=== PATIENT | female | born 1980 | race Caucasian/White ===

== ENCOUNTER 2023-11-04 13:19 | Inpatient (IN) | payer MEDICAID, OTHER, SELFPAY ==
--- NOTE | ~2023-11-04 | XR_ITS ---
EXAMINATION: XR CHEST CLINICAL INFORMATION: Cough. Fever. COMPARISON: None available. TECHNIQUE: 2 views of the chest were obtained. FINDINGS: No significant abnormality is noted involving the heart, lungs, mediastinum, bony thorax or soft tissues. XR/XR chest 2V IMPRESSION: Unremarkable examination.
--- NOTE | 2023-11-04 13:44 | ED_ITS ---
HPI - General Adult General Chief complaint: Psychiatric Symptoms Stated complaint: Mental Breakdown Time Seen by Provider: 11/04/23 13:55 Source: patient Mode of arrival: ambulatory Limitations: no limitations History of Present Illness HPI narrative: 43 yo female with PMH of opiate abuse IVDA and depression she notes she has been homeless and struggling. She has some sweats and a productive cough. She also has pain all over. She would be interested in starting methadone if she goes into withdrawal. She states she has been so depressed she is hitting herself in the head. Was on suboxone but has not taken it in a while complaint: depressed, URI, drug abuse Onset (ago): day(s) Radiation: non-radiation Severity: moderate Relieving factors: none Exacerbating factors: other (life stress) Associated symptoms: cough and fever/chills (subjective) Treatments prior to arrival: none Related Data Home Medications Medication Instructions Recorded Confirmed No Known Home Meds 11/04/23 11/04/23 Allergies Allergy/AdvReac Type Severity Reaction Status Date / Time No Known Allergies Allergy Verified 11/04/23 13:50 Review of Systems 2 Review of Systems: Constitutional : No Fever, No Chills ENT/Mouth : No Ear Pain, No Nasal Congestion, No sore throat Eyes: No Eye Pain, No Swelling, No Redness Cardiovascular : No Chest Pain, No SOB Respiratory : No Cough, No Sputum, No Dyspnea Gastrointestinal : No Nausea, No Vomiting, No Diarrhea, No Hematochezia, No Melena Genitourinary : No Dysuria, No Urinary Frequency, No Hematuria Musculoskeletal : No Myalgias Skin : No Skin Lesions, No rash Neuro : No Weakness, No Numbness, No Paresthesias, No Dizziness, No Headache Psych : positive Anxiety, positive Depression, positive SI no HI All other systems reviewed and are negative FOR[facility]LY [facility], [facility] Past Medical History Attestation statement: The following information was validated with the patient. Medical History Polysubstance abuse Social History Social History (Updated 11/04/23 @ 14:32 by Julia Butts DO) Comment: M3 Patient Tobacco Use Status: Current someday Tobacco user Smoked in Last 30 Days: Yes Use of substances other than those prescribed or required for medical reasons: Yes Substance Use Type: Crack/Cocaine and Heroin Advance Directives: Yes Advance Directives Information Provided: Yes Advance Directives on File: No Patient : No Physical Exam ED Vital Signs: Vital Signs - 24 hr 11/04/23 13:48 Temperature 98 F Pulse Rate 85 Respiratory Rate 16 Blood Pressure 108/50 L Pulse Oximetry 98 Oxygen Delivery Method Room Air BMI result Body Mass Index 16.5 Appearance: Alert. Oriented X3. No acute distress. Disheveled , talking fast , has crack pipe and used syringe along with drug paraphernalia in her belongings Eyes: Pupils equal, round and reactive to light. ENT: Pharynx normal. Neck: Normal inspection. Neck supple. CVS: Normal heart rate and rhythm. Pulses normal. Respiratory: No respiratory distress. Breath sounds normal. Abdomen: Soft and nontender. Skin: Skin warm and dry. Normal skin color. Normal skin turgor. Extremities: No lower extremity edema. Neuro: Oriented X 3. No motor deficit. No sensory deficit. Course Course Course Narrative: This is an RME: Additional HPI, ROS, PE not included below will be deferred to primary provider. Patient is a 43-year-old female who presents emergency department reporting that she has experiencing a mental breakdown, she reports being a Nomad, residing in a shack. Stats she is striking herself in the head, feels out of control, I need rest , feels overwhelmed, but denies SI. [facility] who were trying to facilitate respite but due to illness advised to come to ED. Having diffuse body pain, fevers, cough, and a fracture to left foot x2 years that is increasingly painful. Also using heroin IV and crack cocaine, not interested in detox. Plan: viral testing, labs for medical clearance, CARE team Reevaluation(s) Reevaluation #1: Physician observation started at 322pm. Patient placed in physician observation because the patient needed more time for CARE team to assess the need for psych admission. At the time observation was started the patient's vitals were stable, patient is alert and oriented but slightly anxious, Neuro: nonfocal, CV RRR, Lungs clear Reevaluation #2: 16:03 Dr. Chan's Note Physician observation continued Following information was obtained from the emergency depart Behavioral Unit nurse. Patient did receive 10 mg of methadone for withdrawal however she states she still feels like she is withdrawing and the last time she received methadone 40 mg did not even touch her. Patient states that she received methadone 2 months ago when she was at [employer] but has not been in a methadone program. Patient states she would be interested in getting into a methadone program to help with her opiate use disorder. I ordered methadone 40 mg now and 40 mg daily, patient will need to be evaluated by care team/recovery team to help her get into a methadone program. Time: 16:03 Medications Administered Discontinued Medications Generic Name Dose Route Start Last Admin Trade Name Kevin PRN Reason Stop Dose Admin Methadone HCl 10 mg 11/04/23 14:15 11/04/23 14:44 Methadone Hcl 20 Mg/2 Ml Oral.Conc PO 11/04/23 14:16 10 mg ONCE ONE Administration Medical Decision Making Medical Decision Making MDM Narrative: 43 yo female with PMH of substance abuse IVDA and now here with URI symptoms - flu covid CXR and basic labs ordered she is also reporting depression and self harm at this time methadone 10mg and CARE team consult ordered Differential Diagnosis Differential Diagnoses: The differential diagnosis associated with the presentation includes COVID, flu, drug abuse no back pain to suggest epidural abscess and walking around bending down without any issues Admission/Observation Consideration of admission/observation: Escalation of care including admission/observation considered observe until seen by CARE team Consult Healthcare Provider Management of the patient was discussed with: Behavioral Health Provider Lab Data [facility] Lab Attestation statement: I reviewed the patient's lab results. 11/04/23 14:43 11/04/23 14:43 Labs: Lab Results 11/04/23 11/04/23 Range/Units 14:43 15:07 WBC 8.1 (4.8-10.8) X10*3/uL RBC 4.91 (4.20-5.50) X10*6/uL Hgb 12.6 (12.0-16.0) g/dl Hct 40.1 (37.0-47.0) % MCV 81.7 (80.0-98.0) fL MCH 25.7 L (27.0-33.0) pg MCHC 31.4 (31.0-35.0) g/dl RDW 14.8 (11.0-16.0) % Plt Count 399 (160-400) X10*3/uL MPV 9.1 L (9.4-12.3) fL Immature Gran % (Auto) 0.4 (0.0-0.4) % Neut % (Auto) 64.4 (45-73) % Lymph % (Auto) 27.4 (20-40) % [place] % (Auto) 6.7 (2-11) % Eos % (Auto) 0.7 (0-4) % Baso % (Auto) 0.4 (0-2) % Lymph # (Auto) 2.2 (1.2-4.9) X10*3/uL [place] # (Auto) 0.5 (0.1-1.2) X10*3/uL Eos # (Auto) 0.1 (0.0-0.4) X10*3/uL Baso # (Auto) 0.0 (0.0-0.2) X10*3/uL Abs Immat Gran (auto) 0.03 (0.00-0.03) X10*3/uL Absolute Neuts (auto) 5.2 (2.0-8.3) x10*3/uL Absolute Nucleated RBC 0.000 (0.0-0.012) X10*3/uL Nucleated RBC % (auto) 0.0 (0.0-0.2) /100WBC Sodium 141 (135-145) mmol/L Potassium 4.2 (3.3-5.1) mmol/L Chloride 105 (96-108) mmol/L Carbon Dioxide 28 (22-29) mmol/L Anion Gap 12 (12-20) BUN 14 (9-16) mg/dL Creatinine 0.79 (0.5-1.4) mg/dL Estim Creat Clear Calc 60.4 Estimated GFR > 60 Random Glucose 96 (60-115) mg/dL Calcium 9.0 (8.4-10.2) mg/dL Total Bilirubin 0.3 (0.0-1.0) mg/dL AST 21 (5-31) U/L ALT 20 (0-31) U/L Alkaline Phosphatase 72 (39-117) U/L Total Protein 7.7 (6.5-8.0) g/dL Albumin 4.2 (3.5-5.0) g/dL Urine Color Yellow Urine Appearance Cloudy Urine pH 7.5 (5.0-9.0) Ur Specific [place] 1.025 (1.005-1.025) Urine Protein Trace (Neg-Trace) mg/dL Urine Glucose (UA) Negative (Negative) mg/dL Urine Ketones Negative (Negative) mg/dL Urine Blood Negative (Negative) Urine Nitrite Negative (Negative) Ur Leukocyte Esterase Small (1+) H (Negative) Urine RBC 0-2 (0-2) /HPF Urine WBC 6-10 (0-5) /HPF Ur Squamous Epith Cells 6-10 (0-2) /HPF Urine Bacteria 1+ (None Seen) Hyaline Casts 0-2 (0-2) /LPF Urine Test NEGATIVE (NEGATIVE) Urine Opiates Screen POSITIVE H (Not Detect) Urine Fentanyl Screen POSITIVE H (Not Detect) Ur Barbiturates Screen Not Detected (Not Detect) Ur Phencyclidine Scrn Not Detected (Not Detect) Ur Amphetamines Screen Not Detected (Not Detect) U Benzodiazepines Scrn Not Detected (Not Detect) Urine Cocaine Screen POSITIVE H (Not Detect) U Marijuana (THC) Screen Not Detected (Not Detect) Ethyl Alcohol < 10 mg/dL COVID-19 (MAXINE) Negative (Negative) COVID-19 Clin Com See Note Influenza Type A (ARNOLDO) Negative (Negative) Influenza Type B (ARNOLDO) Negative (Negative) Influenza A & B Note See Note Independent Interpretation I performed an independent interpretation of an: Plain X-Ray Radiology Impression Discussion of test interpretation with radiology: I have reviewed the radiologist's reading. Social Determinants Patient?s care significantly limited by Social Determinants of Health including: Inadequate housing, Low income, Problems related to primary support group and Unemployment Discharge Plan Discharge Clinical Impression: Depression, Polysubstance abuse Patient Disposition: Still a Patient Prescriptions: No Action No Known Home Meds Interventions: [place]-Suicide Risk Severity Scale Last Done: 11/04/23 14:00 ED Discharge Assessment Last Done: 11/04/23 14:06 Admission Worksheet (ED) Last Done: 11/04/23 14:09 Print Language: Luxembourgish
[2023-11-04 13:48] VITALS: BP 108/50; PULSE 85; RESP 16; TEMP 36.6; O2SAT 98; BMI 16.5
--- NOTE | 2023-11-04 14:02 | PC.NURSE ---
PT SEEN BY DR. CRANE. PT AWARE OF PLAN OF CARE.
[2023-11-04] MEDS: methADONE HCl 20 MG/2 ML ORAL.CONC 10 MG PO (14:44)
[2023-11-04 14:53] LABS: MANUAL DIFF FLAG NO
[2023-11-04 14:57] LABS: Basophils Percent Auto 0.4 % (0-2); Eosinophils Absolute Auto 0.1 X10*3/uL (0.0-0.4); Eosinophils Percent Auto 0.7 % (0-4); Hematocrit 40.1 % (37.0-47.0); Hemoglobin 12.6 g/dl (12.0-16.0); Imm Gran Abs Auto 0.03 X10*3/uL (0.00-0.03); Imm Gran Pct Auto 0.4 % (0.0-0.4); Lymphocytes Absolute Auto 2.2 X10*3/uL (1.2-4.9); Lymphocytes Percent Auto 27.4 % (20-40); Mean Corpuscular HGB Conc 31.4 g/dl (31.0-35.0); Mean Corpuscular Hemoglobin 25.7 pg (27.0-33.0); Mean Corpuscular Volume 81.7 fL (80.0-98.0); Mean Platelet Volume 9.1 fL (9.4-12.3); Monocytes Absolute Auto 0.5 X10*3/uL (0.1-1.2); Monocytes Percent Auto 6.7 % (2-11); Neutrophils Absolute Auto 5.2 x10*3/uL (2.0-8.3); Neutrophils Percent Auto 64.4 % (45-73); Platelet Count 399 X10*3/uL (160-400); Red Blood Count 4.91 X10*6/uL (4.20-5.50); Red Cell Distribution Width 14.8 % (11.0-16.0); White Blood Count 8.1 X10*3/uL (4.8-10.8)
--- NOTE | 2023-11-04 15:06 | PC.NURSE ---
Addendum entered by Karen Robledo 11/04/23 16:21: PT HAD A CXR DONE AND NOT AN X-RAY OF HER L FOOT. Original Note: PT RETURN FROM X-RAY DEPT. X-RAY DONE TO L FOOT (BUNION AREA). L FOOT IS REDEN, SWELLING AND TENDER TO TOUCH.
[2023-11-04 15:15] LABS: Ethanol < 10 mg/dL
[2023-11-04 15:16] LABS: Alanine Aminotransferase 20 U/L (0-31); Albumin Level 4.2 g/dL (3.5-5.0); Alkaline Phosphatase 72 U/L (39-117); Anion Gap 12 (12-20); Aspartate Amino Transferase 21 U/L (5-31); Bilirubin Total 0.3 mg/dL (0.0-1.0); Blood Urea Nitrogen 14 mg/dL (9-16); Carbon Dioxide 28 mmol/L (22-29); Chloride 105 mmol/L (96-108); Creatinine Clr Calc Pharmacy 60.4; Estimated Glomerular Filt Rate > 60; Glucose Random 96 mg/dL (60-115); Potassium 4.2 mmol/L (3.3-5.1); Sodium 141 mmol/L (135-145); Total Protein 7.7 g/dL (6.5-8.0)
[2023-11-04 15:17] LABS: Appearance Urine Cloudy; Color Urine Yellow; Glucose Urine UA Negative (Negative); Leukocyte Esterase Urine Small (1+) (Negative); Nitrite Urine Negative (Negative); PH 7.5 (5.0-9.0); Specific Gravity - Urine 1.025 (1.005-1.025); UMIC TRIGGER UACC YES; Urine Blood Negative (Negative); Urine Ketones Negative (Negative); Urine Protein Trace mg/dL (Neg-Trace)
[2023-11-04 15:18] LABS: UPreg QC Valid YES; Urine Pregnancy NEGATIVE (NEGATIVE)
[2023-11-04 15:21] LABS: COVID-19 Test Negative (Negative); IDNOW Serial# 152EDE1D; IDNOW Serial# 9DB6401D; Influenza A Negative (Negative); Influenza B2 Negative (Negative)
[2023-11-04 15:22] LABS: Amphetamine Screen Urine Not Detected (Not Detect); Barbiturates, Urine Not Detected (Not Detect); Benzodiazepines Screen Urine Not Detected (Not Detect); Cannabinoid Screen Urine Not Detected (Not Detect); Cocaine Screen Urine POSITIVE (Not Detect); Fentanyl, urine POSITIVE (Not Detect); Opiate Screen Urine POSITIVE (Not Detect); Phencyclidine Screen Urine Not Detected (Not Detect)
[2023-11-04 15:38] LABS: Bacteria Urine 1+ (None Seen); Hyaline Casts Urine 0-2 /LPF (0-2); RBC Urine 0-2 /HPF (0-2); UACC Culture Trigger YES
--- NOTE | 2023-11-04 15:50 | PC.NURSE ---
PT IS C/O CONGESTED, INCREASE URINARY FREQUENCY, HOT/COLD SWEATS AND I AM FEELING INFLATED . PT IS REQUESTING MORE METHADONE THAN THE DOSING OF METHADONE 10MG PO THAT SHE RECEIVED EARLIER. AWARE.
[2023-11-04] MEDS: methADONE HCl 20 MG/2 ML ORAL.CONC 40 MG PO (16:06)
--- NOTE | 2023-11-04 16:09 | PC.NURSE ---
PT MED X 1 WITH METHADONE 40MG PO. PT FACE APPEARS FLUSHED. WILL CONTINUE TO MONITOR.
--- NOTE | 2023-11-04 16:49 | PC.NURSE ---
GRADUATE ENGINEER (ELYSSA) AT BEDSIDE. PT AWARE OF PLAN OF CARE.
--- NOTE | 2023-11-04 17:20 | PC.NURSE ---
resting quietly in bed. nad. chest rise noted.
[2023-11-04 22:43] VITALS: BP 112/65; PULSE 58; RESP 20; TEMP 36.6; O2SAT 100
[2023-11-05 00:49] VITALS: BP 147/72; PULSE 65; RESP 17; TEMP 36.1; O2SAT 99
[2023-11-05] MEDS: methADONE HCl 20 MG/2 ML ORAL.CONC 40 MG PO (07:58)
[2023-11-05 08:11] VITALS: BP 133/71; PULSE 75; RESP 20; TEMP 37.2; O2SAT 99
--- NOTE | 2023-11-05 11:14 | PC.NURSE ---
Assumed care of patient at 1100, pt is sleeping at this time, equal chest rise noted, no apparent distress. Per CARE team, patient will be seen by recovery at some point today and then disposition will be determined.
--- NOTE | 2023-11-05 16:23 | MHC.RECOVRN ---
T/W went to meet with pt and provide support re: DARCIE and W/D sx. Pt in bed 3. Pt reports using heroin, approx 1gm (4-6 bags/day for the last 6-7 months. She has been using heroin for approx 1.5 years via IV route and last use was yesterday at 6AM. Pt did report a period of 9 months of sobriety during the 1.5 year time which was achieved on suboxone. Pt is currently receiving 40mg of methadone/day in ER for W/D sx. During my visit she was experiencing nausea, runny nose, increased urination, sweating and chills and her body feels inflated . She reports that the methadone just makes her more tired but does not take away the W/D sx. She reports that she has used subutex in the past when W/D with success. Pt's current goal is to receive treatment for her mental health (stabalization) and to get back into suboxone treatment. Pt also sounds somewhat congested. Uring culture, chest x ray and labs unremarkable for infection. Discussed case with supervisor phosphatic fertilizer Stacy Webb and she will decrease methadone and recommends pt other sx be treated medically (I.e. tylenol/motrin). Once pt's psych disposition is decided we will assist with connecting her with MAT resources. This expert medical writer communicated plan to care team, nurse Karla and pt. I will check on pt. tomorrow for further needs.
[2023-11-05] MEDS: LORazepam 1 MG TABLET PO (18:34)
[2023-11-05 18:52] VITALS: BP 122/74; PULSE 67; RESP 18; TEMP 36.3; O2SAT 98
--- NOTE | 2023-11-05 22:52 | PC.NURSE ---
Pt had uneventful day, now sleeping, respirations even and unlabored, no apparent distress. Continue plan of care for CARE/recovery follow up in am
--- NOTE | 2023-11-06 | ECG_ITS ---
Test Reason : pos cocaine Blood Pressure : / mmHG Vent. Rate : 079 BPM Atrial Rate : 079 BPM P-R Int : 138 ms QRS Dur : 094 ms QT Int : 404 ms P-R-T Axes : 064 078 021 degrees QTc Int : 463 ms Sinus rhythm with occasional Premature ventricular complexes Incomplete right bundle branch block Borderline ECG No previous ECGs available Referred By: Julia Butts Electronically Signed By:COREY SHAFFER MD
[2023-11-06 03:04] VITALS: BP 138/77; PULSE 75; RESP 15; TEMP 37.1; O2SAT 99
--- NOTE | 2023-11-06 06:36 | PC.NURSE ---
Assumed care of pt at 2300. Pt had an uneventful night. OOB independently to go to the bathroom, and back to bed. Plan of care ongoing.
[2023-11-06] MEDS: methADONE HCl 20 MG/2 ML ORAL.CONC PO (07:58)
[2023-11-06] MEDS: LORazepam 1 MG TABLET PO (08:19)
[2023-11-06 08:23] VITALS: BP 133/70; PULSE 80; RESP 16; TEMP 36.7; O2SAT 97
--- NOTE | 2023-11-06 11:02 | PC.NURSE ---
Assumed care of patient at 1045, patient is sleeping at this time, respirations even and unlabored, skin is pwd, pt appears to be in no apparent distress. Morning hydroxizine and methadone dose not given by am RN due to patient falling asleep after initial morning dose of methadone.
--- NOTE | 2023-11-06 14:17 | PC.NURSE ---
Addendum entered by Iraida Barclay 11/06/23 14:17: continue plan of care for dual diagnosis bedsearch Original Note: Pt moved from BH 3 to ED 11 without issue. Pt calm and cooperative, respirations even and unlabored, offering no complaints at this time
[2023-11-06] MEDS: Ibuprofen 600 MG TABLET PO (15:00)
[2023-11-06] MEDS: cloNIDine HCL 0.1 MG TABLET PO (15:00)
[2023-11-06] MEDS: hydrOXYzine HCL 25 MG TABLET PO ×3 (15:01→20:37)
[2023-11-06 15:09] VITALS: BP 112/72; PULSE 77; RESP 16; TEMP 36.7; O2SAT 98
[2023-11-06 15:56] VITALS: PULSE 77
--- NOTE | 2023-11-06 16:08 | MHC.RECOVRN ---
T/W went to check on pt's symptom management this AM and re-assess for ATS vs. dual diagnosis bed. I met with pt. with care team staff Anahi. Pt still reporting she is uncomfortable with sweating and chills and that she can not rest comfortably. She was also upset that her methadone dose was decreased. We reviewed the discussion we had yesterday and pt. agrees that a higher dose of methadone may be needed to manage W/D. I contacted provider Stacy and reviewed symptoms and she increased methadone back to 40mg and also ordered comfort meds. I updated pt's nurse Karla and at the time pt was resting comfortably so I did not disturb her. We will continue to be available as needed for support
--- NOTE | 2023-11-06 21:54 | PC.NURSE ---
Assumed care of the pt at 1900. Pt ahs been asleep in bed, no complaints at this time. Food tray at bedside.
[2023-11-06 22:00] VITALS: BP 99/58; PULSE 73; RESP 16; TEMP 36.7; O2SAT 99
--- NOTE | 2023-11-06 22:01 | MHC.EDTECH ---
Patient slept most of the time ,ate 50 % of meals and drank 600 ml fluids ,1:1sitter at bedside .
--- NOTE | 2023-11-07 00:07 | PC.NURSE ---
Pt asleep at this time
[2023-11-07] MEDS: cloNIDine HCL 0.1 MG TABLET PO ×3 (04:59→18:20)
[2023-11-07] MEDS: Ibuprofen 600 MG TABLET PO (07:23)
[2023-11-07] MEDS: methADONE HCl 20 MG/2 ML ORAL.CONC 40 MG PO (07:23)
[2023-11-07] MEDS: hydrOXYzine HCL 25 MG TABLET PO ×4 (07:24→21:01)
--- NOTE | 2023-11-07 07:30 | PC.NURSE ---
Assumed care of pt from previous RN, pt c/o muscle cramps. Pt medicated per DEC. Pt ambulatory to commode.
[2023-11-07 08:48] VITALS: BP 119/62; PULSE 83; RESP 17; O2SAT 98
[2023-11-07 09:01] LABS: COVID-19 Test Negative (Negative); IDNOW Serial# 9DB6401D
--- NOTE | 2023-11-07 09:15 | PC.NURSE ---
Addiction medicine at bedside to evaluate patient.
--- NOTE | 2023-11-07 10:17 | MHC.RECOVRN ---
Met with pt after pt expressed interest in Subutex. Pt sitting in bed, awake, alert, easily engages in conversation. Pt reports having success with Subutex in the past and is interested in restarting. Educated pt on transition and precipitated withdrawal. Pt reports she will discuss transition once placed at dual dx facility. Pt agreeable to continue methadone to address withdrawal symptoms while at [facility]. Denies other questions or concerns. Provider aware.
--- NOTE | 2023-11-07 10:46 | PC.NURSE ---
Pt given ice cream per request, pt making her needs known. A&Ox3, calm cooperative.
[2023-11-07 15:32] VITALS: BP 82/47; PULSE 77; RESP 18; TEMP 36.7; O2SAT 98
--- NOTE | 2023-11-07 17:46 | PC.NURSE ---
Nursing note: 43 year old female DX: Moderate opioid use disorder, Moderate stimulant use disorder, Unspecified depressive disorder. Referred for treatment by CARE team. Arrived to unit approx: 1728. Patient signed conditional voluntary for admission. Skin check completed with EG RN. Patient cooperative with requests. Affect is tearful. Reports suicidal thoughts, feeling hopeless. States I don't want to suffer anymore, I want to feel better, not hopeless . There is nothing for me . Reports currently homeless, and can't find my family . Disheveled, poor attn to ADLS. Reports she would like to get her mental health organized, maintain better weight, not feel sick. States she has been using 1 gm of heroin/fentanyl by injection daily. States Subutex has been helpful in past. TOX screen positive for opioids and cocaine. Nursing assessment to be completed.
[2023-11-07 17:57] VITALS: BP 93/59; PULSE 67; RESP 16; TEMP 36.4; O2SAT 99
[2023-11-07 18:26] VITALS: BMI 18.1
[2023-11-07 20:20] VITALS: BP 71/41; PULSE 74; RESP 16; TEMP 36.6; O2SAT 98
[2023-11-07] MEDS: QUEtiapine Fumarate 50 MG TABLET PO (21:26)
[2023-11-07 21:30] VITALS: BP 116/78
[2023-11-08] MEDS: cloNIDine HCL 0.1 MG TABLET PO (05:32)
[2023-11-08 05:36] VITALS: BP 126/62; PULSE 80
--- NOTE | 2023-11-08 05:39 | PC.NURSE ---
Shairta c/o akathisia type symptoms. I've been feeling l;leola this since the ER muscles very still c/o difficulty walking. patient encouraged to speak with provider in am
[2023-11-08 07:40] VITALS: BP 96/56; PULSE 72; RESP 14; TEMP 36.4; O2SAT 99
[2023-11-08] MEDS: Acetaminophen 325 MG TABLET 650 MG PO (08:06)
[2023-11-08] MEDS: hydrOXYzine HCL 25 MG TABLET PO ×2 (08:06→12:59)
[2023-11-08] MEDS: methADONE HCl 20 MG/2 ML ORAL.CONC 40 MG PO (08:08)
[2023-11-08] MEDS: Nicotine Polacrilex 2 MG GUM 4 MG BUCCAL (08:56)
--- NOTE | 2023-11-08 12:19 | PC.NURSE ---
pt refused flu vaccine
--- NOTE | 2023-11-08 14:00 | HO.PSYADMNOT ---
HPI Date of Service: 11/08/23 Chief Complaint: Crisis Sources of Information: patient interviewed, chart reviewed and crisis/core team assessment reviewed HPI Subjective Notes: [place] Warning (given and shows understanding) and Conditional Voluntary Narrative: Ms. Sow is a 43 year-old woman who self presented to [facility] ED reporting depression and SI. Her utox was positive for opioids, fentanyl, cocaine. On the unit, pt presents as disheveled. She reports she came to the hospital because I had a fever for the past 2 years. She reports there is something internally wrong, I'm stiff, my muscles are not working, my brain wave is functioning, the patterns that goes through, the profession of my brain, I know what is right and what is wrong. She continued stating basically, I am a smart woman, there is something inside my that needs to come out. She also reports that there have been political forces preventing her from finding her family and having access to her money. She thinks she has about trillion dollars. She denies SI/HI. She appears internally preoccupied although she denies hearing voices. She reports poor sleep. She reports she has been homeless for about 2 years. She states she stays sometimes in the streets. Past Psychiatric History: Inpt: reports previous admission 2020 [facility] OP: none Past trial: risperidone Medical Evaluation Reviewed: Yes [facility] Medical History Polysubstance abuse Social History: reports she is . reports having children. not working Reports source of income is [employer]. Substance History: opioid: reports using on and off for the past 2 years. she reports using 2 grams daily cocaine: reports using 0.5 grams twice a week Alcohol: denies Diagnostics Vital Signs (24Hr): Vital Signs - 24 hr 11/07/23 15:32 11/07/23 17:57 11/07/23 20:20 Temperature 98.1 F 97.5 F 97.9 F Pulse Rate 77 67 74 Respiratory Rate 18 16 16 Blood Pressure 82/47 L 93/59 L 71/41 L Pulse Oximetry 98 99 98 Oxygen Delivery Method Room Air Room Air Room Air 11/07/23 21:30 11/08/23 05:36 11/08/23 07:40 Temperature 97.5 F Pulse Rate 80 72 Respiratory Rate 14 Blood Pressure 116/78 126/62 96/56 L Pulse Oximetry 99 Oxygen Delivery Method Room Air BMI result Body Mass Index 18.1 Labs 11/04/23 14:43 11/04/23 14:43 Labs: Laboratory Results - last 48 hr 11/07/23 08:32 COVID-19 (MAXINE) Negative COVID-19 Clin Com See Note Imaging Radiology Impressions: ITS Impressions Chest X-Ray 11/04/23 15:00 IMPRESSION: Unremarkable examination. Meds/Allergies Meds Home Medications Medication Instructions Recorded Confirmed Type No Known Home Meds 11/04/23 11/04/23 History Allergies Allergies Allergy/AdvReac Type Severity Reaction Status Date / Time No Known Allergies Allergy Verified 11/04/23 13:50 Mental Status Exam Mental Status Exam Narrative: Appearance: disheveled, unkempt, in NAD Behavior: cooperative Psychomotor: no agitation or retardation noted Speech: clear, normal rate/rhythm/volume, spontaneous TP: tangential, circumstantial at times TC: somatic preoccupations, paranoid delusions as well Mood: okay Affect: constricted SI: denies HI: denies VH/AH: appears internally preoccupied but denies when asked Delusions: somatic and paranoid delusions Insight/judgment: fair x 2. Memory/cog: alert, oriented x 3. Assessment & Plan Assessment & Plan (1) Schizophrenia: Status: Acute Code(s): F20.9 - Schizophrenia, unspecified (2) Cocaine use disorder, moderate, dependence: Status: Acute Code(s): F14.20 - Cocaine dependence, uncomplicated (3) Opioid use disorder, moderate, dependence: Status: Acute Code(s): F11.20 - Opioid dependence, uncomplicated Plan Ms. Sow is a 43 year-old woman who self presented to [facility] ED reporting increase depression and SI. She also presents with complex system of delusions including paranoid and somatic delusions. It appears she has been mostly untreated. She also presents with substance use disorder. she was started on methadone. We discussed risks, benefits and alternative treatment options, pt agreed to start risperidone. PLAN 1. Admit to M3, cv 15 minutes checks 2. start risperidone 1mg po BID 3. aftercare planning 4. obtain collateral information Patient educated on: diagnosis, medication risk/benefits and substance abuse Reason for continued inpatient stay Substantial Risk for: harm to self and inability to function Statement Statement: I have reviewed the history and physical and performed a pertinent examination on my patient. No changes have occurred unless specified. If the History and Physical was not performed prior to admission, the Hospitalist's service will be consulted for completing the admission physical. Time Spent With Patient Time: Total time managing care of this patient today ____ minutes.
[2023-11-08] MEDS: Loperamide HCl 2 MG CAPSULE 4 MG PO (14:31)
[2023-11-08] MEDS: Ibuprofen 600 MG TABLET PO (14:31)
[2023-11-08] MEDS: risperiDONE 1 MG TABLET PO (20:25)
[2023-11-08] MEDS: QUEtiapine Fumarate 50 MG TABLET PO (20:25)
[2023-11-08 20:26] VITALS: BP 101/60; PULSE 86; RESP 14; TEMP 37.2; O2SAT 99
[2023-11-08 22:51] VITALS: BP 98/55; PULSE 100; RESP 14; TEMP 37.1; O2SAT 98
[2023-11-09] MEDS: methADONE HCl 20 MG/2 ML ORAL.CONC 40 MG PO (08:16)
--- NOTE | 2023-11-09 10:04 | P.PNPSI_ITS ---
Subjective Subjective Date of Service: 11/09/23 Reason For Visit: Crisis Subjective Notes: Conditional Voluntary Interim History: Reviewed with . Keeping to self. Not attending groups. Pt reports she did not take the risperidal this morning because she does not like the way it made her feel; pt was unable to elaborate on this. Discussed zyprexa;risks/benefits, pt agreed to trial medication. She also requested to start hydroxyzine d/t helping with her anxiety. Pt stated, I get overwhelmed with boredom. I just want to punch myself sometimes. I feel like someone is inside me . Pt reports auditory and visual hallucinations; pt stated, the voices make fun of me and I see shadows . Pt reports she would like to go to a substance abuse program when discharged from hospital. Medication Compliance: Intermittent Attending Groups: No Review of Systems Constitutional: Reports as per HPI Eyes: Reports as per HPI Reports as per HPI Cardiovascular: Reports as per HPI Respiratory: Reports as per HPI Gastrointestinal: Reports as per HPI Genitourinary: Reports as per HPI Musculoskeletal: Reports as per HPI Skin/Breast: Reports as per HPI Reports as per HPI Psychiatric: Reports as per HPI Endocrine: Reports as per HPI Hematologic/Lymphatic: Reports as per HPI Allergic/Immunologic: Reports as per HPI Mental Status Exam Mental Status Exam Narrative: Pt is alert and oriented; behavior is cooperative; dressed in casual attire; mood is described as okay ; eye contact appropriate; Speech is normal rate, volume and prosody and not pressured; thought process is organized and goal directed; Thought content is on tx; pt reports she feels as if someone is inside of her . Reports auditory and visual hallucinations. denies SI/HI. Diagnostics Vital Signs (24Hr): Vital Signs - 24 hr 11/08/23 20:26 11/08/23 22:51 Temperature 99.0 F 98.8 F Pulse Rate 86 100 Respiratory Rate 14 14 Blood Pressure 101/60 98/55 L Pulse Oximetry 99 98 Oxygen Delivery Method Room Air Room Air BMI result Body Mass Index 18.1 Labs 11/04/23 14:43 11/04/23 14:43 Imaging Radiology Impressions: ITS Impressions Chest X-Ray 11/04/23 15:00 IMPRESSION: Unremarkable examination. Medications Medications Current Medications Acetaminophen (Acetaminophen 325 Mg Tablet) 650 mg PO Q6H PRN PRN Reason: Headache/Pain Mild Scale (1-3) Last Admin: 11/08/23 08:06 Dose: 650 mg Al Hydroxide/Mg Hydroxide (Magnesium Hydrox/Alum Hydrox 30 Ml Oral.Susp) 30 ml PO Q6H PRN PRN Reason: Heartburn/Nausea Ibuprofen (Ibuprofen 600 Mg Tablet) 600 mg PO Q8H PRN PRN Reason: Pain, Mild (Pain Scale 1-3) Last Admin: 11/08/23 14:31 Dose: 600 mg Loperamide HCl (Loperamide Hcl 2 Mg Capsule) 4 mg PO Q4H PRN PRN Reason: Diarrhea Last Admin: 11/08/23 14:31 Dose: 4 mg Magnesium Hydroxide (Milk Of Magnesia 30 Ml Oral.Susp) 30 ml PO DAILY PRN PRN Reason: Constipation Methadone HCl (Methadone Hcl 20 Mg/2 Ml Oral.Conc) 40 mg PO DAILY [facility] Last Admin: 11/09/23 08:16 Dose: 40 mg Nicotine Polacrilex (Nicotine Polacrilex 2 Mg Gum) 4 mg BUCCAL Q2H PRN PRN Reason: Nicotine Cravings Last Admin: 11/08/23 08:56 Dose: 4 mg Olanzapine (Olanzapine Odt 10 Mg Tab.Rapdis) 10 mg TRANSLINGU Q6H PRN PRN Reason: agitation Quetiapine Fumarate (Quetiapine Fumarate 50 Mg Tablet) 50 mg PO BEDTIME [facility] Last Admin: 11/08/23 20:25 Dose: 50 mg Risperidone (Risperidone 1 Mg Tablet) 1 mg PO BID [facility] Last Admin: 11/09/23 08:19 Dose: Not Given Trazodone HCl (Trazodone Hcl 50 Mg Tablet) 50 mg PO BEDTIME MRX1 PRN PRN Reason: Insomnia Allergies Allergies Allergy/AdvReac Type Severity Reaction Status Date / Time No Known Allergies Allergy Verified 11/04/23 13:50 Assessment & Plan Assessment & Plan (1) Schizophrenia: Status: Acute Code(s): F20.9 - Schizophrenia, unspecified (2) Cocaine use disorder, moderate, dependence: Status: Acute Code(s): F14.20 - Cocaine dependence, uncomplicated (3) Opioid use disorder, moderate, dependence: Status: Acute Code(s): F11.20 - Opioid dependence, uncomplicated Plan Ms. Sow is a 43 year-old woman who self presented to [facility] reporting increase depression and SI. She also presents with complex system of delusions including paranoid and somatic delusions. It appears she has been mostly untreated. She also presents with substance use disorder. she was started on methadone. We discussed risks, benefits and alternative treatment options, pt agreed to start risperidone. PLAN 1. Admit to M3, cv 15 minutes checks 2. start risperidone 1mg po BID 3. aftercare planning 4. obtain collateral information 11/09: Keeping to self. Not attending groups. Pt reports she did not take the risperidal this morning because she does not like the way it made her feel; pt was unable to elaborate on this. Discussed zyprexa;risks/benefits, pt agreed to trial medication. She also requested to start hydroxyzine d/t helping with her anxiety. Pt stated, I get overwhelmed with boredom. I just want to punch myself sometimes. I feel like someone is inside me . Pt reports auditory and visual hallucinations; pt stated, the voices make fun of me and I see shadows . Pt reports she would like to go to a substance abuse program when discharged from hospital. DC Risperidal DC Seroquel Start: Zyprexa 10mg PO bedtime Cogentin 0.5mg PO bedtime Hydroxyzine 25mg PO Q6HR PRN anxiety Patient educated on: diagnosis, medication risk/benefits, substance abuse and therapeutic strategies Informed Consent: understands Reason for continued inpatient stay Substantial Risk for: med/psych decompensation Time Spent With Patient Time: Total time managing care of this patient today _30___ minutes.
[2023-11-09] MEDS: hydrOXYzine HCL 25 MG TABLET PO ×2 (13:07→20:09)
[2023-11-09 20:05] VITALS: BP 105/62; PULSE 92; RESP 18; TEMP 36.6; O2SAT 100
[2023-11-09] MEDS: Acetaminophen 325 MG TABLET 650 MG PO (20:09)
[2023-11-09] MEDS: traZODone HCL 50 MG TABLET PO (20:09)
[2023-11-09] MEDS: Benztropine Mesylate 0.5 MG TABLET PO (20:09)
[2023-11-09] MEDS: OLANZapine 10 MG TABLET PO (20:09)
--- NOTE | 2023-11-09 20:34 | PC.NURSE ---
Sharita reported that it was against her 's restorationist to do any vaginal swabs.
[2023-11-09 23:14] LABS: Influenza A PCR NEGATIVE (Negative); Influenza B PCR NEGATIVE (Negative); Resp Syncy Virus RNA Qual PCR NEGATIVE (Negative); SARS COV2 PCR INHOUSE NEGATIVE (Negative)
[2023-11-10 07:10] VITALS: BP 112/71; PULSE 77; RESP 16; TEMP 36.6; O2SAT 99
[2023-11-10] MEDS: methADONE HCl 20 MG/2 ML ORAL.CONC 40 MG PO (08:32)
--- NOTE | 2023-11-10 10:16 | P.PNPSI_ITS ---
Subjective Subjective Date of Service: 11/10/23 Reason For Visit: Crisis Subjective Notes: Conditional Voluntary Interim History: Reviewed with . Pt reports feeling okay today;pt stated, I have anxiety on and off. I wacked myself in the face yesterday. I don't want to hit myself, sometimes I get overwhelmed. I love myself. I no longer feel like anyone is trying to rape me but the voices keep telling me that someone is trying to kill and rape me and my family . Pt reports visual hallucinations of shadow people . pt denies any side effects from Zyprexa. denies SI/HI. Medication Compliance: Yes Side effects from medications: No Attending Groups: No Review of Systems Constitutional: Reports as per HPI Eyes: Reports as per HPI Reports as per HPI Cardiovascular: Reports as per HPI Respiratory: Reports as per HPI Gastrointestinal: Reports as per HPI Genitourinary: Reports as per HPI Musculoskeletal: Reports as per HPI Skin/Breast: Reports as per HPI Reports as per HPI Psychiatric: Reports as per HPI Endocrine: Reports as per HPI Hematologic/Lymphatic: Reports as per HPI Allergic/Immunologic: Reports as per HPI Mental Status Exam Mental Status Exam Narrative: Pt is alert and oriented; behavior is cooperative; dressed in casual attire; mood is described as okay ; eye contact appropriate; Speech is normal rate, volume and prosody and not pressured; thought process is organized and goal directed; Thought content is on tx; Reports auditory and visual hallucinations. denies SI/HI. Diagnostics Vital Signs (24Hr): Vital Signs - 24 hr 11/09/23 20:05 11/10/23 07:10 Temperature 97.8 F 97.8 F Pulse Rate 92 77 Respiratory Rate 18 16 Blood Pressure 105/62 112/71 Pulse Oximetry 100 99 Oxygen Delivery Method Room Air Room Air BMI result Body Mass Index 18.1 Labs 11/04/23 14:43 11/04/23 14:43 Labs: Laboratory Results - last 48 hr 11/09/23 20:00 Influenza Type A (PCR) NEGATIVE Influenza Type B (PCR) NEGATIVE RSV RNA Qual (PCR) NEGATIVE SARS-CoV-2 RNA (RT-PCR) NEGATIVE Imaging Radiology Impressions: ITS Impressions Chest X-Ray 11/04/23 15:00 IMPRESSION: Unremarkable examination. Medications Medications Current Medications Acetaminophen (Acetaminophen 325 Mg Tablet) 650 mg PO Q6H PRN PRN Reason: Headache/Pain Mild Scale (1-3) Last Admin: 11/09/23 20:09 Dose: 650 mg Al Hydroxide/Mg Hydroxide (Magnesium Hydrox/Alum Hydrox 30 Ml Oral.Susp) 30 ml PO Q6H PRN PRN Reason: Heartburn/Nausea Benztropine Mesylate (Benztropine Mesylate 0.5 Mg Tablet) 0.5 mg PO BEDTIME [facility] Last Admin: 11/09/23 20:09 Dose: 0.5 mg Hydroxyzine HCl (Hydroxyzine Hcl 25 Mg Tablet) 25 mg PO Q6H PRN PRN Reason: Anxiety Last Admin: 11/09/23 20:09 Dose: 25 mg Ibuprofen (Ibuprofen 600 Mg Tablet) 600 mg PO Q8H PRN PRN Reason: Pain, Mild (Pain Scale 1-3) Last Admin: 11/08/23 14:31 Dose: 600 mg Loperamide HCl (Loperamide Hcl 2 Mg Capsule) 4 mg PO Q4H PRN PRN Reason: Diarrhea Last Admin: 11/08/23 14:31 Dose: 4 mg Magnesium Hydroxide (Milk Of Magnesia 30 Ml Oral.Susp) 30 ml PO DAILY PRN PRN Reason: Constipation Methadone HCl (Methadone Hcl 20 Mg/2 Ml Oral.Conc) 40 mg PO DAILY [facility] Last Admin: 11/10/23 08:32 Dose: 40 mg Nicotine Polacrilex (Nicotine Polacrilex 2 Mg Gum) 4 mg BUCCAL Q2H PRN PRN Reason: Nicotine Cravings Last Admin: 11/08/23 08:56 Dose: 4 mg Olanzapine (Olanzapine 10 Mg Tablet) 10 mg PO BEDTIME [facility] Last Admin: 11/09/23 20:09 Dose: 10 mg Trazodone HCl (Trazodone Hcl 50 Mg Tablet) 50 mg PO BEDTIME MRX1 PRN PRN Reason: Insomnia Last Admin: 11/09/23 20:09 Dose: 50 mg Allergies Allergies Allergy/AdvReac Type Severity Reaction Status Date / Time No Known Allergies Allergy Verified 11/04/23 13:50 Assessment & Plan Assessment & Plan (1) Schizophrenia: Status: Acute Code(s): F20.9 - Schizophrenia, unspecified (2) Cocaine use disorder, moderate, dependence: Status: Acute Code(s): F14.20 - Cocaine dependence, uncomplicated (3) Opioid use disorder, moderate, dependence: Status: Acute Code(s): F11.20 - Opioid dependence, uncomplicated Plan Ms. Sow is a 43 year-old woman who self presented to [facility] reporting increase depression and SI. She also presents with complex system of delusions including paranoid and somatic delusions. It appears she has been mostly untreated. She also presents with substance use disorder. she was started on methadone. We discussed risks, benefits and alternative treatment options, pt agreed to start risperidone. PLAN 1. Admit to M3, cv 15 minutes checks 2. start risperidone 1mg po BID 3. aftercare planning 4. obtain collateral information 11/09: Keeping to self. Not attending groups. Pt reports she did not take the risperidal this morning because she does not like the way it made her feel; pt was unable to elaborate on this. Discussed zyprexa;risks/benefits, pt agreed to trial medication. She also requested to start hydroxyzine d/t helping with her anxiety. Pt stated, I get overwhelmed with boredom. I just want to punch myself sometimes. I feel like someone is inside me . Pt reports auditory and visual hallucinations; pt stated, the voices make fun of me and I see shadows . Pt reports she would like to go to a substance abuse program when discharged from hospital. DC Risperidal DC Seroquel Start: Zyprexa 10mg PO bedtime Cogentin 0.5mg PO bedtime Hydroxyzine 25mg PO Q6HR PRN anxiety 11/10: Pt reports feeling okay today;pt stated, I have anxiety on and off. I wacked myself in the face yesterday. I don't want to hit myself, sometimes I get overwhelmed. I love myself. I no longer feel like anyone is trying to rape me but the voices keep telling me that someone is trying to kill and rape me and my family . Pt reports visual hallucinations of shadow people . pt denies any side effects from Zyprexa. denies SI/HI. Continue current tx plan. Patient educated on: diagnosis, medication risk/benefits, substance abuse and therapeutic strategies Informed Consent: understands Reason for continued inpatient stay Substantial Risk for: med/psych decompensation Time Spent With Patient Time: Total time managing care of this patient today _30___ minutes.
[2023-11-10] MEDS: hydrOXYzine HCL 25 MG TABLET PO (16:24)
[2023-11-10 17:18] VITALS: BMI 18.9
[2023-11-10 20:30] VITALS: BP 105/66; PULSE 77; RESP 15; TEMP 36.1; O2SAT 98
[2023-11-10] MEDS: OLANZapine 10 MG TABLET PO (21:01)
[2023-11-10] MEDS: Ibuprofen 600 MG TABLET PO (21:01)
[2023-11-10] MEDS: traZODone HCL 50 MG TABLET PO (21:01)
[2023-11-10] MEDS: Benztropine Mesylate 0.5 MG TABLET PO (21:03)
[2023-11-11 08:00] VITALS: BP 117/69; PULSE 76; RESP 16; TEMP 37.2; O2SAT 99
[2023-11-11] MEDS: methADONE HCl 20 MG/2 ML ORAL.CONC 40 MG PO (08:35)
--- NOTE | 2023-11-11 08:57 | P.PNPSI_ITS ---
Subjective Subjective Date of Service: 11/11/23 Reason For Visit: Crisis Subjective Notes: Conditional Voluntary Interim History: Reviewed with . Pt reports feeling anxious today; pt stated, coloring usually helps with my anxiety. I didn't hit myself yesterday which is good. The zyprexa seems to be helping . Continues to report auditory and visual hallucinations. Increased Zyprexa to 15mg PO bedtime Start: clonidine 0.1mg PO daily PRN anxiety Senna 17.2mg PO daily Medication Compliance: Yes Side effects from medications: No Attending Groups: No Review of Systems Constitutional: Reports as per HPI Eyes: Reports as per HPI Reports as per HPI Cardiovascular: Reports as per HPI Respiratory: Reports as per HPI Gastrointestinal: Reports as per HPI Genitourinary: Reports as per HPI Musculoskeletal: Reports as per HPI Skin/Breast: Reports as per HPI Reports as per HPI Psychiatric: Reports as per HPI Endocrine: Reports as per HPI Hematologic/Lymphatic: Reports as per HPI Allergic/Immunologic: Reports as per HPI Mental Status Exam Mental Status Exam Narrative: Pt is alert and oriented; behavior is cooperative; dressed in casual attire; mood is described as okay ; eye contact appropriate; Speech is normal rate, volume and prosody and not pressured; thought process is organized and goal directed; Thought content is on tx; Reports auditory and visual hallucinations. denies SI/HI. Diagnostics Vital Signs (24Hr): Vital Signs - 24 hr 11/10/23 20:30 11/11/23 08:00 Temperature 96.9 F 99.0 F Pulse Rate 77 76 Respiratory Rate 15 16 Blood Pressure 105/66 117/69 Pulse Oximetry 98 99 Oxygen Delivery Method Room Air Room Air BMI result Body Mass Index 18.9 Labs 11/04/23 14:43 11/04/23 14:43 Labs: Laboratory Results - last 48 hr 11/09/23 20:00 Influenza Type A (PCR) NEGATIVE Influenza Type B (PCR) NEGATIVE RSV RNA Qual (PCR) NEGATIVE SARS-CoV-2 RNA (RT-PCR) NEGATIVE Imaging Radiology Impressions: ITS Impressions Chest X-Ray 11/04/23 15:00 IMPRESSION: Unremarkable examination. Medications Medications Current Medications Acetaminophen (Acetaminophen 325 Mg Tablet) 650 mg PO Q6H PRN PRN Reason: Headache/Pain Mild Scale (1-3) Last Admin: 01/31/24 20:09 Dose: 650 mg Al Hydroxide/Mg Hydroxide (Magnesium Hydrox/Alum Hydrox 30 Ml Oral.Susp) 30 ml PO Q6H PRN PRN Reason: Heartburn/Nausea Benztropine Mesylate (Benztropine Mesylate 0.5 Mg Tablet) 0.5 mg PO BEDTIME [facility] Last Admin: 11/10/23 21:03 Dose: 0.5 mg Hydroxyzine HCl (Hydroxyzine Hcl 25 Mg Tablet) 25 mg PO Q6H PRN PRN Reason: Anxiety Last Admin: 11/10/23 16:24 Dose: 25 mg Ibuprofen (Ibuprofen 600 Mg Tablet) 600 mg PO Q8H PRN PRN Reason: Pain, Mild (Pain Scale 1-3) Last Admin: 11/10/23 21:01 Dose: 600 mg Loperamide HCl (Loperamide Hcl 2 Mg Capsule) 4 mg PO Q4H PRN PRN Reason: Diarrhea Last Admin: 11/08/23 14:31 Dose: 4 mg Magnesium Hydroxide (Milk Of Magnesia 30 Ml Oral.Susp) 30 ml PO DAILY PRN PRN Reason: Constipation Methadone HCl (Methadone Hcl 20 Mg/2 Ml Oral.Conc) 40 mg PO DAILY [facility] Last Admin: 11/11/23 08:35 Dose: 40 mg Nicotine Polacrilex (Nicotine Polacrilex 2 Mg Gum) 4 mg BUCCAL Q2H PRN PRN Reason: Nicotine Cravings Last Admin: 11/08/23 08:56 Dose: 4 mg Olanzapine (Olanzapine 10 Mg Tablet) 10 mg PO BEDTIME [facility] Last Admin: 11/10/23 21:01 Dose: 10 mg Trazodone HCl (Trazodone Hcl 50 Mg Tablet) 50 mg PO BEDTIME MRX1 PRN PRN Reason: Insomnia Last Admin: 11/10/23 21:01 Dose: 50 mg Allergies Allergies Allergy/AdvReac Type Severity Reaction Status Date / Time No Known Allergies Allergy Verified 11/04/23 13:50 Assessment & Plan Assessment & Plan (1) Schizophrenia: Status: Acute Code(s): F20.9 - Schizophrenia, unspecified (2) Cocaine use disorder, moderate, dependence: Status: Acute Code(s): F14.20 - Cocaine dependence, uncomplicated (3) Opioid use disorder, moderate, dependence: Status: Acute Code(s): F11.20 - Opioid dependence, uncomplicated Plan Ms. Sow is a 43 year-old woman who self presented to [facility] reporting increase depression and SI. She also presents with complex system of delusions including paranoid and somatic delusions. It appears she has been mostly untreated. She also presents with substance use disorder. she was started on methadone. We discussed risks, benefits and alternative treatment options, pt agreed to start risperidone. PLAN 1. Admit to M3, cv 15 minutes checks 2. start risperidone 1mg po BID 3. aftercare planning 4. obtain collateral information 11/09: Keeping to self. Not attending groups. Pt reports she did not take the risperidal this morning because she does not like the way it made her feel; pt was unable to elaborate on this. Discussed zyprexa;risks/benefits, pt agreed to trial medication. She also requested to start hydroxyzine d/t helping with her anxiety. Pt stated, I get overwhelmed with boredom. I just want to punch myself sometimes. I feel like someone is inside me . Pt reports auditory and visual hallucinations; pt stated, the voices make fun of me and I see shadows . Pt reports she would like to go to a substance abuse program when discharged from hospital. DC Risperidal DC Seroquel Start: Zyprexa 10mg PO bedtime Cogentin 0.5mg PO bedtime Hydroxyzine 25mg PO Q6HR PRN anxiety 11/10: Pt reports feeling okay today;pt stated, I have anxiety on and off. I wacked myself in the face yesterday. I don't want to hit myself, sometimes I get overwhelmed. I love myself. I no longer feel like anyone is trying to rape me but the voices keep telling me that someone is trying to kill and rape me and my family . Pt reports visual hallucinations of shadow people . pt denies any side effects from Zyprexa. denies SI/HI. Continue current tx plan. 11/11: Pt reports feeling anxious today; pt stated, coloring usually helps with my anxiety. I didn't hit myself yesterday which is good. The zyprexa seems to be helping . Continues to report auditory and visual hallucinations. Increased Zyprexa to 15mg PO bedtime Start: clonidine 0.1mg PO daily PRN anxiety Senna 17.2mg PO daily Patient educated on: diagnosis, medication risk/benefits and therapeutic strategies Informed Consent: understands Reason for continued inpatient stay Substantial Risk for: med/psych decompensation Time Spent With Patient Time: Total time managing care of this patient today _20___ minutes.
[2023-11-11 13:43] VITALS: BP 102/59; PULSE 80; RESP 16; TEMP 36.5; O2SAT 99
[2023-11-11] MEDS: Sennosides 8.6 MG TABLET 17.2 MG PO (13:56)
[2023-11-11] MEDS: cloNIDine HCL 0.1 MG TABLET PO (13:57)
[2023-11-11 17:58] LABS: Appearance Urine Clear; Bacteria Urine 4+ (None Seen); Color Urine Yellow; Glucose Urine UA Negative (Negative); Hyaline Casts Urine 0-2 /LPF (0-2); Leukocyte Esterase Urine Negative (Negative); Nitrite Urine Positive (Negative); Specific Gravity - Urine 1.015 (1.005-1.025); UACC Culture Trigger YES; UMIC TRIGGER UACC YES; Urine Blood Negative (Negative); Urine Ketones Negative (Negative); Urine Protein Negative (Neg-Trace); WBC Urine 21-50 /HPF (0-5)
[2023-11-11 18:00] VITALS: BP 104/62; PULSE 85; RESP 18; TEMP 36.9; O2SAT 98
[2023-11-11] MEDS: Benztropine Mesylate 0.5 MG TABLET PO (20:56)
[2023-11-11] MEDS: OLANZapine 7.5 MG TABLET 15 MG PO (20:56)
[2023-11-11] MEDS: traZODone HCL 50 MG TABLET PO (21:22)
[2023-11-12 07:15] VITALS: BP 111/55; PULSE 80; RESP 16; TEMP 36.8; O2SAT 97
[2023-11-12] MEDS: Sennosides 8.6 MG TABLET 17.2 MG PO (08:18)
[2023-11-12] MEDS: methADONE HCl 20 MG/2 ML ORAL.CONC 40 MG PO (08:20)
[2023-11-12 14:44] VITALS: BP 104/62; PULSE 83; RESP 16; TEMP 36.8; O2SAT 98
[2023-11-12] MEDS: cloNIDine HCL 0.1 MG TABLET PO (14:46)
[2023-11-12 20:15] VITALS: BP 108/61; PULSE 86; RESP 16; TEMP 36.9; O2SAT 100
[2023-11-12] MEDS: traZODone HCL 50 MG TABLET PO (20:48)
[2023-11-12] MEDS: Benztropine Mesylate 0.5 MG TABLET PO (20:48)
[2023-11-12] MEDS: OLANZapine 7.5 MG TABLET 15 MG PO (20:49)
--- NOTE | 2023-11-12 21:19 | P.PNPSI_ITS ---
Subjective Subjective Date of Service: 11/12/23 Reason For Visit: Crisis Interim History: states she is here for dual diagnosis, then explains the meaning of the term. concerned about a sensation of fire in her belly and into her throat. would like to have hydroxyzine DCed as she does not find it helpful. no c/o UTI Sx. per staff, dep 8 anx 7. taking meds. UA reported to be nitrite +. feels new clonidine orders are helpful. Mental Status Exam Mental Status Exam Narrative: Pt is alert and oriented; behavior is cooperative; dressed in casual attire; mood is described as okay ; eye contact appropriate; Speech is normal rate, volume and prosody and not pressured; thought process is tangential and paranoid; Thought content is on tx; Reports auditory and visual hallucinations. denies SI/HI. Diagnostics Vital Signs (24Hr): Vital Signs - 24 hr 11/12/23 07:15 11/12/23 14:44 Temperature 98.2 F 98.2 F Pulse Rate 80 83 Respiratory Rate 16 16 Blood Pressure 111/55 L 104/62 Pulse Oximetry 97 98 Oxygen Delivery Method Room Air Room Air BMI result Body Mass Index 18.9 Labs 11/04/23 14:43 11/04/23 14:43 Labs: Laboratory Results - last 48 hr 11/11/23 11/11/23 11/11/23 16:50 16:50 16:50 Urine Color Yellow Cancelled Urine Appearance Clear Cancelled Urine pH 6.0 Ur Specific [place] Urine Protein Urine Glucose (UA) Urine Ketones Urine Blood Urine Nitrite Ur Leukocyte Esterase Urine RBC Urine WBC Urine WBC Clumps Ur Squamous Epith Cells Ur Transition Epith Cell Ur Renal Epithelial Cell Calcium Oxalate Crystal Leucine Crystals Cystine Crystals Tyrosine Crystals Other Crystals Urine Bacteria Urine Parasites Bilirubin Casts Epithelial Casts Fatty Casts Hyaline Casts Granular Casts Waxy Casts Broad Casts RBC Casts WBC Casts Other Casts Urine Trichomonas Urine Yeast 11/11/23 11/11/23 11/11/23 16:50 16:50 16:50 Urine Color Urine Appearance Urine pH Cancelled Ur Specific [place] 1.015 Cancelled Urine Protein Negative Cancelled Urine Glucose (UA) Negative Urine Ketones Urine Blood Urine Nitrite Ur Leukocyte Esterase Urine RBC Urine WBC Urine WBC Clumps Ur Squamous Epith Cells Ur Transition Epith Cell Ur Renal Epithelial Cell Calcium Oxalate Crystal Leucine Crystals Cystine Crystals Tyrosine Crystals Other Crystals Urine Bacteria Urine Parasites Bilirubin Casts Epithelial Casts Fatty Casts Hyaline Casts Granular Casts Waxy Casts Broad Casts RBC Casts WBC Casts Other Casts Urine Trichomonas Urine Yeast 11/11/23 11/11/23 11/11/23 16:50 16:50 16:50 Urine Color Urine Appearance Urine pH Ur Specific [place] Urine Protein Urine Glucose (UA) Cancelled Urine Ketones Negative Cancelled Urine Blood Negative Cancelled Urine Nitrite Positive H Ur Leukocyte Esterase Urine RBC Urine WBC Urine WBC Clumps Ur Squamous Epith Cells Ur Transition Epith Cell Ur Renal Epithelial Cell Calcium Oxalate Crystal Leucine Crystals Cystine Crystals Tyrosine Crystals Other Crystals Urine Bacteria Urine Parasites Bilirubin Casts Epithelial Casts Fatty Casts Hyaline Casts Granular Casts Waxy Casts Broad Casts RBC Casts WBC Casts Other Casts Urine Trichomonas Urine Yeast 11/11/23 11/11/23 11/11/23 16:50 16:50 16:50 Urine Color Urine Appearance Urine pH Ur Specific [place] Urine Protein Urine Glucose (UA) Urine Ketones Urine Blood Urine Nitrite Cancelled Ur Leukocyte Esterase Negative Cancelled Urine RBC 3-5 H Cancelled Urine WBC 21-50 H Urine WBC Clumps Ur Squamous Epith Cells Ur Transition Epith Cell Ur Renal Epithelial Cell Calcium Oxalate Crystal Leucine Crystals Cystine Crystals Tyrosine Crystals Other Crystals Urine Bacteria Urine Parasites Bilirubin Casts Epithelial Casts Fatty Casts Hyaline Casts Granular Casts Waxy Casts Broad Casts RBC Casts WBC Casts Other Casts Urine Trichomonas Urine Yeast 11/11/23 11/11/23 11/11/23 16:50 16:50 16:50 Urine Color Urine Appearance Urine pH Ur Specific [place] Urine Protein Urine Glucose (UA) Urine Ketones Urine Blood Urine Nitrite Ur Leukocyte Esterase Urine RBC Urine WBC Cancelled Urine WBC Clumps Cancelled Ur Squamous Epith Cells 6-10 Cancelled Ur Transition Epith Cell Cancelled Ur Renal Epithelial Cell Cancelled Calcium Oxalate Crystal Cancelled Leucine Crystals Cancelled Cystine Crystals Cancelled Tyrosine Crystals Cancelled Other Crystals Cancelled Urine Bacteria 4+ Cancelled Urine Parasites Cancelled Bilirubin Casts Cancelled Epithelial Casts Cancelled Fatty Casts Cancelled Hyaline Casts 0-2 Granular Casts Waxy Casts Broad Casts RBC Casts WBC Casts Other Casts Urine Trichomonas Urine Yeast 11/11/23 11/11/23 16:50 16:50 Urine Color Urine Appearance Urine pH Ur Specific [place] Urine Protein Urine Glucose (UA) Urine Ketones Urine Blood Urine Nitrite Ur Leukocyte Esterase Urine RBC Urine WBC Urine WBC Clumps Ur Squamous Epith Cells Ur Transition Epith Cell Ur Renal Epithelial Cell Calcium Oxalate Crystal Leucine Crystals Cystine Crystals Tyrosine Crystals Other Crystals Urine Bacteria Urine Parasites Bilirubin Casts Epithelial Casts Fatty Casts Hyaline Casts Cancelled Granular Casts Cancelled Waxy Casts Cancelled Broad Casts Cancelled RBC Casts Cancelled WBC Casts Cancelled Other Casts Cancelled Urine Trichomonas Cancelled Urine Yeast Present Cancelled Imaging Radiology Impressions: ITS Impressions Chest X-Ray 11/04/23 15:00 IMPRESSION: Unremarkable examination. Medications Medications Current Medications Acetaminophen (Acetaminophen 325 Mg Tablet) 650 mg PO Q6H PRN PRN Reason: Headache/Pain Mild Scale (1-3) Last Admin: 11/09/23 20:09 Dose: 650 mg Al Hydroxide/Mg Hydroxide (Magnesium Hydrox/Alum Hydrox 30 Ml Oral.Susp) 30 ml PO Q6H PRN PRN Reason: Heartburn/Nausea Benztropine Mesylate (Benztropine Mesylate 0.5 Mg Tablet) 0.5 mg PO BEDTIME [facility] Last Admin: 11/12/23 20:48 Dose: 0.5 mg Clonidine HCl (Clonidine Hcl 0.1 Mg Tablet) 0.1 mg PO DAILY PRN; Protocol PRN Reason: Anxiety Last Admin: 11/12/23 14:46 Dose: 0.1 mg Ibuprofen (Ibuprofen 600 Mg Tablet) 600 mg PO Q8H PRN PRN Reason: Pain, Mild (Pain Scale 1-3) Last Admin: 11/10/23 21:01 Dose: 600 mg Loperamide HCl (Loperamide Hcl 2 Mg Capsule) 4 mg PO Q4H PRN PRN Reason: Diarrhea Last Admin: 11/08/23 14:31 Dose: 4 mg Magnesium Hydroxide (Milk Of Magnesia 30 Ml Oral.Susp) 30 ml PO DAILY PRN PRN Reason: Constipation Methadone HCl (Methadone Hcl 20 Mg/2 Ml Oral.Conc) 40 mg PO DAILY [facility] Last Admin: 11/12/23 08:20 Dose: 40 mg Nicotine Polacrilex (Nicotine Polacrilex 2 Mg Gum) 4 mg BUCCAL Q2H PRN PRN Reason: Nicotine Cravings Last Admin: 11/08/23 08:56 Dose: 4 mg Olanzapine (Olanzapine 7.5 Mg Tablet) 15 mg PO BEDTIME [facility] Last Admin: 11/12/23 20:49 Dose: 15 mg Senna (Sennosides 8.6 Mg Tablet) 17.2 mg PO DAILY [facility] Last Admin: 11/12/23 08:18 Dose: 17.2 mg Trazodone HCl (Trazodone Hcl 50 Mg Tablet) 50 mg PO BEDTIME MRX1 PRN PRN Reason: Insomnia Last Admin: 11/12/23 20:48 Dose: 50 mg Allergies Allergies Allergy/AdvReac Type Severity Reaction Status Date / Time No Known Allergies Allergy Verified 11/04/23 13:50 Assessment & Plan Assessment & Plan (1) Schizophrenia: Status: Acute Code(s): F20.9 - Schizophrenia, unspecified (2) Cocaine use disorder, moderate, dependence: Status: Acute Code(s): F14.20 - Cocaine dependence, uncomplicated (3) Opioid use disorder, moderate, dependence: Status: Acute Code(s): F11.20 - Opioid dependence, uncomplicated Plan Ms. Sow is a 43 year-old woman who self presented to [facility] ED reporting increase depression and SI. She also presents with complex system of delusions including paranoid and somatic delusions. It appears she has been mostly untreated. She also presents with substance use disorder. she was started on methadone. We discussed risks, benefits and alternative treatment options, pt agreed to start risperidone. PLAN 1. Admit to M3, cv 15 minutes checks 2. start risperidone 1mg po BID 3. aftercare planning 4. obtain collateral information 11/09: Keeping to self. Not attending groups. Pt reports she did not take the risperidal this morning because she does not like the way it made her feel; pt was unable to elaborate on this. Discussed zyprexa;risks/benefits, pt agreed to trial medication. She also requested to start hydroxyzine d/t helping with her anxiety. Pt stated, I get overwhelmed with boredom. I just want to punch myself sometimes. I feel like someone is inside me . Pt reports auditory and visual hallucinations; pt stated, the voices make fun of me and I see shadows . Pt reports she would like to go to a substance abuse program when discharged from hospital. DC Risperidal DC Seroquel Start: Zyprexa 10mg PO bedtime Cogentin 0.5mg PO bedtime Hydroxyzine 25mg PO Q6HR PRN anxiety 11/10: Pt reports feeling okay today;pt stated, I have anxiety on and off. I wacked myself in the face yesterday. I don't want to hit myself, sometimes I get overwhelmed. I love myself. I no longer feel like anyone is trying to rape me but the voices keep telling me that someone is trying to kill and rape me and my family . Pt reports visual hallucinations of shadow people . pt denies any side effects from Zyprexa. denies SI/HI. Continue current tx plan. 11/11: Pt reports feeling anxious today; pt stated, coloring usually helps with my anxiety. I didn't hit myself yesterday which is good. The zyprexa seems to be helping . Continues to report auditory and visual hallucinations. Increased Zyprexa to 15mg PO bedtime Start: clonidine 0.1mg PO daily PRN anxiety Senna 17.2mg PO daily 2/3: DC hydroxyzine per pt request, otherwise continue current mgmt. Reason for continued inpatient stay Substantial Risk for: inability to function and rapid decompensation Time Spent With Patient Time: Total time managing care of this patient today ____ minutes.
[2023-11-12] MEDS: Sulfamethox/Trimeth 800/160 TABLET 1 TAB PO (22:06)
[2023-11-13 06:00] VITALS: BP 112/54; PULSE 81; RESP 18; TEMP 36.7; O2SAT 99
[2023-11-13] MEDS: Sennosides 8.6 MG TABLET 17.2 MG PO (08:35)
[2023-11-13] MEDS: methADONE HCl 20 MG/2 ML ORAL.CONC 40 MG PO (08:37)
[2023-11-13] MEDS: Sulfamethox/Trimeth 800/160 TABLET 1 TAB PO ×2 (09:27→20:52)
[2023-11-13 17:10] VITALS: BP 119/67; PULSE 94; RESP 16; TEMP 37.6; O2SAT 97
[2023-11-13] MEDS: Acetaminophen 325 MG TABLET 650 MG PO (17:14)
[2023-11-13] MEDS: cloNIDine HCL 0.1 MG TABLET PO (17:14)
[2023-11-13 18:03] VITALS: TEMP 37.4
--- NOTE | 2023-11-13 18:24 | HO.PSYCHPN ---
Subjective Subjective Date of Service: 11/13/23 Reason For Visit: Crisis Interim History: feels 40 mg methadone is adequate, when she was on 24 mg suboxone daily it was inadequate. she wishes to remain on methadone once it is explained that max methadone dosing is only equivalent to about 30 mg methadone. reporting AH saying, you're not believable. seeing [place] on the floor. AH saying she is not going to see her again. per staff, liked clonidine last NOC.started on antibx. sedated in the morning. Mental Status Exam Mental Status Exam Narrative: Pt is alert and oriented; behavior is cooperative; dressed in casual attire; mood is described as okay ; eye contact appropriate; Speech is normal rate, volume and prosody and not pressured; thought process is tangential and paranoid; Thought content is on tx; Reports auditory and visual hallucinations. no SI/HI expressed. Diagnostics Vital Signs (24Hr): Vital Signs - 24 hr 11/12/23 20:15 11/13/23 06:00 11/13/23 17:10 Temperature 98.4 F 98.1 F 99.7 F Pulse Rate 86 81 94 Respiratory Rate 16 18 16 Blood Pressure 108/61 112/54 L 119/67 Pulse Oximetry 100 99 97 Oxygen Delivery Method Room Air Room Air Room Air 11/13/23 18:03 Temperature 99.4 F Pulse Rate Respiratory Rate Blood Pressure Pulse Oximetry Oxygen Delivery Method BMI result Body Mass Index 18.9 Labs 11/04/23 14:43 11/04/23 14:43 Imaging Radiology Impressions: ITS Impressions Chest X-Ray 11/04/23 15:00 IMPRESSION: Unremarkable examination. Medications Medications Current Medications Acetaminophen (Acetaminophen 325 Mg Tablet) 650 mg PO Q6H PRN PRN Reason: Headache/Pain Mild Scale (1-3) Last Admin: 11/13/23 17:14 Dose: 650 mg Al Hydroxide/Mg Hydroxide (Magnesium Hydrox/Alum Hydrox 30 Ml Oral.Susp) 30 ml PO Q6H PRN PRN Reason: Heartburn/Nausea Benztropine Mesylate (Benztropine Mesylate 0.5 Mg Tablet) 0.5 mg PO BEDTIME [facility] Last Admin: 11/12/23 20:48 Dose: 0.5 mg Clonidine HCl (Clonidine Hcl 0.1 Mg Tablet) 0.1 mg PO DAILY PRN; Protocol PRN Reason: Anxiety Last Admin: 11/13/23 17:14 Dose: 0.1 mg Ibuprofen (Ibuprofen 600 Mg Tablet) 600 mg PO Q8H PRN PRN Reason: Pain, Mild (Pain Scale 1-3) Last Admin: 11/10/23 21:01 Dose: 600 mg Loperamide HCl (Loperamide Hcl 2 Mg Capsule) 4 mg PO Q4H PRN PRN Reason: Diarrhea Last Admin: 11/08/23 14:31 Dose: 4 mg Magnesium Hydroxide (Milk Of Magnesia 30 Ml Oral.Susp) 30 ml PO DAILY PRN PRN Reason: Constipation Methadone HCl (Methadone Hcl 20 Mg/2 Ml Oral.Conc) 40 mg PO DAILY [facility] Last Admin: 11/13/23 08:37 Dose: 40 mg Nicotine Polacrilex (Nicotine Polacrilex 2 Mg Gum) 4 mg BUCCAL Q2H PRN PRN Reason: Nicotine Cravings Last Admin: 11/08/23 08:56 Dose: 4 mg Olanzapine (Olanzapine 7.5 Mg Tablet) 15 mg PO BEDTIME [facility] Last Admin: 11/12/23 20:49 Dose: 15 mg Quetiapine Fumarate (Quetiapine Fumarate 50 Mg Tablet) 50 mg PO BEDTIME [facility] Senna (Sennosides 8.6 Mg Tablet) 17.2 mg PO DAILY [facility] Last Admin: 11/13/23 08:35 Dose: 17.2 mg Trazodone HCl (Trazodone Hcl 50 Mg Tablet) 50 mg PO BEDTIME MRX1 PRN PRN Reason: Insomnia Last Admin: 11/12/23 20:48 Dose: 50 mg Trimethoprim/Sulfamethoxazole (Sulfamethox/Trimeth 800/160 Tablet) 1 tab PO Q12H [facility] Stop: 11/15/23 10:01 Last Admin: 11/13/23 09:27 Dose: 1 tab Allergies Allergies Allergy/AdvReac Type Severity Reaction Status Date / Time No Known Allergies Allergy Verified 11/04/23 13:50 Assessment & Plan Assessment & Plan (1) Schizophrenia: Status: Acute Code(s): F20.9 - Schizophrenia, unspecified (2) Cocaine use disorder, moderate, dependence: Status: Acute Code(s): F14.20 - Cocaine dependence, uncomplicated (3) Opioid use disorder, moderate, dependence: Status: Acute Code(s): F11.20 - Opioid dependence, uncomplicated Plan Ms. Sow is a 43 year-old woman who self presented to [facility] ED reporting increase depression and SI. She also presents with complex system of delusions including paranoid and somatic delusions. It appears she has been mostly untreated. She also presents with substance use disorder. she was started on methadone. We discussed risks, benefits and alternative treatment options, pt agreed to start risperidone. PLAN 1. Admit to M3, cv 15 minutes checks 2. start risperidone 1mg po BID 3. aftercare planning 4. obtain collateral information 11/09: Keeping to self. Not attending groups. Pt reports she did not take the risperidal this morning because she does not like the way it made her feel; pt was unable to elaborate on this. Discussed zyprexa;risks/benefits, pt agreed to trial medication. She also requested to start hydroxyzine d/t helping with her anxiety. Pt stated, I get overwhelmed with boredom. I just want to punch myself sometimes. I feel like someone is inside me . Pt reports auditory and visual hallucinations; pt stated, the voices make fun of me and I see shadows . Pt reports she would like to go to a substance abuse program when discharged from hospital. DC Risperidal DC Seroquel Start: Zyprexa 10mg PO bedtime Cogentin 0.5mg PO bedtime Hydroxyzine 25mg PO Q6HR PRN anxiety 11/10: Pt reports feeling okay today;pt stated, I have anxiety on and off. I wacked myself in the face yesterday. I don't want to hit myself, sometimes I get overwhelmed. I love myself. I no longer feel like anyone is trying to rape me but the voices keep telling me that someone is trying to kill and rape me and my family . Pt reports visual hallucinations of shadow people . pt denies any side effects from Zyprexa. denies SI/HI. Continue current tx plan. 11/11: Pt reports feeling anxious today; pt stated, coloring usually helps with my anxiety. I didn't hit myself yesterday which is good. The zyprexa seems to be helping . Continues to report auditory and visual hallucinations. Increased Zyprexa to 15mg PO bedtime Start: clonidine 0.1mg PO daily PRN anxiety Senna 17.2mg PO daily 2/3: DC hydroxyzine per pt request, otherwise continue current mgmt. 2/4: continue current mgmt. c/o [facility]. Reason for continued inpatient stay Substantial Risk for: inability to function and rapid decompensation Time Spent With Patient Time: Total time managing care of this patient today ____ minutes.
[2023-11-13] MEDS: OLANZapine 7.5 MG TABLET 15 MG PO (20:52)
[2023-11-13] MEDS: QUEtiapine Fumarate 50 MG TABLET PO (20:52)
[2023-11-13] MEDS: Benztropine Mesylate 0.5 MG TABLET PO (20:52)
[2023-11-13] MEDS: traZODone HCL 50 MG TABLET PO (20:53)
[2023-11-14 07:50] VITALS: BP 107/61; PULSE 89; RESP 16; TEMP 36.5; O2SAT 99
[2023-11-14] MEDS: methADONE HCl 20 MG/2 ML ORAL.CONC 40 MG PO (09:06)
[2023-11-14] MEDS: Sulfamethox/Trimeth 800/160 TABLET 1 TAB PO ×2 (09:06→21:02)
[2023-11-14] MEDS: Sennosides 8.6 MG TABLET 17.2 MG PO (09:06)
--- NOTE | 2023-11-14 09:14 | P.PNPSI_ITS ---
Subjective Subjective Date of Service: 11/14/23 Reason For Visit: Crisis Subjective Notes: Conditional Voluntary Interim History: Reviewed with . Pt reports feeling mad today because I miss my kids. I have eleven. They're adopted. I've never been . Pt reports ongoing auditory and visual hallucinations. denies SI/HI. Discussed medications; pt reports she would be open to trying new medications such as a mood stabilizer. Pt reports she does not want to take Risperidal again because it gave me sleep paralysis . Will discuss possibility of HECK. Medication Compliance: Yes Side effects from medications: No Attending Groups: Yes Review of Systems Constitutional: Reports as per HPI Eyes: Reports as per HPI Reports as per HPI Cardiovascular: Reports as per HPI Respiratory: Reports as per HPI Gastrointestinal: Reports as per HPI Genitourinary: Reports as per HPI Musculoskeletal: Reports as per HPI Skin/Breast: Reports as per HPI Reports as per HPI Psychiatric: Reports as per HPI Endocrine: Reports as per HPI Hematologic/Lymphatic: Reports as per HPI Allergic/Immunologic: Reports as per HPI Mental Status Exam Mental Status Exam Narrative: Pt is alert and oriented; behavior is cooperative; dressed in casual attire; mood is described as okay ; eye contact appropriate; Speech is normal rate, volume and prosody and not pressured; thought process is tangential at times; Thought content is on tx; Reports auditory and visual hallucinations. denies SI/HI. Diagnostics Vital Signs (24Hr): Vital Signs - 24 hr 11/13/23 17:10 11/13/23 18:03 11/14/23 07:50 Temperature 99.7 F 99.4 F 97.7 F Pulse Rate 94 89 Respiratory Rate 16 16 Blood Pressure 119/67 107/61 Pulse Oximetry 97 99 Oxygen Delivery Method Room Air Room Air BMI result Body Mass Index 18.9 Labs 11/04/23 14:43 11/04/23 14:43 Imaging Radiology Impressions: ITS Impressions Chest X-Ray 11/04/23 15:00 IMPRESSION: Unremarkable examination. Medications Medications Current Medications Acetaminophen (Acetaminophen 325 Mg Tablet) 650 mg PO Q6H PRN PRN Reason: Headache/Pain Mild Scale (1-3) Last Admin: 11/13/23 17:14 Dose: 650 mg Al Hydroxide/Mg Hydroxide (Magnesium Hydrox/Alum Hydrox 30 Ml Oral.Susp) 30 ml PO Q6H PRN PRN Reason: Heartburn/Nausea Benztropine Mesylate (Benztropine Mesylate 0.5 Mg Tablet) 0.5 mg PO BEDTIME [facility] Last Admin: 11/13/23 20:52 Dose: 0.5 mg Clonidine HCl (Clonidine Hcl 0.1 Mg Tablet) 0.1 mg PO DAILY PRN; Protocol PRN Reason: Anxiety Last Admin: 11/13/23 17:14 Dose: 0.1 mg Ibuprofen (Ibuprofen 600 Mg Tablet) 600 mg PO Q8H PRN PRN Reason: Pain, Mild (Pain Scale 1-3) Last Admin: 11/10/23 21:01 Dose: 600 mg Loperamide HCl (Loperamide Hcl 2 Mg Capsule) 4 mg PO Q4H PRN PRN Reason: Diarrhea Last Admin: 11/08/23 14:31 Dose: 4 mg Magnesium Hydroxide (Milk Of Magnesia 30 Ml Oral.Susp) 30 ml PO DAILY PRN PRN Reason: Constipation Methadone HCl (Methadone Hcl 20 Mg/2 Ml Oral.Conc) 40 mg PO DAILY [facility] Last Admin: 11/14/23 09:06 Dose: 40 mg Nicotine Polacrilex (Nicotine Polacrilex 2 Mg Gum) 4 mg BUCCAL Q2H PRN PRN Reason: Nicotine Cravings Last Admin: 11/08/23 08:56 Dose: 4 mg Olanzapine (Olanzapine 7.5 Mg Tablet) 15 mg PO BEDTIME [facility] Last Admin: 11/13/23 20:52 Dose: 15 mg Quetiapine Fumarate (Quetiapine Fumarate 50 Mg Tablet) 50 mg PO BEDTIME [facility] Last Admin: 11/13/23 20:52 Dose: 50 mg Senna (Sennosides 8.6 Mg Tablet) 17.2 mg PO DAILY [facility] Last Admin: 11/14/23 09:06 Dose: 17.2 mg Trazodone HCl (Trazodone Hcl 50 Mg Tablet) 50 mg PO BEDTIME MRX1 PRN PRN Reason: Insomnia Last Admin: 11/13/23 20:53 Dose: 50 mg Trimethoprim/Sulfamethoxazole (Sulfamethox/Trimeth 800/160 Tablet) 1 tab PO Q12H [facility] Stop: 11/15/23 10:01 Last Admin: 11/14/23 09:06 Dose: 1 tab Allergies Allergies Allergy/AdvReac Type Severity Reaction Status Date / Time No Known Allergies Allergy Verified 01/26/24 13:50 Assessment & Plan Assessment & Plan (1) Schizophrenia: Status: Acute Code(s): F20.9 - Schizophrenia, unspecified (2) Cocaine use disorder, moderate, dependence: Status: Acute Code(s): F14.20 - Cocaine dependence, uncomplicated (3) Opioid use disorder, moderate, dependence: Status: Acute Code(s): F11.20 - Opioid dependence, uncomplicated Plan Ms. Sow is a 43 year-old woman who self presented to [facility] ED reporting increase depression and SI. She also presents with complex system of delusions including paranoid and somatic delusions. It appears she has been mostly untreated. She also presents with substance use disorder. she was started on methadone. We discussed risks, benefits and alternative treatment options, pt agreed to start risperidone. PLAN 1. Admit to M3, cv 15 minutes checks 2. start risperidone 1mg po BID 3. aftercare planning 4. obtain collateral information 11/09: Keeping to self. Not attending groups. Pt reports she did not take the risperidal this morning because she does not like the way it made her feel; pt was unable to elaborate on this. Discussed zyprexa;risks/benefits, pt agreed to trial medication. She also requested to start hydroxyzine d/t helping with her anxiety. Pt stated, I get overwhelmed with boredom. I just want to punch myself sometimes. I feel like someone is inside me . Pt reports auditory and visual hallucinations; pt stated, the voices make fun of me and I see shadows . Pt reports she would like to go to a substance abuse program when discharged from hospital. DC Risperidal DC Seroquel Start: Zyprexa 10mg PO bedtime Cogentin 0.5mg PO bedtime Hydroxyzine 25mg PO Q6HR PRN anxiety 11/10: Pt reports feeling okay today;pt stated, I have anxiety on and off. I wacked myself in the face yesterday. I don't want to hit myself, sometimes I get overwhelmed. I love myself. I no longer feel like anyone is trying to rape me but the voices keep telling me that someone is trying to kill and rape me and my family . Pt reports visual hallucinations of shadow people . pt denies any side effects from Zyprexa. denies SI/HI. Continue current tx plan. 11/11: Pt reports feeling anxious today; pt stated, coloring usually helps with my anxiety. I didn't hit myself yesterday which is good. The zyprexa seems to be helping . Continues to report auditory and visual hallucinations. Increased Zyprexa to 15mg PO bedtime Start: clonidine 0.1mg PO daily PRN anxiety Senna 17.2mg PO daily 11/12: DC hydroxyzine per pt request, otherwise continue current mgmt. 11/13: continue current mgmt. c/o [facility]. 11/14: Pt reports feeling mad today because I miss my kids. I have eleven. They're adopted. I've never been . Pt reports ongoing auditory and visual hallucinations. denies SI/HI. Discussed medications; pt reports she would be open to trying new medications such as a mood stabilizer. Pt reports she does not want to take Risperidal again because it gave me sleep paralysis . Will discuss possibility of HECK. Patient educated on: diagnosis and medication risk/benefits Informed Consent: understands Reason for continued inpatient stay Substantial Risk for: med/psych decompensation Time Spent With Patient Time: Total time managing care of this patient today _30___ minutes.
[2023-11-14 18:00] VITALS: BP 110/55; PULSE 91; RESP 16; TEMP 36.6; O2SAT 98
[2023-11-14] MEDS: cloNIDine HCL 0.1 MG TABLET PO (18:39)
[2023-11-14] MEDS: Benztropine Mesylate 0.5 MG TABLET PO (21:02)
[2023-11-14] MEDS: QUEtiapine Fumarate 50 MG TABLET PO (21:02)
[2023-11-14] MEDS: OLANZapine 7.5 MG TABLET 15 MG PO (21:02)
[2023-11-14] MEDS: traZODone HCL 50 MG TABLET PO (21:02)
[2023-11-14] MEDS: Ibuprofen 600 MG TABLET PO (21:07)
[2023-11-14] MEDS: Acetaminophen 325 MG TABLET 650 MG PO (21:07)
[2023-11-15 07:05] VITALS: BP 111/58; PULSE 73; RESP 14; TEMP 36.7; O2SAT 100
[2023-11-15] MEDS: Sennosides 8.6 MG TABLET 17.2 MG PO (08:20)
[2023-11-15] MEDS: methADONE HCl 20 MG/2 ML ORAL.CONC 40 MG PO (08:21)
--- NOTE | 2023-11-15 08:59 | P.PNPSI_ITS ---
Subjective Subjective Date of Service: 11/15/23 Reason For Visit: Crisis Subjective Notes: Conditional Voluntary Interim History: Reviewed with . Pt reports feeling okay today; pt stated, I'm eating and gaining weight. it makes me happy . Pt reports ongoing auditory and visual hallucinations. denies SI/HI. T/W discussed risks/benefits of HECK; pt reports she would rather get an injection than take pills everyday . Pt stated, I know I'm schizophrenic. I think using substances really effected my mental health. I'm done with using . DC Zyprexa. Start: Abilify 5mg PO bedtime Medication Compliance: Yes Side effects from medications: No Attending Groups: Intermittent Review of Systems Constitutional: Reports as per HPI Eyes: Reports as per HPI Reports as per HPI Cardiovascular: Reports as per HPI Respiratory: Reports as per HPI Gastrointestinal: Reports as per HPI Musculoskeletal: Reports as per HPI Skin/Breast: Reports as per HPI Reports as per HPI Psychiatric: Reports as per HPI Endocrine: Reports as per HPI Hematologic/Lymphatic: Reports as per HPI Allergic/Immunologic: Reports as per HPI Mental Status Exam Mental Status Exam Narrative: Pt is alert and oriented; behavior is cooperative; dressed in casual attire; mood is described as okay ; eye contact appropriate; Speech is normal rate, volume and prosody and not pressured; thought process is tangential at times; Thought content is on tx; Reports auditory and visual hallucinations. denies SI/HI. Diagnostics Vital Signs (24Hr): Vital Signs - 24 hr 11/14/23 18:00 11/15/23 07:05 Temperature 97.8 F 98.1 F Pulse Rate 91 73 Respiratory Rate 16 14 Blood Pressure 110/55 L 111/58 L Pulse Oximetry 98 100 Oxygen Delivery Method Room Air Room Air BMI result Body Mass Index 18.9 Labs 11/04/23 14:43 11/04/23 14:43 Imaging Radiology Impressions: ITS Impressions Chest X-Ray 11/04/23 15:00 IMPRESSION: Unremarkable examination. Medications Medications Current Medications Acetaminophen (Acetaminophen 325 Mg Tablet) 650 mg PO Q6H PRN PRN Reason: Headache/Pain Mild Scale (1-3) Last Admin: 11/14/23 21:07 Dose: 650 mg Al Hydroxide/Mg Hydroxide (Magnesium Hydrox/Alum Hydrox 30 Ml Oral.Susp) 30 ml PO Q6H PRN PRN Reason: Heartburn/Nausea Benztropine Mesylate (Benztropine Mesylate 0.5 Mg Tablet) 0.5 mg PO BEDTIME [facility] Last Admin: 11/14/23 21:02 Dose: 0.5 mg Clonidine HCl (Clonidine Hcl 0.1 Mg Tablet) 0.1 mg PO DAILY PRN; Protocol PRN Reason: Anxiety Last Admin: 11/14/23 18:39 Dose: 0.1 mg Ibuprofen (Ibuprofen 600 Mg Tablet) 600 mg PO Q8H PRN PRN Reason: Pain, Mild (Pain Scale 1-3) Last Admin: 11/14/23 21:07 Dose: 600 mg Loperamide HCl (Loperamide Hcl 2 Mg Capsule) 4 mg PO Q4H PRN PRN Reason: Diarrhea Last Admin: 11/08/23 14:31 Dose: 4 mg Magnesium Hydroxide (Milk Of Magnesia 30 Ml Oral.Susp) 30 ml PO DAILY PRN PRN Reason: Constipation Methadone HCl (Methadone Hcl 20 Mg/2 Ml Oral.Conc) 40 mg PO DAILY [facility] Last Admin: 11/15/23 08:21 Dose: 40 mg Nicotine Polacrilex (Nicotine Polacrilex 2 Mg Gum) 4 mg BUCCAL Q2H PRN PRN Reason: Nicotine Cravings Last Admin: 11/08/23 08:56 Dose: 4 mg Olanzapine (Olanzapine 7.5 Mg Tablet) 15 mg PO BEDTIME [facility] Last Admin: 11/14/23 21:02 Dose: 15 mg Quetiapine Fumarate (Quetiapine Fumarate 50 Mg Tablet) 50 mg PO BEDTIME [facility] Last Admin: 11/14/23 21:02 Dose: 50 mg Senna (Sennosides 8.6 Mg Tablet) 17.2 mg PO DAILY [facility] Last Admin: 11/15/23 08:20 Dose: 17.2 mg Trazodone HCl (Trazodone Hcl 50 Mg Tablet) 50 mg PO BEDTIME MRX1 PRN PRN Reason: Insomnia Last Admin: 11/14/23 21:02 Dose: 50 mg Trimethoprim/Sulfamethoxazole (Sulfamethox/Trimeth 800/160 Tablet) 1 tab PO Q12H [facility] Stop: 11/15/23 10:01 Last Admin: 11/14/23 21:02 Dose: 1 tab Allergies Allergies Allergy/AdvReac Type Severity Reaction Status Date / Time No Known Allergies Allergy Verified 11/04/23 13:50 Assessment & Plan Assessment & Plan (1) Schizophrenia: Status: Acute Code(s): F20.9 - Schizophrenia, unspecified (2) Cocaine use disorder, moderate, dependence: Status: Acute Code(s): F14.20 - Cocaine dependence, uncomplicated (3) Opioid use disorder, moderate, dependence: Status: Acute Code(s): F11.20 - Opioid dependence, uncomplicated Plan Ms. Sow is a 43 year-old woman who self presented [place] [facility] [place] increase depression and SI. She also presents with complex system of delusions including paranoid and somatic delusions. It appears she has been mostly untreated. She also presents with substance use disorder. she was started on methadone. We discussed risks, benefits and alternative treatment options, pt agreed to start risperidone. PLAN 1. Admit to M3, cv 15 minutes checks 2. start risperidone 1mg po BID 3. aftercare planning 4. obtain collateral information 11/09: Keeping to self. Not attending groups. Pt reports she did not take the risperidal this morning because she does not like the way it made her feel; pt was unable to elaborate on this. Discussed zyprexa;risks/benefits, pt agreed to trial medication. She also requested to start hydroxyzine d/t helping with her anxiety. Pt stated, I get overwhelmed with boredom. I just want to punch myself sometimes. I feel like someone is inside me . Pt reports auditory and visual hallucinations; pt stated, the voices make fun of me and I see shadows . Pt reports she would like to go to a substance abuse program when discharged from hospital. DC Risperidal DC Seroquel Start: Zyprexa 10mg PO bedtime Cogentin 0.5mg PO bedtime Hydroxyzine 25mg PO Q6HR PRN anxiety 11/10: Pt reports feeling okay today;pt stated, I have anxiety on and off. I wacked myself in the face yesterday. I don't want to hit myself, sometimes I get overwhelmed. I love myself. I no longer feel like anyone is trying to rape me but the voices keep telling me that someone is trying to kill and rape me and my family . Pt reports visual hallucinations of shadow people . pt denies any side effects from Zyprexa. denies SI/HI. Continue current tx plan. 11/11: Pt reports feeling anxious today; pt stated, coloring usually helps with my anxiety. I didn't hit myself yesterday which is good. The zyprexa seems to be helping . Continues to report auditory and visual hallucinations. Increased Zyprexa to 15mg PO bedtime Start: clonidine 0.1mg PO daily PRN anxiety Senna 17.2mg PO daily 11/12: DC hydroxyzine per pt request, otherwise continue current mgmt. 11/13: continue current mgmt. c/o [facility]. 11/14: Pt reports feeling mad today because I miss my kids. I have eleven. They're adopted. I've never been . Pt reports ongoing auditory and visual hallucinations. denies SI/HI. Discussed medications; pt reports she would be open to trying new medications such as a mood stabilizer. Pt reports she does not want to take Risperidal again because it gave me sleep paralysis . Will discuss possibility of HECK. 11/15: Pt reports feeling okay today; pt stated, I'm eating and gaining weight. it makes me happy . Pt reports ongoing auditory and visual hallucinations. denies SI/HI. T/W discussed risks/benefits of HECK; pt reports she would rather get an injection than take pills everyday . Pt stated, I know I'm schizophrenic. I think using substances really effected my mental health. I'm done with using . DC Zyprexa. Start: Abilify 5mg PO bedtime Patient educated on: diagnosis, medication risk/benefits, substance abuse and therapeutic strategies Informed Consent: understands Reason for continued inpatient stay Substantial Risk for: med/psych decompensation Time Spent With Patient Time: Total time managing care of this patient today _30___ minutes.
[2023-11-15] MEDS: Sulfamethox/Trimeth 800/160 TABLET 1 TAB PO (09:20)
[2023-11-15] MEDS: cloNIDine HCL 0.1 MG TABLET PO (17:51)
[2023-11-15] MEDS: Ibuprofen 600 MG TABLET PO (17:52)
[2023-11-15] MEDS: Acetaminophen 325 MG TABLET 650 MG PO (17:52)
[2023-11-15 19:55] VITALS: BP 106/60; PULSE 85; RESP 16; TEMP 36.2; O2SAT 98
[2023-11-15] MEDS: ARIPiprazole 5 MG TABLET PO (21:20)
[2023-11-15] MEDS: traZODone HCL 50 MG TABLET PO (21:20)
[2023-11-15] MEDS: Benztropine Mesylate 0.5 MG TABLET PO (21:20)
[2023-11-15] MEDS: QUEtiapine Fumarate 50 MG TABLET PO (21:20)
[2023-11-16 07:35] VITALS: BP 107/59; PULSE 82; TEMP 36.1; O2SAT 100
[2023-11-16] MEDS: methADONE HCl 20 MG/2 ML ORAL.CONC 40 MG PO (08:26)
[2023-11-16] MEDS: Sennosides 8.6 MG TABLET 17.2 MG PO (08:26)
--- NOTE | 2023-11-16 09:11 | P.PNPSI_ITS ---
Subjective Subjective Date of Service: 11/16/23 Reason For Visit: Crisis Subjective Notes: Conditional Voluntary Interim History: Reviewed with . Pt reports feeling anxious about the future ; pt stated, I don't want to live on the streets. I just want to feel better. I'm not going to use drugs anymore . denies any side effects from medication. Continues to report auditory and visual hallucinations. Pt reports not feeling well and requesting covid test. Pt reports she does not like how Trazodone makes her feel; requested to have it stopped. DC Trazodone Increase Seroquel to 100mg PO bedtime. Ordered Covid swab. Medication Compliance: Yes Side effects from medications: No Attending Groups: Intermittent Review of Systems Constitutional: Reports as per HPI Eyes: Reports as per HPI Reports as per HPI Cardiovascular: Reports as per HPI Respiratory: Reports as per HPI Gastrointestinal: Reports as per HPI Musculoskeletal: Reports as per HPI Skin/Breast: Reports as per HPI Reports as per HPI Psychiatric: Reports as per HPI Endocrine: Reports as per HPI Hematologic/Lymphatic: Reports as per HPI Allergic/Immunologic: Reports as per HPI Mental Status Exam Mental Status Exam Narrative: Pt is alert and oriented; behavior is cooperative; dressed in casual attire; mood is described as anxious ; eye contact appropriate; Speech is normal rate, volume and prosody and not pressured; thought process is tangential at times; Thought content is on tx; Reports auditory and visual hallucinations. denies SI/HI. Diagnostics Vital Signs (24Hr): Vital Signs - 24 hr 11/15/23 19:55 11/16/23 07:35 Temperature 97.2 F 96.9 F Pulse Rate 85 82 Respiratory Rate 16 Blood Pressure 106/60 107/59 L Pulse Oximetry 98 100 Oxygen Delivery Method Room Air Room Air BMI result Body Mass Index 18.9 Labs 11/04/23 14:43 11/04/23 14:43 Imaging Radiology Impressions: ITS Impressions Chest X-Ray 11/04/23 15:00 IMPRESSION: Unremarkable examination. Medications Medications Current Medications Acetaminophen (Acetaminophen 325 Mg Tablet) 650 mg PO Q6H PRN PRN Reason: Headache/Pain Mild Scale (1-3) Last Admin: 11/15/23 17:52 Dose: 650 mg Al Hydroxide/Mg Hydroxide (Magnesium Hydrox/Alum Hydrox 30 Ml Oral.Susp) 30 ml PO Q6H PRN PRN Reason: Heartburn/Nausea Aripiprazole (Aripiprazole 5 Mg Tablet) 5 mg PO BEDTIME [facility] Last Admin: 11/15/23 21:20 Dose: 5 mg Benztropine Mesylate (Benztropine Mesylate 0.5 Mg Tablet) 0.5 mg PO BEDTIME [facility] Last Admin: 11/15/23 21:20 Dose: 0.5 mg Clonidine HCl (Clonidine Hcl 0.1 Mg Tablet) 0.1 mg PO DAILY PRN; Protocol PRN Reason: Anxiety Last Admin: 11/15/23 17:51 Dose: 0.1 mg Ibuprofen (Ibuprofen 600 Mg Tablet) 600 mg PO Q8H PRN PRN Reason: Pain, Mild (Pain Scale 1-3) Last Admin: 11/15/23 17:52 Dose: 600 mg Loperamide HCl (Loperamide Hcl 2 Mg Capsule) 4 mg PO Q4H PRN PRN Reason: Diarrhea Last Admin: 11/08/23 14:31 Dose: 4 mg Magnesium Hydroxide (Milk Of Magnesia 30 Ml Oral.Susp) 30 ml PO DAILY PRN PRN Reason: Constipation Methadone HCl (Methadone Hcl 20 Mg/2 Ml Oral.Conc) 40 mg PO DAILY [facility] Last Admin: 11/16/23 08:26 Dose: 40 mg Nicotine Polacrilex (Nicotine Polacrilex 2 Mg Gum) 4 mg BUCCAL Q2H PRN PRN Reason: Nicotine Cravings Last Admin: 11/08/23 08:56 Dose: 4 mg Quetiapine Fumarate (Quetiapine Fumarate 50 Mg Tablet) 50 mg PO BEDTIME [facility] Last Admin: 11/15/23 21:20 Dose: 50 mg Senna (Sennosides 8.6 Mg Tablet) 17.2 mg PO DAILY [facility] Last Admin: 11/16/23 08:26 Dose: 17.2 mg Trazodone HCl (Trazodone Hcl 50 Mg Tablet) 50 mg PO BEDTIME MRX1 PRN PRN Reason: Insomnia Last Admin: 11/15/23 21:20 Dose: 50 mg Allergies Allergies Allergy/AdvReac Type Severity Reaction Status Date / Time No Known Allergies Allergy Verified 11/04/23 13:50 Assessment & Plan Assessment & Plan (1) Schizophrenia: Status: Acute Code(s): F20.9 - Schizophrenia, unspecified (2) Cocaine use disorder, moderate, dependence: Status: Acute Code(s): F14.20 - Cocaine dependence, uncomplicated (3) Opioid use disorder, moderate, dependence: Status: Acute Code(s): F11.20 - Opioid dependence, uncomplicated Plan Ms. Sow is a 43 year-old woman who self [place] [facility] [place] increase depression and SI. She also presents with complex system of delusions including paranoid and somatic delusions. It appears she has been mostly untreated. She also presents with substance use disorder. she was started on methadone. We discussed risks, benefits and alternative treatment options, pt agreed to start risperidone. PLAN 1. Admit to M3, cv 15 minutes checks 2. start risperidone 1mg po BID 3. aftercare planning 4. obtain collateral information 11/09: Keeping to self. Not attending groups. Pt reports she did not take the risperidal this morning because she does not like the way it made her feel; pt was unable to elaborate on this. Discussed zyprexa;risks/benefits, pt agreed to trial medication. She also requested to start hydroxyzine d/t helping with her anxiety. Pt stated, I get overwhelmed with boredom. I just want to punch myself sometimes. I feel like someone is inside me . Pt reports auditory and visual hallucinations; pt stated, the voices make fun of me and I see shadows . Pt reports she would like to go to a substance abuse program when discharged from hospital. DC Risperidal DC Seroquel Start: Zyprexa 10mg PO bedtime Cogentin 0.5mg PO bedtime Hydroxyzine 25mg PO Q6HR PRN anxiety 11/10: Pt reports feeling okay today;pt stated, I have anxiety on and off. I wacked myself in the face yesterday. I don't want to hit myself, sometimes I get overwhelmed. I love myself. I no longer feel like anyone is trying to rape me but the voices keep telling me that someone is trying to kill and rape me and my family . Pt reports visual hallucinations of shadow people . pt denies any side effects from Zyprexa. denies SI/HI. Continue current tx plan. 11/11: Pt reports feeling anxious today; pt stated, coloring usually helps with my anxiety. I didn't hit myself yesterday which is good. The zyprexa seems to be helping . Continues to report auditory and visual hallucinations. Increased Zyprexa to 15mg PO bedtime Start: clonidine 0.1mg PO daily PRN anxiety Senna 17.2mg PO daily 11/12: DC hydroxyzine per pt request, otherwise continue current mgmt. 11/13: continue current mgmt. c/o [facility]. 11/14: Pt reports feeling mad today because I miss my kids. I have eleven. They're adopted. I've never been . Pt reports ongoing auditory and visual hallucinations. denies SI/HI. Discussed medications; pt reports she would be open to trying new medications such as a mood stabilizer. Pt reports she does not want to take Risperidal again because it gave me sleep paralysis . Will discuss possibility of HECK. 11/15: Pt reports feeling okay today; pt stated, I'm eating and gaining weight. it makes me happy . Pt reports ongoing auditory and visual hallucinations. denies SI/HI. T/W discussed risks/benefits of HECK; pt reports she would rather get an injection than take pills everyday . Pt stated, I know I'm schizophrenic. I think using substances really effected my mental health. I'm done with using . DC Zyprexa. Start: Abilify 5mg PO bedtime 11/16: Pt reports feeling anxious about the future ; pt stated, I don't want to live on the streets. I just want to feel better. I'm not going to use drugs anymore . denies any side effects from medication. Continues to report auditory and visual hallucinations. Pt reports not feeling well and requesting covid test. Pt reports she does not like how Trazodone makes her feel; requested to have it stopped. DC Trazodone Increase Seroquel to 100mg PO bedtime. Ordered Covid swab. Patient educated on: diagnosis, medication risk/benefits, substance abuse and therapeutic strategies Informed Consent: understands Reason for continued inpatient stay Substantial Risk for: med/psych decompensation Time Spent With Patient Time: Total time managing care of this patient today _30___ minutes.
[2023-11-16] MEDS: Acetaminophen 325 MG TABLET 650 MG PO (11:05)
[2023-11-16] MEDS: Ibuprofen 600 MG TABLET PO (11:05)
[2023-11-16 14:03] LABS: COVID-19 Test Negative (Negative); IDNOW Serial# 152EDE1D
[2023-11-16 19:55] VITALS: BP 133/62; PULSE 80; RESP 18; TEMP 36.8; O2SAT 99
[2023-11-16] MEDS: QUEtiapine Fumarate 100 MG TABLET PO (20:44)
[2023-11-16] MEDS: ARIPiprazole 5 MG TABLET PO (20:45)
[2023-11-16] MEDS: Benztropine Mesylate 0.5 MG TABLET PO (20:45)
[2023-11-17 07:00] VITALS: BMI 21.1
[2023-11-17 07:30] VITALS: BP 120/73; PULSE 82; RESP 16; TEMP 36.8; O2SAT 99
[2023-11-17] MEDS: Sennosides 8.6 MG TABLET 17.2 MG PO (08:32)
[2023-11-17] MEDS: methADONE HCl 20 MG/2 ML ORAL.CONC 40 MG PO (08:33)
--- NOTE | 2023-11-17 09:13 | HO.PSYCHPN ---
Subjective Subjective Date of Service: 11/17/23 Reason For Visit: Crisis Subjective Notes: Conditional Voluntary Interim History: Reviewed with . Pt reports feeling depressed today; pt stated, I miss my family. I saw my two years ago. I spoke to him before coming into the hospital. You guys can talk to him . 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 DC Seroquel DC Abilify Start: Risperidal 1mg PO BID Medication Compliance: Yes Side effects from medications: No Attending Groups: Intermittent Review of Systems Constitutional: Reports as per HPI Eyes: Reports as per HPI Reports as per HPI Cardiovascular: Reports as per HPI Respiratory: Reports as per HPI Gastrointestinal: Reports as per HPI Musculoskeletal: Reports as per HPI Skin/Breast: Reports as per HPI Reports as per HPI Psychiatric: Reports as per HPI Endocrine: Reports as per HPI Hematologic/Lymphatic: Reports as per HPI Allergic/Immunologic: Reports as per HPI Mental Status Exam Mental Status Exam Narrative: Pt is alert and oriented; behavior is cooperative; dressed in casual attire; mood is described as depressed ; eye contact appropriate; Speech is normal rate, volume and prosody and not pressured; thought process is tangential at times; Thought content is on tx; Reports auditory and visual hallucinations. denies SI/HI. Diagnostics Vital Signs (24Hr): Vital Signs - 24 hr 11/16/23 19:55 11/17/23 07:30 Temperature 98.2 F 98.2 F Pulse Rate 80 82 Respiratory Rate 18 16 Blood Pressure 133/62 120/73 Pulse Oximetry 99 99 Oxygen Delivery Method Room Air Room Air BMI result Body Mass Index 18.9 Labs 11/04/23 14:43 11/04/23 14:43 Labs: Laboratory Results - last 48 hr 11/16/23 13:40 COVID-19 ([facility]) Negative COVID-19 Clin Com See Note Imaging Radiology Impressions: ITS Impressions Chest X-Ray 11/04/23 15:00 IMPRESSION: Unremarkable examination. Medications Medications Current Medications Acetaminophen (Acetaminophen 325 Mg Tablet) 650 mg PO Q6H PRN PRN Reason: Headache/Pain Mild Scale (1-3) Last Admin: 11/16/23 11:05 Dose: 650 mg Al Hydroxide/Mg Hydroxide (Magnesium Hydrox/Alum Hydrox 30 Ml Oral.Susp) 30 ml PO Q6H PRN PRN Reason: Heartburn/Nausea Aripiprazole (Aripiprazole 5 Mg Tablet) 5 mg PO BEDTIME [facility] Last Admin: 11/16/23 20:45 Dose: 5 mg Benzocaine (Throat Lozenge, Medicated Lozenge) 1 lozenge MUCOUS MEM Q2H PRN PRN Reason: Sore Throat Benztropine Mesylate (Benztropine Mesylate 0.5 Mg Tablet) 0.5 mg PO BEDTIME [facility] Last Admin: 11/16/23 20:45 Dose: 0.5 mg Clonidine HCl (Clonidine Hcl 0.1 Mg Tablet) 0.1 mg PO DAILY PRN; Protocol PRN Reason: Anxiety Last Admin: 11/15/23 17:51 Dose: 0.1 mg Ibuprofen (Ibuprofen 600 Mg Tablet) 600 mg PO Q8H PRN PRN Reason: Pain, Mild (Pain Scale 1-3) Last Admin: 11/16/23 11:05 Dose: 600 mg Magnesium Hydroxide (Milk Of Magnesia 30 Ml Oral.Susp) 30 ml PO DAILY PRN PRN Reason: Constipation Methadone HCl (Methadone Hcl 20 Mg/2 Ml Oral.Conc) 40 mg PO DAILY [facility] Last Admin: 11/17/23 08:33 Dose: 40 mg Nicotine Polacrilex (Nicotine Polacrilex 2 Mg Gum) 4 mg BUCCAL Q2H PRN PRN Reason: Nicotine Cravings Last Admin: 11/08/23 08:56 Dose: 4 mg Quetiapine Fumarate (Quetiapine Fumarate 100 Mg Tablet) 100 mg PO BEDTIME [facility] Last Admin: 11/16/23 20:44 Dose: 100 mg Senna (Sennosides 8.6 Mg Tablet) 17.2 mg PO DAILY [facility] Last Admin: 11/17/23 08:32 Dose: 17.2 mg Allergies Allergies Allergy/AdvReac Type Severity Reaction Status Date / Time No Known Allergies Allergy Verified 11/04/23 13:50 Assessment & Plan Assessment & Plan (1) Schizophrenia: Status: Acute Code(s): F20.9 - Schizophrenia, unspecified (2) Cocaine use disorder, moderate, dependence: Status: Acute Code(s): F14.20 - Cocaine dependence, uncomplicated (3) Opioid use disorder, moderate, dependence: Status: Acute Code(s): F11.20 - Opioid dependence, uncomplicated Plan Ms. Sow is a 43 year-old woman who self presented to [facility] [place] [facility] reporting increase depression and SI. She also presents with complex system of delusions including paranoid and somatic delusions. It appears she has been mostly untreated. She also presents with substance use disorder. she was started on methadone. We discussed risks, benefits and alternative treatment options, pt agreed to start risperidone. PLAN 1. Admit to M3, cv 15 minutes checks 2. start risperidone 1mg po BID 3. aftercare planning 4. obtain collateral information 11/09: Keeping to self. Not attending groups. Pt reports she did not take the risperidal this morning because she does not like the way it made her feel; pt was unable to elaborate on this. Discussed zyprexa;risks/benefits, pt agreed to trial medication. She also requested to start hydroxyzine d/t helping with her anxiety. Pt stated, I get overwhelmed with boredom. I just want to punch myself sometimes. I feel like someone is inside me . Pt reports auditory and visual hallucinations; pt stated, the voices make fun of me and I see shadows . Pt reports she would like to go to a substance abuse program when discharged from hospital. DC Risperidal DC Seroquel Start: Zyprexa 10mg PO bedtime Cogentin 0.5mg PO bedtime Hydroxyzine 25mg PO Q6HR PRN anxiety 11/10: Pt reports feeling okay today;pt stated, I have anxiety on and off. I wacked myself in the face yesterday. I don't want to hit myself, sometimes I get overwhelmed. I love myself. I no longer feel like anyone is trying to rape me but the voices keep telling me that someone is trying to kill and rape me and my family . Pt reports visual hallucinations of shadow people . pt denies any side effects from Zyprexa. denies SI/HI. Continue current tx plan. 11/11: Pt reports feeling anxious today; pt stated, coloring usually helps with my anxiety. I didn't hit myself yesterday which is good. The zyprexa seems to be helping . Continues to report auditory and visual hallucinations. Increased Zyprexa to 15mg PO bedtime Start: clonidine 0.1mg PO daily PRN anxiety Senna 17.2mg PO daily 11/12: DC hydroxyzine per pt request, otherwise continue current mgmt. 11/13: continue current mgmt. c/o [facility]. 11/14: Pt reports feeling mad today because I miss my kids. I have eleven. They're adopted. I've never been . Pt reports ongoing auditory and visual hallucinations. denies SI/HI. Discussed medications; pt reports she would be open to trying new medications such as a mood stabilizer. Pt reports she does not want to take Risperidal again because it gave me sleep paralysis . Will discuss possibility of HECK. 11/15: Pt reports feeling okay today; pt stated, I'm eating and gaining weight. it makes me happy . Pt reports ongoing auditory and visual hallucinations. denies SI/HI. T/W discussed risks/benefits of HECK; pt reports she would rather get an injection than take pills everyday . Pt stated, I know I'm schizophrenic. I think using substances really effected my mental health. I'm done with using . DC Zyprexa. Start: Abilify 5mg PO bedtime 11/16: Pt reports feeling anxious about the future ; pt stated, I don't want to live on the streets. I just want to feel better. I'm not going to use drugs anymore . denies any side effects from medication. Continues to report auditory and visual hallucinations. Pt reports not feeling well and requesting covid test. Pt reports she does not like how Trazodone makes her feel; requested to have it stopped. DC Trazodone Increase Seroquel to 100mg PO bedtime. Ordered Covid swab. 11/17: Pt reports feeling depressed today; pt stated, I miss my family. I saw my two years ago. I spoke to him before coming into the hospital. You guys can talk to him . 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 DC Seroquel DC Abilify Start: Risperidal 1mg PO BID Patient educated on: diagnosis, medication risk/benefits and therapeutic strategies Informed Consent: understands Reason for continued inpatient stay Substantial Risk for: med/psych decompensation Time Spent With Patient Time: Total time managing care of this patient today _20___ minutes.
[2023-11-17] MEDS: Magnesium Hydrox/Alum Hydrox 30 ML ORAL.SUSP PO (14:04)
[2023-11-17] MEDS: risperiDONE 1 MG TABLET PO ×2 (15:24→22:20)
[2023-11-17 18:27] VITALS: BP 131/67
[2023-11-17] MEDS: Ibuprofen 600 MG TABLET PO (18:27)
[2023-11-17] MEDS: cloNIDine HCL 0.1 MG TABLET PO (18:27)
[2023-11-17 20:09] VITALS: BP 113/56; PULSE 78; RESP 16; TEMP 37.1; O2SAT 99
[2023-11-17] MEDS: Benztropine Mesylate 0.5 MG TABLET PO (22:20)
[2023-11-18] MEDS: Acetaminophen 325 MG TABLET 650 MG PO ×2 (01:23→20:13)
[2023-11-18 07:40] VITALS: BP 106/59; PULSE 75; RESP 14; TEMP 36.1; O2SAT 99
[2023-11-18] MEDS: Sennosides 8.6 MG TABLET 17.2 MG PO (08:23)
[2023-11-18] MEDS: risperiDONE 1 MG TABLET PO ×2 (08:23→20:14)
[2023-11-18] MEDS: methADONE HCl 20 MG/2 ML ORAL.CONC 40 MG PO (08:24)
--- NOTE | 2023-11-18 09:12 | HO.PSYCHPN ---
Subjective Subjective Date of Service: 11/18/23 Reason For Visit: Crisis Subjective Notes: Conditional Voluntary Interim History: Reviewed with . Pt reports feeling a little excited today; pt stated, I found out from a friend of mine that my family got green cards. I can't tell you more than that . Pt reports she can feel when one of my family members gets excited ; pt stated, maybe the risperidal opened up a window to excitement for me . denies SI/HI/VH. Reports voices have decreased today. Increase clonidine to 0.1mg PO BID PRN Medication Compliance: Yes Side effects from medications: No Attending Groups: Intermittent Review of Systems Constitutional: Reports as per HPI Eyes: Reports as per HPI Reports as per HPI Cardiovascular: Reports as per HPI Respiratory: Reports as per HPI Gastrointestinal: Reports as per HPI Genitourinary: Reports as per HPI Musculoskeletal: Reports as per HPI Skin/Breast: Reports as per HPI Reports as per HPI Psychiatric: Reports as per HPI Endocrine: Reports as per HPI Hematologic/Lymphatic: Reports as per HPI Allergic/Immunologic: Reports as per HPI Mental Status Exam Mental Status Exam Narrative: Pt is alert and oriented; behavior is cooperative; dressed in casual attire; mood is described as excited ; eye contact appropriate; Speech is normal rate, volume and prosody and not pressured; thought process is tangential at times; Thought content is on tx; denies SI/HI/VH. Reports auditory hallucinations have decreased. Diagnostics Vital Signs (24Hr): Vital Signs - 24 hr 11/17/23 18:27 11/17/23 20:09 11/18/23 07:40 Temperature 98.8 F 96.9 F Pulse Rate 78 75 Respiratory Rate 16 14 Blood Pressure 131/67 113/56 L 106/59 L Pulse Oximetry 99 99 Oxygen Delivery Method Room Air Room Air BMI result Body Mass Index 21.1 Labs 11/04/23 14:43 11/04/23 14:43 Labs: Laboratory Results - last 48 hr 11/16/23 13:40 COVID-19 ([facility]) Negative COVID-19 Clin Com See Note Imaging Radiology Impressions: ITS Impressions Chest X-Ray 11/04/23 15:00 IMPRESSION: Unremarkable examination. Medications Medications Current Medications Acetaminophen (Acetaminophen 325 Mg Tablet) 650 mg PO Q6H PRN PRN Reason: Headache/Pain Mild Scale (1-3) Last Admin: 11/18/23 01:23 Dose: 650 mg Al Hydroxide/Mg Hydroxide (Magnesium Hydrox/Alum Hydrox 30 Ml Oral.Susp) 30 ml PO Q6H PRN PRN Reason: Heartburn/Nausea Last Admin: 11/17/23 14:04 Dose: 30 ml Benzocaine (Throat Lozenge, Medicated Lozenge) 1 lozenge MUCOUS MEM Q2H PRN PRN Reason: Sore Throat Benztropine Mesylate (Benztropine Mesylate 0.5 Mg Tablet) 0.5 mg PO BEDTIME [facility] Last Admin: 11/17/23 22:20 Dose: 0.5 mg Clonidine HCl (Clonidine Hcl 0.1 Mg Tablet) 0.1 mg PO DAILY PRN; Protocol PRN Reason: Anxiety Last Admin: 11/17/23 18:27 Dose: 0.1 mg Ibuprofen (Ibuprofen 600 Mg Tablet) 600 mg PO Q8H PRN PRN Reason: Pain, Mild (Pain Scale 1-3) Last Admin: 11/17/23 18:27 Dose: 600 mg Magnesium Hydroxide (Milk Of Magnesia 30 Ml Oral.Susp) 30 ml PO DAILY PRN PRN Reason: Constipation Methadone HCl (Methadone Hcl 20 Mg/2 Ml Oral.Conc) 40 mg PO DAILY [facility] Last Admin: 11/18/23 08:24 Dose: 40 mg Nicotine Polacrilex (Nicotine Polacrilex 2 Mg Gum) 4 mg BUCCAL Q2H PRN PRN Reason: Nicotine Cravings Last Admin: 11/08/23 08:56 Dose: 4 mg Risperidone (Risperidone 1 Mg Tablet) 1 mg PO BID [facility] Last Admin: 11/18/23 08:23 Dose: 1 mg Senna (Sennosides 8.6 Mg Tablet) 17.2 mg PO DAILY [facility] Last Admin: 11/18/23 08:23 Dose: 17.2 mg Allergies Allergies Allergy/AdvReac Type Severity Reaction Status Date / Time No Known Allergies Allergy Verified 11/04/23 13:50 Assessment & Plan Assessment & Plan (1) Schizophrenia: Status: Acute Code(s): F20.9 - Schizophrenia, unspecified (2) Cocaine use disorder, moderate, dependence: Status: Acute Code(s): F14.20 - Cocaine dependence, uncomplicated (3) Opioid use disorder, moderate, dependence: Status: Acute Code(s): F11.20 - Opioid dependence, uncomplicated Plan Ms. Sow is a 43 year-old woman who self presented to [facility] reporting increase depression and SI. She also presents with complex system of delusions including paranoid and somatic delusions. It appears she has been mostly untreated. She also presents with substance use disorder. she was started on methadone. We discussed risks, benefits and alternative treatment options, pt agreed to start risperidone. PLAN 1. Admit to M3, cv 15 minutes checks 2. start risperidone 1mg po BID 3. aftercare planning 4. obtain collateral information 11/09: Keeping to self. Not attending groups. Pt reports she did not take the risperidal this morning because she does not like the way it made her feel; pt was unable to elaborate on this. Discussed zyprexa;risks/benefits, pt agreed to trial medication. She also requested to start hydroxyzine d/t helping with her anxiety. Pt stated, I get overwhelmed with boredom. I just want to punch myself sometimes. I feel like someone is inside me . Pt reports auditory and visual hallucinations; pt stated, the voices make fun of me and I see shadows . Pt reports she would like to go to a substance abuse program when discharged from hospital. DC Risperidal DC Seroquel Start: Zyprexa 10mg PO bedtime Cogentin 0.5mg PO bedtime Hydroxyzine 25mg PO Q6HR PRN anxiety 11/10: Pt reports feeling okay today;pt stated, I have anxiety on and off. I wacked myself in the face yesterday. I don't want to hit myself, sometimes I get overwhelmed. I love myself. I no longer feel like anyone is trying to rape me but the voices keep telling me that someone is trying to kill and rape me and my family . Pt reports visual hallucinations of shadow people . pt denies any side effects from Zyprexa. denies SI/HI. Continue current tx plan. 11/11: Pt reports feeling anxious today; pt stated, coloring usually helps with my anxiety. I didn't hit myself yesterday which is good. The zyprexa seems to be helping . Continues to report auditory and visual hallucinations. Increased Zyprexa to 15mg PO bedtime Start: clonidine 0.1mg PO daily PRN anxiety Senna 17.2mg PO daily 11/12: DC hydroxyzine per pt request, otherwise continue current mgmt. 11/13: continue current mgmt. c/o [facility]. 11/14: Pt reports feeling mad today because I miss my kids. I have eleven. They're adopted. I've never been . Pt reports ongoing auditory and visual hallucinations. denies SI/HI. Discussed medications; pt reports she would be open to trying new medications such as a mood stabilizer. Pt reports she does not want to take Risperidal again because it gave me sleep paralysis . Will discuss possibility of HECK. 11/15: Pt reports feeling okay today; pt stated, I'm eating and gaining weight. it makes me happy . Pt reports ongoing auditory and visual hallucinations. denies SI/HI. T/W discussed risks/benefits of HECK; pt reports she would rather get an injection than take pills everyday . Pt stated, I know I'm schizophrenic. I think using substances really effected my mental health. I'm done with using . DC Zyprexa. Start: Abilify 5mg PO bedtime 11/16: Pt reports feeling anxious about the future ; pt stated, I don't want to live on the streets. I just want to feel better. I'm not going to use drugs anymore . denies any side effects from medication. Continues to report auditory and visual hallucinations. Pt reports not feeling well and requesting covid test. Pt reports she does not like how Trazodone makes her feel; requested to have it stopped. DC Trazodone Increase Seroquel to 100mg PO bedtime. Ordered Covid swab. 11/17: Pt reports feeling depressed today; pt stated, I miss my family. I saw my two years ago. I spoke to him before coming into the hospital. You guys can talk to him . 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 DC Seroquel DC Abilify Start: Risperidal 1mg PO BID 11/18: Pt reports feeling a little excited today; pt stated, I found out from a friend of mine that my family got green cards. I can't tell you more than that . Pt reports she can feel when one of my family members gets excited ; pt stated, maybe the risperidal opened up a window to excitement for me . denies SI/HI/VH. Reports voices have decreased today. Increase clonidine to 0.1mg PO BID PRN Patient educated on: diagnosis, medication risk/benefits and therapeutic strategies Informed Consent: understands Reason for continued inpatient stay Substantial Risk for: med/psych decompensation Time Spent With Patient Time: Total time managing care of this patient today _20___ minutes.
[2023-11-18 14:17] VITALS: BP 120/64; PULSE 91
[2023-11-18] MEDS: cloNIDine HCL 0.1 MG TABLET PO (14:20)
[2023-11-18] MEDS: Ibuprofen 600 MG TABLET PO (14:20)
[2023-11-18] MEDS: Throat Lozenge, Medicated LOZENGE 1 LOZENGE MUCOUS MEM ×2 (14:21→20:14)
[2023-11-18 19:40] VITALS: BP 104/61; PULSE 95; RESP 18; TEMP 37.2; O2SAT 98
[2023-11-18] MEDS: Benztropine Mesylate 0.5 MG TABLET PO (20:14)
[2023-11-19 07:45] VITALS: BP 123/76; PULSE 85; RESP 16; TEMP 36.7; O2SAT 100
[2023-11-19] MEDS: Sennosides 8.6 MG TABLET 17.2 MG PO (08:13)
[2023-11-19] MEDS: methADONE HCl 20 MG/2 ML ORAL.CONC 40 MG PO (08:14)
[2023-11-19] MEDS: Ibuprofen 600 MG TABLET PO ×2 (09:24→20:34)
--- NOTE | 2023-11-19 11:38 | P.PNPSI_ITS ---
Subjective Subjective Date of Service: 11/19/23 Reason For Visit: Crisis Subjective Notes: Conditional Voluntary Medical Problems Affecting Mental Status: No Interim History: Still complaining of sore throat. Had negative covid test on 11/17. States she recently had a course of antibiotics for ENT. Sleeping and eating OK. States risperdal is helping her voices but giving her a massive headache. Has changed her mind several times about meds since admission. States she won't take it anymore. Complaining of anxiety. States clonidine helps. Medication Compliance: Yes Side effects from medications: Yes (reports headache from risperdal. Unclear if this is a side effect) Attending Groups: Yes Review of Systems Acute medical concerns: Yes sore throat Medical Review of Systems: unchanged Mental Status Exam Mental Status Exam Patient Appearance: Well Grooomed Patient Orientation: Person, Place, Time and Situation Level of Consciousness: Alert Patient Behavior: Appropriate Mood Description: Anxious Affect Description: Anxious Patient Cognition Impaired: No Ability to Follow Directions: Good Speech Pattern: Rapid Memory Description: Intact Hallucinations: Auditory and Visual (seeing animals but description is more consistent with illusions) Delusions: Not Present Thought Process: Intact Thought Content: positive for Preoccupation and positive for Suicidal Ideation (passive wish to ) Depressive Symptoms: Increased Anxiety and Unexplained Headaches Judgement: Fair Diagnostics Vital Signs (24Hr): Vital Signs - 24 hr 11/18/23 14:17 11/18/23 19:40 11/19/23 07:45 Temperature 98.9 F 98.0 F Pulse Rate 91 95 85 Respiratory Rate 18 16 Blood Pressure 120/64 104/61 123/76 Pulse Oximetry 98 100 Oxygen Delivery Method Room Air Room Air BMI result Body Mass Index 21.1 Labs 11/04/23 14:43 11/04/23 14:43 Imaging Radiology Impressions: ITS Impressions Chest X-Ray 11/04/23 15:00 IMPRESSION: Unremarkable examination. Medications Medications Current Medications Acetaminophen (Acetaminophen 325 Mg Tablet) 650 mg PO Q6H PRN PRN Reason: Headache/Pain Mild Scale (1-3) Last Admin: 11/18/23 20:13 Dose: 650 mg Al Hydroxide/Mg Hydroxide (Magnesium Hydrox/Alum Hydrox 30 Ml Oral.Susp) 30 ml PO Q6H PRN PRN Reason: Heartburn/Nausea Last Admin: 11/17/23 14:04 Dose: 30 ml Benzocaine (Throat Lozenge, Medicated Lozenge) 1 lozenge MUCOUS MEM Q2H PRN PRN Reason: Sore Throat Last Admin: 11/18/23 20:14 Dose: 1 lozenge Benztropine Mesylate (Benztropine Mesylate 0.5 Mg Tablet) 0.5 mg PO BEDTIME [facility] Last Admin: 11/18/23 20:14 Dose: 0.5 mg Clonidine HCl (Clonidine Hcl 0.1 Mg Tablet) 0.1 mg PO BID PRN; Protocol PRN Reason: Anxiety Ibuprofen (Ibuprofen 600 Mg Tablet) 600 mg PO Q8H PRN PRN Reason: Pain, Mild (Pain Scale 1-3) Last Admin: 11/19/23 09:24 Dose: 600 mg Magnesium Hydroxide (Milk Of Magnesia 30 Ml Oral.Susp) 30 ml PO DAILY PRN PRN Reason: Constipation Methadone HCl (Methadone Hcl 20 Mg/2 Ml Oral.Conc) 40 mg PO DAILY [facility] Last Admin: 11/19/23 08:14 Dose: 40 mg Nicotine Polacrilex (Nicotine Polacrilex 2 Mg Gum) 4 mg BUCCAL Q2H PRN PRN Reason: Nicotine Cravings Last Admin: 11/08/23 08:56 Dose: 4 mg Risperidone (Risperidone 1 Mg Tablet) 1 mg PO BID [facility] Last Admin: 11/19/23 08:24 Dose: Not Given Senna (Sennosides 8.6 Mg Tablet) 17.2 mg PO DAILY [facility] Last Admin: 11/19/23 08:13 Dose: 17.2 mg Allergies Allergies Allergy/AdvReac Type Severity Reaction Status Date / Time No Known Allergies Allergy Verified 11/04/23 13:50 Assessment & Plan Assessment & Plan (1) Schizophrenia: Status: Acute Code(s): F20.9 - Schizophrenia, unspecified Assessment and Plan: Encourage patient to persevere with risperdal trial as she has not been on any one med long enough to gauge response. Also, headache may be caused by ENT issues. (2) Cocaine use disorder, moderate, dependence: Status: Acute Code(s): F14.20 - Cocaine dependence, uncomplicated Assessment and Plan: no new plans (3) Opioid use disorder, moderate, dependence: Status: Acute Code(s): F11.20 - Opioid dependence, uncomplicated Assessment and Plan: no new plans (4) Acute pharyngitis, unspecified: Status: Acute Code(s): J02.9 - Acute pharyngitis, unspecified Assessment and Plan: rapid strep ordered Plan Ms. Sow is a 43 year-old woman who self presented to [facility] [place] ED reporting increase depression and SI. She also presents with complex system of delusions including paranoid and somatic delusions. It appears she has been mostly untreated. She also presents with substance use disorder. she was started on methadone. We discussed risks, benefits and alternative treatment options, pt agreed to start risperidone. PLAN 1. Admit to M3, cv 15 minutes checks 2. start risperidone 1mg po BID 3. aftercare planning 4. obtain collateral information 11/09: Keeping to self. Not attending groups. Pt reports she did not take the risperidal this morning because she does not like the way it made her feel; pt was unable to elaborate on this. Discussed zyprexa;risks/benefits, pt agreed to trial medication. She also requested to start hydroxyzine d/t helping with her anxiety. Pt stated, I get overwhelmed with boredom. I just want to punch myself sometimes. I feel like someone is inside me . Pt reports auditory and visual hallucinations; pt stated, the voices make fun of me and I see shadows . Pt reports she would like to go to a substance abuse program when discharged from hospital. DC Risperidal DC Seroquel Start: Zyprexa 10mg PO bedtime Cogentin 0.5mg PO bedtime Hydroxyzine 25mg PO Q6HR PRN anxiety 11/10: Pt reports feeling okay today;pt stated, I have anxiety on and off. I wacked myself in the face yesterday. I don't want to hit myself, sometimes I get overwhelmed. I love myself. I no longer feel like anyone is trying to rape me but the voices keep telling me that someone is trying to kill and rape me and my family . Pt reports visual hallucinations of shadow people . pt denies any side effects from Zyprexa. denies SI/HI. Continue current tx plan. 11/11: Pt reports feeling anxious today; pt stated, coloring usually helps with my anxiety. I didn't hit myself yesterday which is good. The zyprexa seems to be helping . Continues to report auditory and visual hallucinations. Increased Zyprexa to 15mg PO bedtime Start: clonidine 0.1mg PO daily PRN anxiety Senna 17.2mg PO daily 11/12: DC hydroxyzine per pt request, otherwise continue current mgmt. 11/13: continue current mgmt. c/o [facility]. 11/14: Pt reports feeling mad today because I miss my kids. I have eleven. They're adopted. I've never been . Pt reports ongoing auditory and visual hallucinations. denies SI/HI. Discussed medications; pt reports she would be open to trying new medications such as a mood stabilizer. Pt reports she does not want to take Risperidal again because it gave me sleep paralysis . Will discuss possibility of HECK. 11/15: Pt reports feeling okay today; pt stated, I'm eating and gaining weight. it makes me happy . Pt reports ongoing auditory and visual hallucinations. denies SI/HI. T/W discussed risks/benefits of HECK; pt reports she would rather get an injection than take pills everyday . Pt stated, I know I'm schizophrenic. I think using substances really effected my mental health. I'm done with using . DC Zyprexa. Start: Abilify 5mg PO bedtime 11/16: Pt reports feeling anxious about the future ; pt stated, I don't want to live on the streets. I just want to feel better. I'm not going to use drugs anymore . denies any side effects from medication. Continues to report auditory and visual hallucinations. Pt reports not feeling well and requesting covid test. Pt reports she does not like how Trazodone makes her feel; requested to have it stopped. DC Trazodone Increase Seroquel to 100mg PO bedtime. Ordered Covid swab. 11/17: Pt reports feeling depressed today; pt stated, I miss my family. I saw my two years ago. I spoke to him before coming into the hospital. You guys can talk to him . 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 DC Seroquel DC Abilify Start: Risperidal 1mg PO BID 11/18: Pt reports feeling a little excited today; pt stated, I found out from a friend of mine that my family got green cards. I can't tell you more than that . Pt reports she can feel when one of my family members gets excited ; pt stated, maybe the risperidal opened up a window to excitement for me . denies SI/HI/VH. Reports voices have decreased today. Increase clonidine to 0.1mg PO BID PRN Reason for continued inpatient stay Substantial Risk for: rapid decompensation Time Spent With Patient Time: Total time managing care of this patient today ____ minutes.
[2023-11-19 13:20] LABS: IDNOW Serial# 08D9AD1C; Strep A Nucleic Acid Negative (Negative)
[2023-11-19] MEDS: cloNIDine HCL 0.1 MG TABLET PO (16:48)
[2023-11-19 16:50] VITALS: BP 116/74; PULSE 91
[2023-11-19 19:50] VITALS: BP 116/68; PULSE 83; RESP 16; TEMP 36.5; O2SAT 99
[2023-11-19] MEDS: Throat Lozenge, Medicated LOZENGE 1 LOZENGE MUCOUS MEM (20:34)
[2023-11-19] MEDS: Benztropine Mesylate 0.5 MG TABLET PO (20:34)
[2023-11-20 02:20] VITALS: BP 105/67; PULSE 85; O2SAT 99
[2023-11-20 02:22] VITALS: BP 105/67; PULSE 85; RESP 16; TEMP 36.6; O2SAT 100
[2023-11-20] MEDS: cloNIDine HCL 0.1 MG TABLET PO ×2 (02:22→16:48)
[2023-11-20 07:55] VITALS: BP 104/55; PULSE 70; RESP 16; TEMP 35.7; O2SAT 99
[2023-11-20] MEDS: Sennosides 8.6 MG TABLET 17.2 MG PO (08:18)
[2023-11-20] MEDS: methADONE HCl 20 MG/2 ML ORAL.CONC 40 MG PO (08:19)
--- NOTE | 2023-11-20 10:01 | P.PNPSI_ITS ---
Subjective Subjective Date of Service: 11/20/23 Reason For Visit: Crisis Subjective Notes: Conditional Voluntary Interim History: Patient was seen and discussed in rounds today. Records and plans were reviewed. She has been refusing the Risperdal even though it has been helpful with her auditory hallucinations. She attributes a lot of physical ailments, catching a cold etc. to the Risperdal. I tried to discuss that with her but she has her own views on it. She also feels that her methadone needs to be increase which she will discuss with her provider tomorrow. No signs or indications of withdrawals. Review of Systems Review of Systems Yes all other systems are reviewed and are negative Mental Status Exam Mental Status Exam Patient Appearance: Well Grooomed Patient Orientation: Person, Place, Time and Situation Level of Consciousness: Alert Patient Behavior: Appropriate Mood Description: Anxious Affect Description: Anxious Patient Cognition Impaired: No Ability to Follow Directions: Good Speech Pattern: Rapid Memory Description: Intact Hallucinations: Auditory and Visual (seeing animals but description is more consistent with illusions) Delusions: Not Present Thought Process: Intact Thought Content: positive for Preoccupation and positive for Suicidal Ideation (passive wish to ) Depressive Symptoms: Increased Anxiety and Unexplained Headaches Judgement: Fair Diagnostics Vital Signs (24Hr): Vital Signs - 24 hr 11/19/23 16:50 11/19/23 19:50 11/20/23 02:20 Temperature 97.7 F Pulse Rate 91 83 85 Respiratory Rate 16 Blood Pressure 116/74 116/68 105/67 Pulse Oximetry 99 99 Oxygen Delivery Method Room Air Room Air 11/20/23 02:22 11/20/23 07:55 Temperature 97.8 F 96.3 F L Pulse Rate 85 70 Respiratory Rate 16 16 Blood Pressure 105/67 104/55 L Pulse Oximetry 100 99 Oxygen Delivery Method Room Air Room Air BMI result Body Mass Index 21.1 Labs 11/04/23 14:43 11/04/23 14:43 Labs: Laboratory Results - last 48 hr 11/19/23 13:00 S. pyogenes GrpA ARNOLDO Negative Imaging Radiology Impressions: ITS Impressions Chest X-Ray 11/04/23 15:00 IMPRESSION: Unremarkable examination. Medications Medications Current Medications Acetaminophen (Acetaminophen 325 Mg Tablet) 650 mg PO Q6H PRN PRN Reason: Headache/Pain Mild Scale (1-3) Last Admin: 11/18/23 20:13 Dose: 650 mg Al Hydroxide/Mg Hydroxide (Magnesium Hydrox/Alum Hydrox 30 Ml Oral.Susp) 30 ml PO Q6H PRN PRN Reason: Heartburn/Nausea Last Admin: 11/17/23 14:04 Dose: 30 ml Benzocaine (Throat Lozenge, Medicated Lozenge) 1 lozenge MUCOUS MEM Q2H PRN PRN Reason: Sore Throat Last Admin: 11/19/23 20:34 Dose: 1 lozenge Benztropine Mesylate (Benztropine Mesylate 0.5 Mg Tablet) 0.5 mg PO BEDTIME [facility] Last Admin: 11/19/23 20:34 Dose: 0.5 mg Clonidine HCl (Clonidine Hcl 0.1 Mg Tablet) 0.1 mg PO BID PRN; Protocol PRN Reason: Anxiety Last Admin: 11/20/23 02:22 Dose: 0.1 mg Ibuprofen (Ibuprofen 600 Mg Tablet) 600 mg PO Q8H PRN PRN Reason: Pain, Mild (Pain Scale 1-3) Last Admin: 11/19/23 20:34 Dose: 600 mg Magnesium Hydroxide (Milk Of Magnesia 30 Ml Oral.Susp) 30 ml PO DAILY PRN PRN Reason: Constipation Methadone HCl (Methadone Hcl 20 Mg/2 Ml Oral.Conc) 40 mg PO DAILY [facility] Last Admin: 11/20/23 08:19 Dose: 40 mg Nicotine Polacrilex (Nicotine Polacrilex 2 Mg Gum) 4 mg BUCCAL Q2H PRN PRN Reason: Nicotine Cravings Last Admin: 11/08/23 08:56 Dose: 4 mg Risperidone (Risperidone 1 Mg Tablet) 1 mg PO BID [facility] Last Admin: 11/20/23 09:01 Dose: Not Given Senna (Sennosides 8.6 Mg Tablet) 17.2 mg PO DAILY [facility] Last Admin: 11/20/23 08:18 Dose: 17.2 mg Allergies Allergies Allergy/AdvReac Type Severity Reaction Status Date / Time fish derived [fish] AdvReac Anaphylaxis Verified 11/19/23 21:11 Assessment & Plan Assessment & Plan (1) Schizophrenia: Status: Acute Code(s): F20.9 - Schizophrenia, unspecified Assessment and Plan: Encourage patient to persevere with risperdal trial as she has not been on any one med long enough to gauge response. Also, headache may be caused by ENT issues. (2) Cocaine use disorder, moderate, dependence: Status: Acute Code(s): F14.20 - Cocaine dependence, uncomplicated Assessment and Plan: no new plans (3) Opioid use disorder, moderate, dependence: Status: Acute Code(s): F11.20 - Opioid dependence, uncomplicated Assessment and Plan: no new plans (4) Acute pharyngitis, unspecified: Status: Acute Code(s): J02.9 - Acute pharyngitis, unspecified Assessment and Plan: rapid strep ordered Plan Ms. Sow is a 43 year-old woman who self presented to [facility] [place] [facility] reporting increase depression and SI. She also presents with complex system of delusions including paranoid and somatic delusions. It appears she has been mostly untreated. She also presents with substance use disorder. she was started on methadone. We discussed risks, benefits and alternative treatment options, pt agreed to start risperidone. PLAN 1. Admit to M3, cv 15 minutes checks 2. start risperidone 1mg po BID 3. aftercare planning 4. obtain collateral information 11/09: Keeping to self. Not attending groups. Pt reports she did not take the risperidal this morning because she does not like the way it made her feel; pt was unable to elaborate on this. Discussed zyprexa;risks/benefits, pt agreed to trial medication. She also requested to start hydroxyzine d/t helping with her anxiety. Pt stated, I get overwhelmed with boredom. I just want to punch myself sometimes. I feel like someone is inside me . Pt reports auditory and visual hallucinations; pt stated, the voices make fun of me and I see shadows . Pt reports she would like to go to a substance abuse program when discharged from hospital. DC Risperidal DC Seroquel Start: Zyprexa 10mg PO bedtime Cogentin 0.5mg PO bedtime Hydroxyzine 25mg PO Q6HR PRN anxiety 11/10: Pt reports feeling okay today;pt stated, I have anxiety on and off. I wacked myself in the face yesterday. I don't want to hit myself, sometimes I get overwhelmed. I love myself. I no longer feel like anyone is trying to rape me but the voices keep telling me that someone is trying to kill and rape me and my family . Pt reports visual hallucinations of shadow people . pt denies any side effects from Zyprexa. denies SI/HI. Continue current tx plan. 11/11: Pt reports feeling anxious today; pt stated, coloring usually helps with my anxiety. I didn't hit myself yesterday which is good. The zyprexa seems to be helping . Continues to report auditory and visual hallucinations. Increased Zyprexa to 15mg PO bedtime Start: clonidine 0.1mg PO daily PRN anxiety Senna 17.2mg PO daily 11/12: DC hydroxyzine per pt request, otherwise continue current mgmt. 11/13: continue current mgmt. c/o [facility]. 11/14: Pt reports feeling mad today because I miss my kids. I have eleven. They're adopted. I've never been . Pt reports ongoing auditory and visual hallucinations. denies SI/HI. Discussed medications; pt reports she would be open to trying new medications such as a mood stabilizer. Pt reports she does not want to take Risperidal again because it gave me sleep paralysis . Will discuss possibility of HECK. 11/15: Pt reports feeling okay today; pt stated, I'm eating and gaining weight. it makes me happy . Pt reports ongoing auditory and visual hallucinations. denies SI/HI. T/W discussed risks/benefits of HECK; pt reports she would rather get an injection than take pills everyday . Pt stated, I know I'm schizophrenic. I think using substances really effected my mental health. I'm done with using . DC Zyprexa. Start: Abilify 5mg PO bedtime 11/16: Pt reports feeling anxious about the future ; pt stated, I don't want to live on the streets. I just want to feel better. I'm not going to use drugs anymore . denies any side effects from medication. Continues to report auditory and visual hallucinations. Pt reports not feeling well and requesting covid test. Pt reports she does not like how Trazodone makes her feel; requested to have it stopped. DC Trazodone Increase Seroquel to 100mg PO bedtime. Ordered Covid swab. 11/17: Pt reports feeling depressed today; pt stated, I miss my family. I saw my two years ago. I spoke to him before coming into the hospital. You guys can talk to him . 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 DC Seroquel RONEY Amaya Start: Risperidal 1mg PO BID 11/18: Pt reports feeling a little excited today; pt stated, I found out from a friend of mine that my family got green cards. I can't tell you more than that . Pt reports she can feel when one of my family members gets excited ; pt stated, maybe the risperidal opened up a window to excitement for me . denies SI/HI/VH. Reports voices have decreased today. Increase clonidine to 0.1mg PO BID PRN 11/20: Continue current plans and regimen Patient educated on: medication risk/benefits Reason for continued inpatient stay Substantial Risk for: med/psych decompensation Time Spent With Patient Time: Total time managing care of this patient today ____ minutes.
[2023-11-20 16:45] VITALS: BP 103/71; PULSE 75; RESP 20
[2023-11-20] MEDS: Ibuprofen 600 MG TABLET PO (16:48)
[2023-11-20 18:00] VITALS: BP 108/65; PULSE 73; RESP 18; TEMP 36.8; O2SAT 98
[2023-11-20] MEDS: Benztropine Mesylate 0.5 MG TABLET PO (21:53)
[2023-11-21] MEDS: cloNIDine HCL 0.1 MG TABLET PO ×2 (00:04→20:52)
[2023-11-21 00:05] VITALS: BP 110/54; PULSE 87
--- NOTE | 2023-11-21 02:10 | PC.NURSE ---
Sharita was noted to be mainly isolating throughout the evening. she refused HS Risperdal but did accept the HS cogentin. She requested clonidine at 0005 stating I'm starting to see things again can I have the clonidine patient spent approximately 1/2 an hour in the day room after clonidine and has appeared to be sleeping since 0100. continue to monitor for safety, continue Plan of Care
[2023-11-21 07:10] VITALS: BP 93/55; PULSE 74; RESP 16; TEMP 36.8; O2SAT 99
[2023-11-21] MEDS: methADONE HCl 20 MG/2 ML ORAL.CONC 40 MG PO (08:38)
--- NOTE | 2023-11-21 09:16 | HO.PSYCHPN ---
Subjective Subjective Date of Service: 11/21/23 Reason For Visit: Crisis Subjective Notes: Conditional Voluntary Interim History: Reviewed with . Patient reports feeling sad today d/t missing her family. Patient has been refusing Risperidal; pt stated, it was taking away my voices but I felt weird on it and I felt like I was dragging and had a headache . Pt continues to report auditory and visual hallucinations. denies SI/HI. Pt requested to be put back on Abilify. Start: Abilify 5mg PO bedtime Haldol 5mg PO BID PRN Medication Compliance: Intermittent Attending Groups: Intermittent Review of Systems Constitutional: Reports as per HPI Eyes: Reports as per HPI Reports as per HPI Cardiovascular: Reports as per HPI Respiratory: Reports as per HPI Gastrointestinal: Reports as per HPI Genitourinary: Reports as per HPI Musculoskeletal: Reports as per HPI Skin/Breast: Reports as per HPI Reports as per HPI Psychiatric: Reports as per HPI Endocrine: Reports as per HPI Hematologic/Lymphatic: Reports as per HPI Allergic/Immunologic: Reports as per HPI Mental Status Exam Mental Status Exam Narrative: Pt is alert and oriented; behavior is cooperative; dressed in casual attire; mood is described as sad ; eye contact appropriate; Speech is normal rate, volume and prosody and not pressured; thought process is organized, focused on somatic complaints. denies SI/HI. Reports auditory and visual hallucinations. Diagnostics Vital Signs (24Hr): Vital Signs - 24 hr 11/20/23 16:45 11/20/23 18:00 11/21/23 00:05 Temperature 98.2 F Pulse Rate 75 73 87 Respiratory Rate 20 18 Blood Pressure 103/71 108/65 110/54 L Pulse Oximetry 98 Oxygen Delivery Method Room Air 11/21/23 07:10 Temperature 98.2 F Pulse Rate 74 Respiratory Rate 16 Blood Pressure 93/55 L Pulse Oximetry 99 Oxygen Delivery Method Room Air BMI result Body Mass Index 21.1 Labs 11/04/23 14:43 11/04/23 14:43 Labs: Laboratory Results - last 48 hr 11/19/23 13:00 S. pyogenes GrpA ARNOLDO Negative Imaging Radiology Impressions: ITS Impressions Chest X-Ray 11/04/23 15:00 IMPRESSION: Unremarkable examination. Medications Medications Current Medications Acetaminophen (Acetaminophen 325 Mg Tablet) 650 mg PO Q6H PRN PRN Reason: Headache/Pain Mild Scale (1-3) Last Admin: 11/18/23 20:13 Dose: 650 mg Al Hydroxide/Mg Hydroxide (Magnesium Hydrox/Alum Hydrox 30 Ml Oral.Susp) 30 ml PO Q6H PRN PRN Reason: Heartburn/Nausea Last Admin: 11/17/23 14:04 Dose: 30 ml Benzocaine (Throat Lozenge, Medicated Lozenge) 1 lozenge MUCOUS MEM Q2H PRN PRN Reason: Sore Throat Last Admin: 11/19/23 20:34 Dose: 1 lozenge Benztropine Mesylate (Benztropine Mesylate 0.5 Mg Tablet) 0.5 mg PO BEDTIME [facility] Last Admin: 11/20/23 21:53 Dose: 0.5 mg Clonidine HCl (Clonidine Hcl 0.1 Mg Tablet) 0.1 mg PO BID PRN; Protocol PRN Reason: Anxiety Last Admin: 11/21/23 00:04 Dose: 0.1 mg Ibuprofen (Ibuprofen 600 Mg Tablet) 600 mg PO Q8H PRN PRN Reason: Pain, Mild (Pain Scale 1-3) Last Admin: 11/20/23 16:48 Dose: 600 mg Magnesium Hydroxide (Milk Of Magnesia 30 Ml Oral.Susp) 30 ml PO DAILY PRN PRN Reason: Constipation Methadone HCl (Methadone Hcl 20 Mg/2 Ml Oral.Conc) 40 mg PO DAILY [facility] Last Admin: 11/21/23 08:38 Dose: 40 mg Nicotine Polacrilex (Nicotine Polacrilex 2 Mg Gum) 4 mg BUCCAL Q2H PRN PRN Reason: Nicotine Cravings Last Admin: 11/08/23 08:56 Dose: 4 mg Risperidone (Risperidone 1 Mg Tablet) 1 mg PO BID [facility] Last Admin: 11/21/23 08:40 Dose: Not Given Senna (Sennosides 8.6 Mg Tablet) 17.2 mg PO DAILY [facility] Last Admin: 11/21/23 08:39 Dose: Not Given Allergies Allergies Allergy/AdvReac Type Severity Reaction Status Date / Time fish derived [fish] AdvReac Anaphylaxis Verified 11/19/23 21:11 Assessment & Plan Assessment & Plan (1) Schizophrenia: Status: Acute Code(s): F20.9 - Schizophrenia, unspecified Assessment and Plan: Encourage patient to persevere with risperdal trial as she has not been on any one med long enough to gauge response. Also, headache may be caused by ENT issues. (2) Cocaine use disorder, moderate, dependence: Status: Acute Code(s): F14.20 - Cocaine dependence, uncomplicated Assessment and Plan: no new plans (3) Opioid use disorder, moderate, dependence: Status: Acute Code(s): F11.20 - Opioid dependence, uncomplicated Assessment and Plan: no new plans (4) Acute pharyngitis, unspecified: Status: Acute Code(s): J02.9 - Acute pharyngitis, unspecified Assessment and Plan: rapid strep ordered Plan Ms. Sow is a 43 year-old woman who self presented to [facility] ED reporting increase depression and SI. She also presents with complex system of delusions including paranoid and somatic delusions. It appears she has been mostly untreated. She also presents with substance use disorder. she was started on methadone. We discussed risks, benefits and alternative treatment options, pt agreed to start risperidone. PLAN 1. Admit to M3, cv 15 minutes checks 2. start risperidone 1mg po BID 3. aftercare planning 4. obtain collateral information 11/09: Keeping to self. Not attending groups. Pt reports she did not take the risperidal this morning because she does not like the way it made her feel; pt was unable to elaborate on this. Discussed zyprexa;risks/benefits, pt agreed to trial medication. She also requested to start hydroxyzine d/t helping with her anxiety. Pt stated, I get overwhelmed with boredom. I just want to punch myself sometimes. I feel like someone is inside me . Pt reports auditory and visual hallucinations; pt stated, the voices make fun of me and I see shadows . Pt reports she would like to go to a substance abuse program when discharged from hospital. DC Risperidal DC Seroquel Start: Zyprexa 10mg PO bedtime Cogentin 0.5mg PO bedtime Hydroxyzine 25mg PO Q6HR PRN anxiety 11/10: Pt reports feeling okay today;pt stated, I have anxiety on and off. I wacked myself in the face yesterday. I don't want to hit myself, sometimes I get overwhelmed. I love myself. I no longer feel like anyone is trying to rape me but the voices keep telling me that someone is trying to kill and rape me and my family . Pt reports visual hallucinations of shadow people . pt denies any side effects from Zyprexa. denies SI/HI. Continue current tx plan. 11/11: Pt reports feeling anxious today; pt stated, coloring usually helps with my anxiety. I didn't hit myself yesterday which is good. The zyprexa seems to be helping . Continues to report auditory and visual hallucinations. Increased Zyprexa to 15mg PO bedtime Start: clonidine 0.1mg PO daily PRN anxiety Senna 17.2mg PO daily 11/12: DC hydroxyzine per pt request, otherwise continue current mgmt. 11/13: continue current mgmt. c/o [facility]. 11/14: Pt reports feeling mad today because I miss my kids. I have eleven. They're adopted. I've never been . Pt reports ongoing auditory and visual hallucinations. denies SI/HI. Discussed medications; pt reports she would be open to trying new medications such as a mood stabilizer. Pt reports she does not want to take Risperidal again because it gave me sleep paralysis . Will discuss possibility of HECK. 11/15: Pt reports feeling okay today; pt stated, I'm eating and gaining weight. it makes me happy . Pt reports ongoing auditory and visual hallucinations. denies SI/HI. T/W discussed risks/benefits of HECK; pt reports she would rather get an injection than take pills everyday . Pt stated, I know I'm schizophrenic. I think using substances really effected my mental health. I'm done with using . DC Zyprexa. Start: Abilify 5mg PO bedtime 11/16: Pt reports feeling anxious about the future ; pt stated, I don't want to live on the streets. I just want to feel better. I'm not going to use drugs anymore . denies any side effects from medication. Continues to report auditory and visual hallucinations. Pt reports not feeling well and requesting covid test. Pt reports she does not like how Trazodone makes her feel; requested to have it stopped. DC Trazodone Increase Seroquel to 100mg PO bedtime. Ordered Covid swab. 11/17: Pt reports feeling depressed today; pt stated, I miss my family. I saw my two years ago. I spoke to him before coming into the hospital. You guys can talk to him . 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 DC Seroquel DC Abilify Start: Risperidal 1mg PO BID 11/18: Pt reports feeling a little excited today; pt stated, I found out from a friend of mine that my family got green cards. I can't tell you more than that . Pt reports she can feel when one of my family members gets excited ; pt stated, maybe the risperidal opened up a window to excitement for me . denies SI/HI/VH. Reports voices have decreased today. Increase clonidine to 0.1mg PO BID PRN 11/20: Continue current plans and regimen 11/21: Patient reports feeling sad today d/t missing her family. Patient has been refusing Risperidal; pt stated, it was taking away my voices but I felt weird on it and I felt like I was dragging and had a headache . Pt continues to report auditory and visual hallucinations. denies SI/HI. Pt requested to be put back on Abilify. Start: Abilify 5mg PO bedtime Haldol 5mg PO BID PRN Patient educated on: diagnosis and medication risk/benefits Informed Consent: understands Reason for continued inpatient stay Substantial Risk for: med/psych decompensation Time Spent With Patient Time: Total time managing care of this patient today _20___ minutes.
[2023-11-21] MEDS: Mineral Oil/Petrolatum,White 106 GM Tube 1 APPL TOPICAL (12:09)
[2023-11-21] MEDS: HaloperidoL 5 MG TABLET PO (16:17)
[2023-11-21 20:05] VITALS: BP 115/55; PULSE 72; RESP 16; TEMP 36.5; O2SAT 99
[2023-11-21] MEDS: Benztropine Mesylate 0.5 MG TABLET PO (20:52)
[2023-11-21] MEDS: ARIPiprazole 5 MG TABLET PO (20:52)
[2023-11-22 08:16] VITALS: BP 104/63; PULSE 63; RESP 16; TEMP 36.7; O2SAT 97
--- NOTE | 2023-11-22 08:39 | HO.PSYCHPN ---
Subjective Subjective Date of Service: 11/22/23 Reason For Visit: Crisis Subjective Notes: Conditional Voluntary Interim History: Reviewed with . Pt reports feeling anxious today; pt stated, I want to go to a substance abuse program. I don't want to be on the streets anymore. I keep worrying about tomorrow and then it makes me anxious and depressed . Pt reports she really likes the Abilify because I haven't had voices today ; pt continues to report visual hallucinations of faces . denies SI/HI. Medication Compliance: Yes Side effects from medications: No Attending Groups: Intermittent Review of Systems Constitutional: Reports as per HPI Eyes: Reports as per HPI Reports as per HPI Cardiovascular: Reports as per HPI Respiratory: Reports as per HPI Gastrointestinal: Reports as per HPI Genitourinary: Reports as per HPI Musculoskeletal: Reports as per HPI Skin/Breast: Reports as per HPI Reports as per HPI Psychiatric: Reports as per HPI Endocrine: Reports as per HPI Hematologic/Lymphatic: Reports as per HPI Allergic/Immunologic: Reports as per HPI Mental Status Exam Mental Status Exam Narrative: Pt is alert and oriented; behavior is cooperative; dressed in casual attire; mood is described as anxious ; eye contact appropriate; Speech is normal rate, volume and prosody and not pressured; thought process is organized, future oriented. denies SI/HI/AH. Reports visual hallucinations. Diagnostics Vital Signs (24Hr): Vital Signs - 24 hr 11/21/23 20:05 11/22/23 08:16 Temperature 97.7 F 98.1 F Pulse Rate 72 63 Respiratory Rate 16 16 Blood Pressure 115/55 L 104/63 Pulse Oximetry 99 97 Oxygen Delivery Method Room Air Room Air BMI result Body Mass Index 21.1 Labs 11/04/23 14:43 11/04/23 14:43 Imaging Radiology Impressions: ITS Impressions Chest X-Ray 11/04/23 15:00 IMPRESSION: Unremarkable examination. Medications Medications Current Medications Acetaminophen (Acetaminophen 325 Mg Tablet) 650 mg PO Q6H PRN PRN Reason: Headache/Pain Mild Scale (1-3) Last Admin: 11/18/23 20:13 Dose: 650 mg Al Hydroxide/Mg Hydroxide (Magnesium Hydrox/Alum Hydrox 30 Ml Oral.Susp) 30 ml PO Q6H PRN PRN Reason: Heartburn/Nausea Last Admin: 11/17/23 14:04 Dose: 30 ml Aripiprazole (Aripiprazole 5 Mg Tablet) 5 mg PO BEDTIME [facility] Last Admin: 11/21/23 20:52 Dose: 5 mg Benzocaine (Throat Lozenge, Medicated Lozenge) 1 lozenge MUCOUS MEM Q2H PRN PRN Reason: Sore Throat Last Admin: 11/19/23 20:34 Dose: 1 lozenge Benztropine Mesylate (Benztropine Mesylate 0.5 Mg Tablet) 0.5 mg PO BEDTIME [facility] Last Admin: 11/21/23 20:52 Dose: 0.5 mg Clonidine HCl (Clonidine Hcl 0.1 Mg Tablet) 0.1 mg PO BID PRN; Protocol PRN Reason: Anxiety Last Admin: 11/21/23 20:52 Dose: 0.1 mg Haloperidol (Haloperidol 5 Mg Tablet) 5 mg PO BID PRN PRN Reason: Psychosis Last Admin: 11/21/23 16:17 Dose: 5 mg Ibuprofen (Ibuprofen 600 Mg Tablet) 600 mg PO Q8H PRN PRN Reason: Pain, Mild (Pain Scale 1-3) Last Admin: 11/20/23 16:48 Dose: 600 mg Magnesium Hydroxide (Milk Of Magnesia 30 Ml Oral.Susp) 30 ml PO DAILY PRN PRN Reason: Constipation Methadone HCl (Methadone Hcl 20 Mg/2 Ml Oral.Conc) 40 mg PO DAILY [facility] Last Admin: 11/21/23 08:38 Dose: 40 mg Multi-Ingred Cream/Lotion/Oil/Oint (Mineral Oil/Petrolatum,White 106 Gm Tube) 1 appl TOPICAL BID [facility]; Protocol Last Admin: 11/21/23 21:44 Dose: Not Given Nicotine Polacrilex (Nicotine Polacrilex 2 Mg Gum) 4 mg BUCCAL Q2H PRN PRN Reason: Nicotine Cravings Last Admin: 11/08/23 08:56 Dose: 4 mg Senna (Sennosides 8.6 Mg Tablet) 17.2 mg PO DAILY PRN PRN Reason: Constipation Allergies Allergies Allergy/AdvReac Type Severity Reaction Status Date / Time fish derived [fish] AdvReac Anaphylaxis Verified 11/19/23 21:11 Assessment & Plan Assessment & Plan (1) Schizophrenia: Status: Acute Code(s): F20.9 - Schizophrenia, unspecified Assessment and Plan: Encourage patient to persevere with risperdal trial as she has not been on any one med long enough to gauge response. Also, headache may be caused by ENT issues. (2) Cocaine use disorder, moderate, dependence: Status: Acute Code(s): F14.20 - Cocaine dependence, uncomplicated (3) Opioid use disorder, moderate, dependence: Status: Acute Code(s): F11.20 - Opioid dependence, uncomplicated (4) Acute pharyngitis, unspecified: Status: Acute Code(s): J02.9 - Acute pharyngitis, unspecified Assessment and Plan: rapid strep ordered Plan Ms. Sow is a 43 year-old woman who self presented to [facility] ED reporting increase depression and SI. She also presents with complex system of delusions including paranoid and somatic delusions. It appears she has been mostly untreated. She also presents with substance use disorder. she was started on methadone. We discussed risks, benefits and alternative treatment options, pt agreed to start risperidone. PLAN 1. Admit to M3, cv 15 minutes checks 2. start risperidone 1mg po BID 3. aftercare planning 4. obtain collateral information 11/09: Keeping to self. Not attending groups. Pt reports she did not take the risperidal this morning because she does not like the way it made her feel; pt was unable to elaborate on this. Discussed zyprexa;risks/benefits, pt agreed to trial medication. She also requested to start hydroxyzine d/t helping with her anxiety. Pt stated, I get overwhelmed with boredom. I just want to punch myself sometimes. I feel like someone is inside me . Pt reports auditory and visual hallucinations; pt stated, the voices make fun of me and I see shadows . Pt reports she would like to go to a substance abuse program when discharged from hospital. DC Risperidal DC Seroquel Start: Zyprexa 10mg PO bedtime Cogentin 0.5mg PO bedtime Hydroxyzine 25mg PO Q6HR PRN anxiety 11/10: Pt reports feeling okay today;pt stated, I have anxiety on and off. I wacked myself in the face yesterday. I don't want to hit myself, sometimes I get overwhelmed. I love myself. I no longer feel like anyone is trying to rape me but the voices keep telling me that someone is trying to kill and rape me and my family . Pt reports visual hallucinations of shadow people . pt denies any side effects from Zyprexa. denies SI/HI. Continue current tx plan. 11/11: Pt reports feeling anxious today; pt stated, coloring usually helps with my anxiety. I didn't hit myself yesterday which is good. The zyprexa seems to be helping . Continues to report auditory and visual hallucinations. Increased Zyprexa to 15mg PO bedtime Start: clonidine 0.1mg PO daily PRN anxiety Senna 17.2mg PO daily 11/12: DC hydroxyzine per pt request, otherwise continue current mgmt. 11/13: continue current mgmt. c/o [facility]. 11/14: Pt reports feeling mad today because I miss my kids. I have eleven. They're adopted. I've never been . Pt reports ongoing auditory and visual hallucinations. denies SI/HI. Discussed medications; pt reports she would be open to trying new medications such as a mood stabilizer. Pt reports she does not want to take Risperidal again because it gave me sleep paralysis . Will discuss possibility of HECK. 11/15: Pt reports feeling okay today; pt stated, I'm eating and gaining weight. it makes me happy . Pt reports ongoing auditory and visual hallucinations. denies SI/HI. T/W discussed risks/benefits of HECK; pt reports she would rather get an injection than take pills everyday . Pt stated, I know I'm schizophrenic. I think using substances really effected my mental health. I'm done with using . DC Zyprexa. Start: Abilify 5mg PO bedtime 11/16: Pt reports feeling anxious about the future ; pt stated, I don't want to live on the streets. I just want to feel better. I'm not going to use drugs anymore . denies any side effects from medication. Continues to report auditory and visual hallucinations. Pt reports not feeling well and requesting covid test. Pt reports she does not like how Trazodone makes her feel; requested to have it stopped. DC Trazodone Increase Seroquel to 100mg PO bedtime. Ordered Covid swab. 11/17: Pt reports feeling depressed today; pt stated, I miss my family. I saw my two years ago. I spoke to him before coming into the hospital. You guys can talk to him . 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 DC Seroquel DC Abilify Start: Risperidal 1mg PO BID 11/18: Pt reports feeling a little excited today; pt stated, I found out from a friend of mine that my family got green cards. I can't tell you more than that . Pt reports she can feel when one of my family members gets excited ; pt stated, maybe the risperidal opened up a window to excitement for me . denies SI/HI/VH. Reports voices have decreased today. Increase clonidine to 0.1mg PO BID PRN 11/20: Continue current plans and regimen 11/21: Patient reports feeling sad today d/t missing her family. Patient has been refusing Risperidal; pt stated, it was taking away my voices but I felt weird on it and I felt like I was dragging and had a headache . Pt continues to report auditory and visual hallucinations. denies SI/HI. Pt requested to be put back on Abilify. Start: Abilify 5mg PO bedtime Haldol 5mg PO BID PRN 11/22: Pt reports feeling anxious today; pt stated, I want to go to a substance abuse program. I don't want to be on the streets anymore. I keep worrying about tomorrow and then it makes me anxious and depressed . Pt reports she really likes the Abilify because I haven't had voices today ; pt continues to report visual hallucinations of faces . denies SI/HI. Patient educated on: diagnosis, medication risk/benefits, substance abuse and therapeutic strategies Informed Consent: understands Reason for continued inpatient stay Substantial Risk for: med/psych decompensation Time Spent With Patient Time: Total time managing care of this patient today _20___ minutes.
[2023-11-22] MEDS: methADONE HCl 20 MG/2 ML ORAL.CONC 40 MG PO (09:07)
[2023-11-22] MEDS: Mineral Oil/Petrolatum,White 106 GM Tube 1 APPL TOPICAL ×2 (09:07→22:02)
[2023-11-22] MEDS: HaloperidoL 5 MG TABLET PO (14:31)
[2023-11-22] MEDS: Ibuprofen 600 MG TABLET PO ×2 (15:41→22:01)
[2023-11-22] MEDS: cloNIDine HCL 0.1 MG TABLET PO (15:42)
[2023-11-22 19:51] VITALS: BP 110/57; PULSE 73; RESP 16; TEMP 36.6; O2SAT 99
[2023-11-22] MEDS: ARIPiprazole 5 MG TABLET PO (22:01)
[2023-11-22] MEDS: Benztropine Mesylate 0.5 MG TABLET PO (22:01)
[2023-11-23 07:45] VITALS: BP 103/65; PULSE 73; RESP 14; TEMP 36.7; O2SAT 98
--- NOTE | 2023-11-23 08:24 | P.PNPSI_ITS ---
Subjective Subjective Date of Service: 11/23/23 Reason For Visit: Crisis Subjective Notes: Conditional Voluntary Interim History: Reviewed with . Pt is requesting an increase in Abilify. Dose increased to 10mg PO daily. Pt stated, the clonidine is working great for my anxiety and my depression is getting better. I'm going to try to go to more groups . She report sleeping well last night. denies SI/HI/AH. Continues to report visual hallucinations. Medication Compliance: Yes Side effects from medications: No Attending Groups: Yes Review of Systems Constitutional: Reports as per HPI Eyes: Reports as per HPI Reports as per HPI Cardiovascular: Reports as per HPI Respiratory: Reports as per HPI Gastrointestinal: Reports as per HPI Genitourinary: Reports as per HPI Musculoskeletal: Reports as per HPI Skin/Breast: Reports as per HPI Reports as per HPI Psychiatric: Reports as per HPI Endocrine: Reports as per HPI Hematologic/Lymphatic: Reports as per HPI Allergic/Immunologic: Reports as per HPI Mental Status Exam Mental Status Exam Narrative: Pt is alert and oriented; behavior is cooperative; dressed in casual attire; mood is described as okay ; eye contact appropriate; Speech is normal rate, volume and prosody and not pressured; thought process is organized, future oriented. denies SI/HI/AH. Reports visual hallucinations. Diagnostics Vital Signs (24Hr): Vital Signs - 24 hr 11/22/23 19:51 Temperature 97.9 F Pulse Rate 73 Respiratory Rate 16 Blood Pressure 110/57 L Pulse Oximetry 99 Oxygen Delivery Method Room Air BMI result Body Mass Index 21.1 Labs 11/04/23 14:43 11/04/23 14:43 Imaging Radiology Impressions: ITS Impressions Chest X-Ray 11/04/23 15:00 IMPRESSION: Unremarkable examination. Medications Medications Current Medications Acetaminophen (Acetaminophen 325 Mg Tablet) 650 mg PO Q6H PRN PRN Reason: Headache/Pain Mild Scale (1-3) Last Admin: 11/18/23 20:13 Dose: 650 mg Al Hydroxide/Mg Hydroxide (Magnesium Hydrox/Alum Hydrox 30 Ml Oral.Susp) 30 ml PO Q6H PRN PRN Reason: Heartburn/Nausea Last Admin: 11/17/23 14:04 Dose: 30 ml Aripiprazole (Aripiprazole 5 Mg Tablet) 5 mg PO BEDTIME WOODROW Last Admin: 11/22/23 22:01 Dose: 5 mg Benzocaine (Throat Lozenge, Medicated Lozenge) 1 lozenge MUCOUS MEM Q2H PRN PRN Reason: Sore Throat Last Admin: 11/19/23 20:34 Dose: 1 lozenge Benztropine Mesylate (Benztropine Mesylate 0.5 Mg Tablet) 0.5 mg PO BEDTIME WOODROW Last Admin: 11/22/23 22:01 Dose: 0.5 mg Clonidine HCl (Clonidine Hcl 0.1 Mg Tablet) 0.1 mg PO BID PRN; Protocol PRN Reason: Anxiety Last Admin: 11/22/23 15:42 Dose: 0.1 mg Haloperidol (Haloperidol 5 Mg Tablet) 5 mg PO BID PRN PRN Reason: Psychosis Last Admin: 11/22/23 14:31 Dose: 5 mg Ibuprofen (Ibuprofen 600 Mg Tablet) 600 mg PO Q6H PRN PRN Reason: tooth pain Last Admin: 11/22/23 22:01 Dose: 600 mg Magnesium Hydroxide (Milk Of Magnesia 30 Ml Oral.Susp) 30 ml PO DAILY PRN PRN Reason: Constipation Methadone HCl (Methadone Hcl 20 Mg/2 Ml Oral.Conc) 40 mg PO DAILY ON LICENSE OF [facility] Last Admin: 11/22/23 09:07 Dose: 40 mg Multi-Ingred Cream/Lotion/Oil/Oint (Mineral Oil/Petrolatum,White 106 Gm Tube) 1 appl TOPICAL BID ON LICENSE OF [facility]; Protocol Last Admin: 11/22/23 22:02 Dose: 1 appl Nicotine Polacrilex (Nicotine Polacrilex 2 Mg Gum) 4 mg BUCCAL Q2H PRN PRN Reason: Nicotine Cravings Last Admin: 11/08/23 08:56 Dose: 4 mg Senna (Sennosides 8.6 Mg Tablet) 17.2 mg PO DAILY PRN PRN Reason: Constipation Allergies Allergies Allergy/AdvReac Type Severity Reaction Status Date / Time fish derived [fish] AdvReac Anaphylaxis Verified 11/19/23 21:11 Assessment & Plan Assessment & Plan (1) Schizophrenia: Status: Acute Code(s): F20.9 - Schizophrenia, unspecified Assessment and Plan: Encourage patient to persevere with risperdal trial as she has not been on any one med long enough to gauge response. Also, headache may be caused by ENT issues. (2) Cocaine use disorder, moderate, dependence: Status: Acute Code(s): F14.20 - Cocaine dependence, uncomplicated (3) Opioid use disorder, moderate, dependence: Status: Acute Code(s): F11.20 - Opioid dependence, uncomplicated (4) Acute pharyngitis, unspecified: Status: Acute Code(s): J02.9 - Acute pharyngitis, unspecified Assessment and Plan: rapid strep ordered Plan Ms. Sow is a 43 year-old woman who self presented to [facility] reporting increase depression and SI. She also presents with complex system of delusions including paranoid and somatic delusions. It appears she has been mostly untreated. She also presents with substance use disorder. she was started on methadone. We discussed risks, benefits and alternative treatment options, pt agreed to start risperidone. PLAN 1. Admit to M3, cv 15 minutes checks 2. start risperidone 1mg po BID 3. aftercare planning 4. obtain collateral information 11/09: Keeping to self. Not attending groups. Pt reports she did not take the risperidal this morning because she does not like the way it made her feel; pt was unable to elaborate on this. Discussed zyprexa;risks/benefits, pt agreed to trial medication. She also requested to start hydroxyzine d/t helping with her anxiety. Pt stated, I get overwhelmed with boredom. I just want to punch myself sometimes. I feel like someone is inside me . Pt reports auditory and visual hallucinations; pt stated, the voices make fun of me and I see shadows . Pt reports she would like to go to a substance abuse program when discharged from hospital. DC Risperidal DC Seroquel Start: Zyprexa 10mg PO bedtime Cogentin 0.5mg PO bedtime Hydroxyzine 25mg PO Q6HR PRN anxiety 11/10: Pt reports feeling okay today;pt stated, I have anxiety on and off. I wacked myself in the face yesterday. I don't want to hit myself, sometimes I get overwhelmed. I love myself. I no longer feel like anyone is trying to rape me but the voices keep telling me that someone is trying to kill and rape me and my family . Pt reports visual hallucinations of shadow people . pt denies any side effects from Zyprexa. denies SI/HI. Continue current tx plan. 11/11: Pt reports feeling anxious today; pt stated, coloring usually helps with my anxiety. I didn't hit myself yesterday which is good. The zyprexa seems to be helping . Continues to report auditory and visual hallucinations. Increased Zyprexa to 15mg PO bedtime Start: clonidine 0.1mg PO daily PRN anxiety Senna 17.2mg PO daily 11/12: DC hydroxyzine per pt request, otherwise continue current mgmt. 11/13: continue current mgmt. c/o [facility]. 11/14: Pt reports feeling mad today because I miss my kids. I have eleven. They're adopted. I've never been . Pt reports ongoing auditory and visual hallucinations. denies SI/HI. Discussed medications; pt reports she would be open to trying new medications such as a mood stabilizer. Pt reports she does not want to take Risperidal again because it gave me sleep paralysis . Will discuss possibility of HECK. 11/15: Pt reports feeling okay today; pt stated, I'm eating and gaining weight. it makes me happy . Pt reports ongoing auditory and visual hallucinations. denies SI/HI. T/W discussed risks/benefits of HECK; pt reports she would rather get an injection than take pills everyday . Pt stated, I know I'm schizophrenic. I think using substances really effected my mental health. I'm done with using . DC Zyprexa. Start: Abilify 5mg PO bedtime 11/16: Pt reports feeling anxious about the future ; pt stated, I don't want to live on the streets. I just want to feel better. I'm not going to use drugs anymore . denies any side effects from medication. Continues to report auditory and visual hallucinations. Pt reports not feeling well and requesting covid test. Pt reports she does not like how Trazodone makes her feel; requested to have it stopped. DC Trazodone Increase Seroquel to 100mg PO bedtime. Ordered Covid swab. 11/17: Pt reports feeling depressed today; pt stated, I miss my family. I saw my two years ago. I spoke to him before coming into the hospital. You guys can talk to him . 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 DC Seroquel DC Abilify Start: Risperidal 1mg PO BID 11/18: Pt reports feeling a little excited today; pt stated, I found out from a friend of mine that my family got green cards. I can't tell you more than that . Pt reports she can feel when one of my family members gets excited ; pt stated, maybe the risperidal opened up a window to excitement for me . denies SI/HI/VH. Reports voices have decreased today. Increase clonidine to 0.1mg PO BID PRN 11/20: Continue current plans and regimen 11/21: Patient reports feeling sad today d/t missing her family. Patient has been refusing Risperidal; pt stated, it was taking away my voices but I felt weird on it and I felt like I was dragging and had a headache . Pt continues to report auditory and visual hallucinations. denies SI/HI. Pt requested to be put back on Abilify. Start: Abilify 5mg PO bedtime Haldol 5mg PO BID PRN 11/22: Pt reports feeling anxious today; pt stated, I want to go to a substance abuse program. I don't want to be on the streets anymore. I keep worrying about tomorrow and then it makes me anxious and depressed . Pt reports she really likes the Abilify because I haven't had voices today ; pt continues to report visual hallucinations of faces . denies SI/HI. 11/23: Pt is requesting an increase in Abilify. Dose increased to 10mg PO daily. Pt stated, the clonidine is working great for my anxiety and my depression is getting better. I'm going to try to go to more groups . She report sleeping well last night. denies SI/HI/AH. Continues to report visual hallucinations. Reason for continued inpatient stay Substantial Risk for: med/psych decompensation Time Spent With Patient Time: Total time managing care of this patient today ____ minutes.
[2023-11-23] MEDS: methADONE HCl 20 MG/2 ML ORAL.CONC 40 MG PO (08:36)
[2023-11-23] MEDS: Mineral Oil/Petrolatum,White 106 GM Tube 1 APPL TOPICAL ×2 (09:33→21:38)
[2023-11-23] MEDS: Ibuprofen 600 MG TABLET PO ×2 (09:33→18:41)
[2023-11-23] MEDS: ARIPiprazole 10 MG TABLET PO (12:39)
[2023-11-23 18:39] VITALS: BP 116/72; PULSE 84
[2023-11-23] MEDS: cloNIDine HCL 0.1 MG TABLET PO (18:41)
[2023-11-23] MEDS: Benztropine Mesylate 0.5 MG TABLET PO (21:38)
[2023-11-24 04:06] VITALS: BP 102/70; PULSE 80
[2023-11-24] MEDS: Throat Lozenge, Medicated LOZENGE 1 LOZENGE MUCOUS MEM (04:08)
[2023-11-24] MEDS: cloNIDine HCL 0.1 MG TABLET PO ×2 (04:08→20:48)
[2023-11-24 07:00] VITALS: BMI 20.7
[2023-11-24 07:43] VITALS: BP 86/64; PULSE 73; RESP 14; TEMP 36.6; O2SAT 98
[2023-11-24 08:30] VITALS: BP 119/73; PULSE 73
[2023-11-24] MEDS: ARIPiprazole 10 MG TABLET PO (08:30)
[2023-11-24] MEDS: methADONE HCl 20 MG/2 ML ORAL.CONC 40 MG PO (08:30)
[2023-11-24] MEDS: Mineral Oil/Petrolatum,White 106 GM Tube 1 APPL TOPICAL (08:32)
--- NOTE | 2023-11-24 08:55 | HO.PSYCHPN ---
Subjective Subjective Date of Service: 11/24/23 Reason For Visit: Crisis Subjective Notes: Conditional Voluntary Interim History: Reviewed with . Pt reports feeling good today; pt stated, I feel better on the Abilify. I'm hoping to get into a CSS . denies SI/HI/VH/AH. Medication Compliance: Yes Side effects from medications: No Attending Groups: Intermittent Review of Systems Constitutional: Reports as per HPI Eyes: Reports as per HPI Reports as per HPI Cardiovascular: Reports as per HPI Respiratory: Reports as per HPI Gastrointestinal: Reports as per HPI Genitourinary: Reports as per HPI Musculoskeletal: Reports as per HPI Skin/Breast: Reports as per HPI Reports as per HPI Psychiatric: Reports as per HPI Endocrine: Reports as per HPI Hematologic/Lymphatic: Reports as per HPI Allergic/Immunologic: Reports as per HPI Mental Status Exam Mental Status Exam Narrative: Pt is alert and oriented; behavior is cooperative; dressed in casual attire; mood is described as okay ; eye contact appropriate; Speech is normal rate, volume and prosody and not pressured; thought process is organized, future oriented. denies SI/HI/AH/VH. Diagnostics Vital Signs (24Hr): Vital Signs - 24 hr 11/23/23 18:39 11/24/23 04:06 11/24/23 07:43 Temperature 97.9 F Pulse Rate 84 80 73 Respiratory Rate 14 Blood Pressure 116/72 102/70 86/64 L Pulse Oximetry 98 Oxygen Delivery Method Room Air BMI result Body Mass Index 21.1 Labs 11/04/23 14:43 11/04/23 14:43 Imaging Radiology Impressions: ITS Impressions Chest X-Ray 11/04/23 15:00 IMPRESSION: Unremarkable examination. Medications Medications Current Medications Acetaminophen (Acetaminophen 325 Mg Tablet) 650 mg PO Q6H PRN PRN Reason: Headache/Pain Mild Scale (1-3) Last Admin: 11/18/23 20:13 Dose: 650 mg Al Hydroxide/Mg Hydroxide (Magnesium Hydrox/Alum Hydrox 30 Ml Oral.Susp) 30 ml PO Q6H PRN PRN Reason: Heartburn/Nausea Last Admin: 11/17/23 14:04 Dose: 30 ml Aripiprazole (Aripiprazole 10 Mg Tablet) 10 mg PO DAILY WOODROW Last Admin: 11/24/23 08:30 Dose: 10 mg Benzocaine (Throat Lozenge, Medicated Lozenge) 1 lozenge MUCOUS MEM Q2H PRN PRN Reason: Sore Throat Last Admin: 11/24/23 04:08 Dose: 1 lozenge Benztropine Mesylate (Benztropine Mesylate 0.5 Mg Tablet) 0.5 mg PO BEDTIME WOODROW Last Admin: 11/23/23 21:38 Dose: 0.5 mg Clonidine HCl (Clonidine Hcl 0.1 Mg Tablet) 0.1 mg PO BID PRN; Protocol PRN Reason: Anxiety Last Admin: 11/24/23 04:08 Dose: 0.1 mg Haloperidol (Haloperidol 5 Mg Tablet) 5 mg PO BID PRN PRN Reason: Psychosis Last Admin: 11/22/23 14:31 Dose: 5 mg Ibuprofen (Ibuprofen 600 Mg Tablet) 600 mg PO Q6H PRN PRN Reason: tooth pain Last Admin: 11/23/23 18:41 Dose: 600 mg Magnesium Hydroxide (Milk Of Magnesia 30 Ml Oral.Susp) 30 ml PO DAILY PRN PRN Reason: Constipation Methadone HCl (Methadone Hcl 20 Mg/2 Ml Oral.Conc) 40 mg PO DAILY WOODROW Last Admin: 11/24/23 08:30 Dose: 40 mg Multi-Ingred Cream/Lotion/Oil/Oint (Mineral Oil/Petrolatum,White 106 Gm Tube) 1 appl TOPICAL BID [facility]; Protocol Last Admin: 11/24/23 08:32 Dose: 1 appl Nicotine Polacrilex (Nicotine Polacrilex 2 Mg Gum) 4 mg BUCCAL Q2H PRN PRN Reason: Nicotine Cravings Last Admin: 11/08/23 08:56 Dose: 4 mg Senna (Sennosides 8.6 Mg Tablet) 17.2 mg PO DAILY PRN PRN Reason: Constipation Allergies Allergies Allergy/AdvReac Type Severity Reaction Status Date / Time fish derived [fish] AdvReac Anaphylaxis Verified 11/19/23 21:11 Assessment & Plan Assessment & Plan (1) Schizophrenia: Status: Acute Code(s): F20.9 - Schizophrenia, unspecified Assessment and Plan: Encourage patient to persevere with risperdal trial as she has not been on any one med long enough to gauge response. Also, headache may be caused by ENT issues. (2) Cocaine use disorder, moderate, dependence: Status: Acute Code(s): F14.20 - Cocaine dependence, uncomplicated (3) Opioid use disorder, moderate, dependence: Status: Acute Code(s): F11.20 - Opioid dependence, uncomplicated (4) Acute pharyngitis, unspecified: Status: Acute Code(s): J02.9 - Acute pharyngitis, unspecified Assessment and Plan: rapid strep ordered Plan Ms. Sow is a 43 year-old woman who self presented to [facility] ED reporting increase depression and SI. She also presents with complex system of delusions including paranoid and somatic delusions. It appears she has been mostly untreated. She also presents with substance use disorder. she was started on methadone. We discussed risks, benefits and alternative treatment options, pt agreed to start risperidone. PLAN 1. Admit to M3, cv 15 minutes checks 2. start risperidone 1mg po BID 3. aftercare planning 4. obtain collateral information 11/09: Keeping to self. Not attending groups. Pt reports she did not take the risperidal this morning because she does not like the way it made her feel; pt was unable to elaborate on this. Discussed zyprexa;risks/benefits, pt agreed to trial medication. She also requested to start hydroxyzine d/t helping with her anxiety. Pt stated, I get overwhelmed with boredom. I just want to punch myself sometimes. I feel like someone is inside me . Pt reports auditory and visual hallucinations; pt stated, the voices make fun of me and I see shadows . Pt reports she would like to go to a substance abuse program when discharged from hospital. DC Risperidal DC Seroquel Start: Zyprexa 10mg PO bedtime Cogentin 0.5mg PO bedtime Hydroxyzine 25mg PO Q6HR PRN anxiety 11/10: Pt reports feeling okay today;pt stated, I have anxiety on and off. I wacked myself in the face yesterday. I don't want to hit myself, sometimes I get overwhelmed. I love myself. I no longer feel like anyone is trying to rape me but the voices keep telling me that someone is trying to kill and rape me and my family . Pt reports visual hallucinations of shadow people . pt denies any side effects from Zyprexa. denies SI/HI. Continue current tx plan. 11/11: Pt reports feeling anxious today; pt stated, coloring usually helps with my anxiety. I didn't hit myself yesterday which is good. The zyprexa seems to be helping . Continues to report auditory and visual hallucinations. Increased Zyprexa to 15mg PO bedtime Start: clonidine 0.1mg PO daily PRN anxiety Senna 17.2mg PO daily 11/12: DC hydroxyzine per pt request, otherwise continue current mgmt. 11/13: continue current mgmt. c/o [facility]. 11/14: Pt reports feeling mad today because I miss my kids. I have eleven. They're adopted. I've never been . Pt reports ongoing auditory and visual hallucinations. denies SI/HI. Discussed medications; pt reports she would be open to trying new medications such as a mood stabilizer. Pt reports she does not want to take Risperidal again because it gave me sleep paralysis . Will discuss possibility of HECK. 11/15: Pt reports feeling okay today; pt stated, I'm eating and gaining weight. it makes me happy . Pt reports ongoing auditory and visual hallucinations. denies SI/HI. T/W discussed risks/benefits of HECK; pt reports she would rather get an injection than take pills everyday . Pt stated, I know I'm schizophrenic. I think using substances really effected my mental health. I'm done with using . DC Zyprexa. Start: Abilify 5mg PO bedtime 11/16: Pt reports feeling anxious about the future ; pt stated, I don't want to live on the streets. I just want to feel better. I'm not going to use drugs anymore . denies any side effects from medication. Continues to report auditory and visual hallucinations. Pt reports not feeling well and requesting covid test. Pt reports she does not like how Trazodone makes her feel; requested to have it stopped. DC Trazodone Increase Seroquel to 100mg PO bedtime. Ordered Covid swab. 11/17: Pt reports feeling depressed today; pt stated, I miss my family. I saw my two years ago. I spoke to him before coming into the hospital. You guys can talk to him . 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 DC Seroquel DC Abilify Start: Risperidal 1mg PO BID 11/18: Pt reports feeling a little excited today; pt stated, I found out from a friend of mine that my family got green cards. I can't tell you more than that . Pt reports she can feel when one of my family members gets excited ; pt stated, maybe the risperidal opened up a window to excitement for me . denies SI/HI/VH. Reports voices have decreased today. Increase clonidine to 0.1mg PO BID PRN 11/20: Continue current plans and regimen 11/21: Patient reports feeling sad today d/t missing her family. Patient has been refusing Risperidal; pt stated, it was taking away my voices but I felt weird on it and I felt like I was dragging and had a headache . Pt continues to report auditory and visual hallucinations. denies SI/HI. Pt requested to be put back on Abilify. Start: Abilify 5mg PO bedtime Haldol 5mg PO BID PRN 11/22: Pt reports feeling anxious today; pt stated, I want to go to a substance abuse program. I don't want to be on the streets anymore. I keep worrying about tomorrow and then it makes me anxious and depressed . Pt reports she really likes the Abilify because I haven't had voices today ; pt continues to report visual hallucinations of faces . denies SI/HI. 11/23: Pt is requesting an increase in Abilify. Dose increased to 10mg PO daily. Pt stated, the clonidine is working great for my anxiety and my depression is getting better. I'm going to try to go to more groups . She report sleeping well last night. denies SI/HI/AH. Continues to report visual hallucinations. 11/24: Pt reports feeling good today; pt stated, I feel better on the Abilify. I'm hoping to get into a CSS . denies SI/HI/VH/AH. Continue current tx plan. Patient educated on: diagnosis, medication risk/benefits, substance abuse and therapeutic strategies Informed Consent: understands Reason for continued inpatient stay Substantial Risk for: med/psych decompensation Time Spent With Patient Time: Total time managing care of this patient today _20___ minutes.
[2023-11-24] MEDS: Benztropine Mesylate 0.5 MG TABLET PO (14:59)
[2023-11-24] MEDS: HaloperidoL 5 MG TABLET PO (15:01)
[2023-11-24 22:00] VITALS: BP 120/60; PULSE 80; RESP 14; TEMP 36.3; O2SAT 99
[2023-11-25] MEDS: HaloperidoL 5 MG TABLET PO ×2 (00:07→15:46)
[2023-11-25 07:25] VITALS: BP 90/50; PULSE 78; RESP 20; TEMP 36.9; O2SAT 98
[2023-11-25] MEDS: ARIPiprazole 10 MG TABLET PO (08:20)
[2023-11-25] MEDS: Benztropine Mesylate 0.5 MG TABLET PO (08:20)
[2023-11-25] MEDS: methADONE HCl 20 MG/2 ML ORAL.CONC 40 MG PO (08:21)
[2023-11-25] MEDS: Mineral Oil/Petrolatum,White 106 GM Tube 1 APPL TOPICAL (08:24)
[2023-11-25] MEDS: Acetaminophen 325 MG TABLET 650 MG PO (18:14)
[2023-11-25] MEDS: Ibuprofen 600 MG TABLET PO (18:14)
[2023-11-25 20:03] VITALS: BP 129/70; PULSE 67; RESP 16; TEMP 36.5; O2SAT 99
[2023-11-25] MEDS: methADONE HCl 20 MG/2 ML ORAL.CONC 5 MG PO (21:39)
--- NOTE | 2023-11-25 22:48 | P.PNPSI_ITS ---
Subjective Subjective Date of Service: 11/25/23 Reason For Visit: Crisis Interim History: pt c/o withdrawal Sx in the evening, asking for increased dose of methadone. notes reports of pt nodding off during the day but offers to add 5 mg methadone at HS to see if that helps. pt agrees. no other complaints or requests. reports AH are improving. per staff, attended 1 group yesterday. asking for increased doses of methadone. anx 6, dep 8. +AH. had haldol PRN then slept OK. Mental Status Exam Mental Status Exam Narrative: Pt is alert and oriented; behavior is cooperative; dressed in casual attire; mood is described as okay ; eye contact appropriate; Speech is normal rate, volume and prosody and not pressured; thought process is organized, future oriented. no SI/HI/VH expressed. reports improved AH. Diagnostics Vital Signs (24Hr): Vital Signs - 24 hr 11/25/23 07:25 11/25/23 20:03 Temperature 98.4 F 97.7 F Pulse Rate 78 67 Respiratory Rate 20 16 Blood Pressure 90/50 L 129/70 Pulse Oximetry 98 99 Oxygen Delivery Method Room Air Room Air BMI result Body Mass Index 20.7 Labs 11/04/23 14:43 11/04/23 14:43 Imaging Radiology Impressions: ITS Impressions Chest X-Ray 11/04/23 15:00 IMPRESSION: Unremarkable examination. Medications Medications Current Medications Acetaminophen (Acetaminophen 325 Mg Tablet) 650 mg PO Q6H PRN PRN Reason: Headache/Pain Mild Scale (1-3) Last Admin: 11/25/23 18:14 Dose: 650 mg Al Hydroxide/Mg Hydroxide (Magnesium Hydrox/Alum Hydrox 30 Ml Oral.Susp) 30 ml PO Q6H PRN PRN Reason: Heartburn/Nausea Last Admin: 11/17/23 14:04 Dose: 30 ml Aripiprazole (Aripiprazole 10 Mg Tablet) 10 mg PO DAILY [facility] Last Admin: 11/25/23 08:20 Dose: 10 mg Benzocaine (Throat Lozenge, Medicated Lozenge) 1 lozenge MUCOUS MEM Q2H PRN PRN Reason: Sore Throat Last Admin: 11/24/23 04:08 Dose: 1 lozenge Benztropine Mesylate (Benztropine Mesylate 0.5 Mg Tablet) 0.5 mg PO DAILY [facility] Last Admin: 11/25/23 08:20 Dose: 0.5 mg Clonidine HCl (Clonidine Hcl 0.1 Mg Tablet) 0.1 mg PO BID PRN; Protocol PRN Reason: Anxiety Last Admin: 11/24/23 20:48 Dose: 0.1 mg Haloperidol (Haloperidol 5 Mg Tablet) 5 mg PO BID PRN PRN Reason: Psychosis Last Admin: 11/25/23 15:46 Dose: 5 mg Ibuprofen (Ibuprofen 600 Mg Tablet) 600 mg PO Q6H PRN PRN Reason: tooth pain Last Admin: 11/25/23 18:14 Dose: 600 mg Magnesium Hydroxide (Milk Of Magnesia 30 Ml Oral.Susp) 30 ml PO DAILY PRN PRN Reason: Constipation Methadone HCl (Methadone Hcl 20 Mg/2 Ml Oral.Conc) 40 mg PO DAILY [facility] Last Admin: 11/25/23 08:21 Dose: 40 mg Methadone HCl (Methadone Hcl 20 Mg/2 Ml Oral.Conc) 5 mg PO BEDTIME [facility] Last Admin: 11/25/23 21:39 Dose: 5 mg Multi-Ingred Cream/Lotion/Oil/Oint (Mineral Oil/Petrolatum,White 106 Gm Tube) 1 appl TOPICAL BID [facility]; Protocol Last Admin: 11/25/23 21:38 Dose: Not Given Nicotine Polacrilex (Nicotine Polacrilex 2 Mg Gum) 4 mg BUCCAL Q2H PRN PRN Reason: Nicotine Cravings Last Admin: 11/08/23 08:56 Dose: 4 mg Senna (Sennosides 8.6 Mg Tablet) 17.2 mg PO DAILY PRN PRN Reason: Constipation Allergies Allergies Allergy/AdvReac Type Severity Reaction Status Date / Time fish derived [fish] AdvReac Anaphylaxis Verified 11/19/23 21:11 Assessment & Plan Assessment & Plan (1) Schizophrenia: Status: Acute Code(s): F20.9 - Schizophrenia, unspecified Assessment and Plan: Encourage patient to persevere with risperdal trial as she has not been on any one med long enough to gauge response. Also, headache may be caused by ENT issues. (2) Cocaine use disorder, moderate, dependence: Status: Acute Code(s): F14.20 - Cocaine dependence, uncomplicated (3) Opioid use disorder, moderate, dependence: Status: Acute Code(s): F11.20 - Opioid dependence, uncomplicated (4) Acute pharyngitis, unspecified: Status: Acute Code(s): J02.9 - Acute pharyngitis, unspecified Assessment and Plan: rapid strep ordered Plan Ms. Sow is a 43 year-old woman who self presented to [facility] reporting increase depression and SI. She also presents with complex system of delusions including paranoid and somatic delusions. It appears she has been mostly untreated. She also presents with substance use disorder. she was started on methadone. We discussed risks, benefits and alternative treatment options, pt agreed to start risperidone. PLAN 1. Admit to M3, cv 15 minutes checks 2. start risperidone 1mg po BID 3. aftercare planning 4. obtain collateral information 11/09: Keeping to self. Not attending groups. Pt reports she did not take the risperidal this morning because she does not like the way it made her feel; pt was unable to elaborate on this. Discussed zyprexa;risks/benefits, pt agreed to trial medication. She also requested to start hydroxyzine d/t helping with her anxiety. Pt stated, I get overwhelmed with boredom. I just want to punch myself sometimes. I feel like someone is inside me . Pt reports auditory and visual hallucinations; pt stated, the voices make fun of me and I see shadows . Pt reports she would like to go to a substance abuse program when discharged from hospital. DC Risperidal DC Seroquel Start: Zyprexa 10mg PO bedtime Cogentin 0.5mg PO bedtime Hydroxyzine 25mg PO Q6HR PRN anxiety 11/10: Pt reports feeling okay today;pt stated, I have anxiety on and off. I wacked myself in the face yesterday. I don't want to hit myself, sometimes I get overwhelmed. I love myself. I no longer feel like anyone is trying to rape me but the voices keep telling me that someone is trying to kill and rape me and my family . Pt reports visual hallucinations of shadow people . pt denies any side effects from Zyprexa. denies SI/HI. Continue current tx plan. 11/11: Pt reports feeling anxious today; pt stated, coloring usually helps with my anxiety. I didn't hit myself yesterday which is good. The zyprexa seems to be helping . Continues to report auditory and visual hallucinations. Increased Zyprexa to 15mg PO bedtime Start: clonidine 0.1mg PO daily PRN anxiety Senna 17.2mg PO daily 11/12: DC hydroxyzine per pt request, otherwise continue current mgmt. 11/13: continue current mgmt. c/o AVH. 11/14: Pt reports feeling mad today because I miss my kids. I have eleven. They're adopted. I've never been . Pt reports ongoing auditory and visual hallucinations. denies SI/HI. Discussed medications; pt reports she would be open to trying new medications such as a mood stabilizer. Pt reports she does not want to take Risperidal again because it gave me sleep paralysis . Will discuss possibility of HECK. 11/15: Pt reports feeling okay today; pt stated, I'm eating and gaining weight. it makes me happy . Pt reports ongoing auditory and visual hallucinations. denies SI/HI. T/W discussed risks/benefits of HECK; pt reports she would rather get an injection than take pills everyday . Pt stated, I know I'm schizophrenic. I think using substances really effected my mental health. I'm done with using . DC Zyprexa. Start: Abilify 5mg PO bedtime 11/16: Pt reports feeling anxious about the future ; pt stated, I don't want to live on the streets. I just want to feel better. I'm not going to use drugs anymore . denies any side effects from medication. Continues to report auditory and visual hallucinations. Pt reports not feeling well and requesting covid test. Pt reports she does not like how Trazodone makes her feel; requested to have it stopped. DC Trazodone Increase Seroquel to 100mg PO bedtime. Ordered Covid swab. 11/17: Pt reports feeling depressed today; pt stated, I miss my family. I saw my two years ago. I spoke to him before coming into the hospital. You guys can talk to him . 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 DC Seroquel DC Abilify Start: Risperidal 1mg PO BID 11/18: Pt reports feeling a little excited today; pt stated, I found out from a friend of mine that my family got green cards. I can't tell you more than that . Pt reports she can feel when one of my family members gets excited ; pt stated, maybe the risperidal opened up a window to excitement for me . denies SI/HI/VH. Reports voices have decreased today. Increase clonidine to 0.1mg PO BID PRN 11/20: Continue current plans and regimen 11/21: Patient reports feeling sad today d/t missing her family. Patient has been refusing Risperidal; pt stated, it was taking away my voices but I felt weird on it and I felt like I was dragging and had a headache . Pt continues to report auditory and visual hallucinations. denies SI/HI. Pt requested to be put back on Abilify. Start: Abilify 5mg PO bedtime Haldol 5mg PO BID PRN 11/22: Pt reports feeling anxious today; pt stated, I want to go to a substance abuse program. I don't want to be on the streets anymore. I keep worrying about tomorrow and then it makes me anxious and depressed . Pt reports she really likes the Abilify because I haven't had voices today ; pt continues to report visual hallucinations of faces . denies SI/HI. 11/23: Pt is requesting an increase in Abilify. Dose increased to 10mg PO daily. Pt stated, the clonidine is working great for my anxiety and my depression is getting better. I'm going to try to go to more groups . She report sleeping well last night. denies SI/HI/AH. Continues to report visual hallucinations. 11/24: Pt reports feeling good today; pt stated, I feel better on the Abilify. I'm hoping to get into a CSS . denies SI/HI/VH/AH. Continue current tx plan. 11/25: c/o opioid withdrawal Sx in eves, agrees to add methadone 5 mg at HS to see if it improves her Sx. reports attenuated AH. otherwise stable, continue current mgmt. Reason for continued inpatient stay Substantial Risk for: inability to function and rapid decompensation Time Spent With Patient Time: Total time managing care of this patient today ____ minutes.
[2023-11-26] MEDS: Ibuprofen 600 MG TABLET PO ×2 (03:45→23:16)
[2023-11-26] MEDS: cloNIDine HCL 0.1 MG TABLET PO (03:46)
[2023-11-26] MEDS: HaloperidoL 5 MG TABLET PO ×2 (03:46→20:49)
[2023-11-26 07:40] VITALS: BP 84/47; PULSE 76; RESP 18; TEMP 36.6; O2SAT 99
[2023-11-26 09:09] VITALS: BP 88/60; PULSE 79; RESP 16; O2SAT 100
[2023-11-26 09:15] VITALS: BP 113/56; PULSE 81; RESP 16; O2SAT 100
[2023-11-26] MEDS: Benztropine Mesylate 0.5 MG TABLET PO (09:17)
[2023-11-26] MEDS: ARIPiprazole 10 MG TABLET PO (09:17)
[2023-11-26] MEDS: Mineral Oil/Petrolatum,White 106 GM Tube 1 APPL TOPICAL (09:18)
[2023-11-26] MEDS: methADONE HCl 20 MG/2 ML ORAL.CONC 40 MG PO (09:18)
--- NOTE | 2023-11-26 14:35 | HO.PSYCHPN ---
Subjective Subjective Date of Service: 11/26/23 Reason For Visit: Crisis Subjective Notes: Conditional Voluntary Interim History: Pt continues to report hearing voices telling her her children are not doing well. She has consistently taken haldol which reports somewhat helpful. will scheduled haldol given degree of psychosis and delusions. she has some bizarre reports, about walking asleep at night or having withdrawal symptoms at night which are not accurate and appear to be related more to her delusions. addiction medicine consulted, they recommend methadone dose to be all in AM. monitor sedation during the day. Review of Systems Review of Systems Constitutional : No Fever, No Chills ENT/Mouth : No Ear Pain, No Nasal Congestion, No sore throat Eyes: No Eye Pain, No Swelling, No Redness Cardiovascular : No Chest Pain, No SOB Respiratory : No Cough, No Sputum, No Dyspnea Gastrointestinal : No Nausea, No Vomiting, No Diarrhea, No Hematochezia, No Melena Genitourinary : No Dysuria, No Urinary Frequency, No Hematuria Musculoskeletal : No Myalgias Skin : No Skin Lesions, No rash Neuro : No Weakness, No Numbness, No Paresthesias, No Dizziness, No Headache Psych : positive Anxiety, positive Depression, positive SI no HI All other systems reviewed and are negative Yes all other systems are reviewed and are negative Constitutional: Reports as per HPI Eyes: Reports as per HPI Reports as per HPI Cardiovascular: Reports as per HPI Respiratory: Reports as per HPI Gastrointestinal: Reports as per HPI Musculoskeletal: Reports as per HPI Skin/Breast: Reports as per HPI Reports as per HPI Psychiatric: Reports as per HPI Endocrine: Reports as per HPI Hematologic/Lymphatic: Reports as per HPI Allergic/Immunologic: Reports as per HPI Mental Status Exam Mental Status Exam Narrative: Pt is alert and oriented; behavior is cooperative; dressed in casual attire; mood is described as okay ; eye contact appropriate; Speech is normal rate, volume and prosody and not pressured; thought process is organized, future oriented. no SI/HI/VH expressed. reports improved AH. Diagnostics Vital Signs (24Hr): Vital Signs - 24 hr 11/25/23 20:03 11/26/23 07:40 11/26/23 09:09 Temperature 97.7 F 98 F Pulse Rate 67 76 79 Respiratory Rate 16 18 16 Blood Pressure 129/70 84/47 L 88/60 L Pulse Oximetry 99 99 100 Oxygen Delivery Method Room Air Room Air Room Air 11/26/23 09:15 Temperature Pulse Rate 81 Respiratory Rate 16 Blood Pressure 113/56 L Pulse Oximetry 100 Oxygen Delivery Method Room Air BMI result Body Mass Index 20.7 Labs 11/04/23 14:43 11/04/23 14:43 Imaging Radiology Impressions: ITS Impressions Chest X-Ray 11/04/23 15:00 IMPRESSION: Unremarkable examination. Medications Medications Current Medications Acetaminophen (Acetaminophen 325 Mg Tablet) 650 mg PO Q6H PRN PRN Reason: Headache/Pain Mild Scale (1-3) Last Admin: 11/25/23 18:14 Dose: 650 mg Al Hydroxide/Mg Hydroxide (Magnesium Hydrox/Alum Hydrox 30 Ml Oral.Susp) 30 ml PO Q6H PRN PRN Reason: Heartburn/Nausea Last Admin: 11/17/23 14:04 Dose: 30 ml Aripiprazole (Aripiprazole 10 Mg Tablet) 10 mg PO DAILY [facility] Last Admin: 11/26/23 09:17 Dose: 10 mg Benzocaine (Throat Lozenge, Medicated Lozenge) 1 lozenge MUCOUS MEM Q2H PRN PRN Reason: Sore Throat Last Admin: 11/24/23 04:08 Dose: 1 lozenge Benztropine Mesylate (Benztropine Mesylate 0.5 Mg Tablet) 0.5 mg PO DAILY [facility] Last Admin: 11/26/23 09:17 Dose: 0.5 mg Haloperidol (Haloperidol 5 Mg Tablet) 5 mg PO BID [facility] Ibuprofen (Ibuprofen 600 Mg Tablet) 600 mg PO Q6H PRN PRN Reason: tooth pain Last Admin: 11/26/23 03:45 Dose: 600 mg Magnesium Hydroxide (Milk Of Magnesia 30 Ml Oral.Susp) 30 ml PO DAILY PRN PRN Reason: Constipation Methadone HCl (Methadone Hcl 20 Mg/2 Ml Oral.Conc) 40 mg PO DAILY [facility] Last Admin: 11/26/23 09:18 Dose: 40 mg Methadone HCl (Methadone Hcl 20 Mg/2 Ml Oral.Conc) 5 mg PO BEDTIME [facility] Last Admin: 11/25/23 21:39 Dose: 5 mg Multi-Ingred Cream/Lotion/Oil/Oint (Mineral Oil/Petrolatum,White 106 Gm Tube) 1 appl TOPICAL BID [facility]; Protocol Last Admin: 11/26/23 09:18 Dose: 1 appl Nicotine Polacrilex (Nicotine Polacrilex 2 Mg Gum) 4 mg BUCCAL Q2H PRN PRN Reason: Nicotine Cravings Last Admin: 11/08/23 08:56 Dose: 4 mg Senna (Sennosides 8.6 Mg Tablet) 17.2 mg PO DAILY PRN PRN Reason: Constipation Allergies Allergies Allergy/AdvReac Type Severity Reaction Status Date / Time fish derived [fish] AdvReac Anaphylaxis Verified 11/19/23 21:11 Assessment & Plan Assessment & Plan (1) Schizophrenia: Status: Acute Code(s): F20.9 - Schizophrenia, unspecified Assessment and Plan: Encourage patient to persevere with risperdal trial as she has not been on any one med long enough to gauge response. Also, headache may be caused by ENT issues. (2) Cocaine use disorder, moderate, dependence: Status: Acute Code(s): F14.20 - Cocaine dependence, uncomplicated (3) Opioid use disorder, moderate, dependence: Status: Acute Code(s): F11.20 - Opioid dependence, uncomplicated (4) Acute pharyngitis, unspecified: Status: Acute Code(s): J02.9 - Acute pharyngitis, unspecified Assessment and Plan: rapid strep ordered Plan Ms. Sow is a 43 year-old woman who self presented to [facility] reporting increase depression and SI. She also presents with complex system of delusions including paranoid and somatic delusions. It appears she has been mostly untreated. She also presents with substance use disorder. she was started on methadone. We discussed risks, benefits and alternative treatment options, pt agreed to start risperidone. PLAN 1. Admit to M3, cv 15 minutes checks 2. start risperidone 1mg po BID 3. aftercare planning 4. obtain collateral information 11/09: Keeping to self. Not attending groups. Pt reports she did not take the risperidal this morning because she does not like the way it made her feel; pt was unable to elaborate on this. Discussed zyprexa;risks/benefits, pt agreed to trial medication. She also requested to start hydroxyzine d/t helping with her anxiety. Pt stated, I get overwhelmed with boredom. I just want to punch myself sometimes. I feel like someone is inside me . Pt reports auditory and visual hallucinations; pt stated, the voices make fun of me and I see shadows . Pt reports she would like to go to a substance abuse program when discharged from hospital. DC Risperidal DC Seroquel Start: Zyprexa 10mg PO bedtime Cogentin 0.5mg PO bedtime Hydroxyzine 25mg PO Q6HR PRN anxiety 11/10: Pt reports feeling okay today;pt stated, I have anxiety on and off. I wacked myself in the face yesterday. I don't want to hit myself, sometimes I get overwhelmed. I love myself. I no longer feel like anyone is trying to rape me but the voices keep telling me that someone is trying to kill and rape me and my family . Pt reports visual hallucinations of shadow people . pt denies any side effects from Zyprexa. denies SI/HI. Continue current tx plan. 11/11: Pt reports feeling anxious today; pt stated, coloring usually helps with my anxiety. I didn't hit myself yesterday which is good. The zyprexa seems to be helping . Continues to report auditory and visual hallucinations. Increased Zyprexa to 15mg PO bedtime Start: clonidine 0.1mg PO daily PRN anxiety Senna 17.2mg PO daily 11/12: DC hydroxyzine per pt request, otherwise continue current mgmt. 11/13: continue current mgmt. c/o AVH. 11/14: Pt reports feeling mad today because I miss my kids. I have eleven. They're adopted. I've never been . Pt reports ongoing auditory and visual hallucinations. denies SI/HI. Discussed medications; pt reports she would be open to trying new medications such as a mood stabilizer. Pt reports she does not want to take Risperidal again because it gave me sleep paralysis . Will discuss possibility of HECK. 11/15: Pt reports feeling okay today; pt stated, I'm eating and gaining weight. it makes me happy . Pt reports ongoing auditory and visual hallucinations. denies SI/HI. T/W discussed risks/benefits of HECK; pt reports she would rather get an injection than take pills everyday . Pt stated, I know I'm schizophrenic. I think using substances really effected my mental health. I'm done with using . DC Zyprexa. Start: Abilify 5mg PO bedtime 11/16: Pt reports feeling anxious about the future ; pt stated, I don't want to live on the streets. I just want to feel better. I'm not going to use drugs anymore . denies any side effects from medication. Continues to report auditory and visual hallucinations. Pt reports not feeling well and requesting covid test. Pt reports she does not like how Trazodone makes her feel; requested to have it stopped. DC Trazodone Increase Seroquel to 100mg PO bedtime. Ordered Covid swab. 11/17: Pt reports feeling depressed today; pt stated, I miss my family. I saw my two years ago. I spoke to him before coming into the hospital. You guys can talk to him . 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 DC Seroquel DC Abilify Start: Risperidal 1mg PO BID 11/18: Pt reports feeling a little excited today; pt stated, I found out from a friend of mine that my family got green cards. I can't tell you more than that . Pt reports she can feel when one of my family members gets excited ; pt stated, maybe the risperidal opened up a window to excitement for me . denies SI/HI/VH. Reports voices have decreased today. Increase clonidine to 0.1mg PO BID PRN 11/20: Continue current plans and regimen 11/21: Patient reports feeling sad today d/t missing her family. Patient has been refusing Risperidal; pt stated, it was taking away my voices but I felt weird on it and I felt like I was dragging and had a headache . Pt continues to report auditory and visual hallucinations. denies SI/HI. Pt requested to be put back on Abilify. Start: Abilify 5mg PO bedtime Haldol 5mg PO BID PRN 11/22: Pt reports feeling anxious today; pt stated, I want to go to a substance abuse program. I don't want to be on the streets anymore. I keep worrying about tomorrow and then it makes me anxious and depressed . Pt reports she really likes the Abilify because I haven't had voices today ; pt continues to report visual hallucinations of faces . denies SI/HI. 11/23: Pt is requesting an increase in Abilify. Dose increased to 10mg PO daily. Pt stated, the clonidine is working great for my anxiety and my depression is getting better. I'm going to try to go to more groups . She report sleeping well last night. denies SI/HI/AH. Continues to report visual hallucinations. 11/24: Pt reports feeling good today; pt stated, I feel better on the Abilify. I'm hoping to get into a CSS . denies SI/HI/VH/AH. Continue current tx plan. 11/25: c/o opioid withdrawal Sx in clint, agrees to add methadone 5 mg at HS to see if it improves her Sx. reports attenuated AH. otherwise stable, continue current mgmt. 11/26 scheduled haldol 5mg po BID Reason for continued inpatient stay Substantial Risk for: inability to function Time Spent With Patient Time: Total time managing care of this patient today ____ minutes.
[2023-11-26 18:31] VITALS: BP 103/65; PULSE 78; RESP 16; TEMP 37.1; O2SAT 99
[2023-11-26] MEDS: methADONE HCl 20 MG/2 ML ORAL.CONC 5 MG PO (20:50)
[2023-11-26 21:50] VITALS: BP 119/64; PULSE 71
[2023-11-26] MEDS: cloNIDine HCL 0.1 MG TABLET 0.05 MG PO (21:57)
[2023-11-27 08:30] VITALS: BP 114/58; PULSE 69; RESP 16; TEMP 36.8; O2SAT 100
[2023-11-27] MEDS: ARIPiprazole 10 MG TABLET PO (09:18)
[2023-11-27] MEDS: Mineral Oil/Petrolatum,White 106 GM Tube 1 APPL TOPICAL (09:19)
[2023-11-27] MEDS: Benztropine Mesylate 0.5 MG TABLET PO (09:19)
[2023-11-27] MEDS: HaloperidoL 5 MG TABLET PO ×2 (09:19→22:28)
[2023-11-27] MEDS: methADONE HCl 20 MG/2 ML ORAL.CONC 40 MG PO (09:20)
--- NOTE | 2023-11-27 12:04 | MHC.RECOVRN ---
Met with pt in treatment room on M3 after consult placed to Addiction Medicine due to pt expressing interest in Sublocade. Pt had presented to [facility] on 11/04 reporting increased depression, SI, and complex delusions. Pt subsequently admitted for schizophrenia and DARCIE. Pt had initiated methadone while in the ED. At that time, eventual goal was to transition to buprenorphine/Sublocade once more comfortable and stable. Pt currently receiving 40 mg methadone in the morning and 5 mg at night. Pt reports the additional 5 mg (started on 11/25) has helped a lot, denies withdrawal symptoms/cravings. Pt reports Subutex in the past and is interested in transitioning with goal of Sublocade. Educated pt on transition from methadone to buprenorphine. After education, pt declines transition, reports desire to continue with methadone. Pt states I didn't think it would work as good as it does. Pt reports goal is CSS, assured methadone would not be a barrier to care. Pt denies other questions or concerns at this time. Encouraged to reach out if questions or concerns arise. Discussed with Stacy Moreno APRN.
--- NOTE | 2023-11-27 15:37 | HO.PSYCHPN ---
Subjective Subjective Date of Service: 11/27/23 Reason For Visit: Crisis Interim History: Pt continues to report hearing voices telling her her children are not doing well. She has consistently taken haldol which reports somewhat helpful. will scheduled haldol given degree of psychosis and delusions. she has some bizarre reports, about walking asleep at night or having withdrawal symptoms at night which are not accurate and appear to be related more to her delusions. addiction medicine consulted, they recommend methadone dose to be all in AM. monitor sedation during the day. Review of Systems Review of Systems Constitutional : No Fever, No Chills ENT/Mouth : No Ear Pain, No Nasal Congestion, No sore throat Eyes: No Eye Pain, No Swelling, No Redness Cardiovascular : No Chest Pain, No SOB Respiratory : No Cough, No Sputum, No Dyspnea Gastrointestinal : No Nausea, No Vomiting, No Diarrhea, No Hematochezia, No Melena Genitourinary : No Dysuria, No Urinary Frequency, No Hematuria Musculoskeletal : No Myalgias Skin : No Skin Lesions, No rash Neuro : No Weakness, No Numbness, No Paresthesias, No Dizziness, No Headache Psych : positive Anxiety, positive Depression, positive SI no HI All other systems reviewed and are negative Yes all other systems are reviewed and are negative Constitutional: Reports as per HPI Eyes: Reports as per HPI Reports as per HPI Cardiovascular: Reports as per HPI Respiratory: Reports as per HPI Gastrointestinal: Reports as per HPI Musculoskeletal: Reports as per HPI Skin/Breast: Reports as per HPI Reports as per HPI Psychiatric: Reports as per HPI Endocrine: Reports as per HPI Hematologic/Lymphatic: Reports as per HPI Allergic/Immunologic: Reports as per HPI Mental Status Exam Mental Status Exam Narrative: Pt is alert and oriented; behavior is cooperative; dressed in casual attire; mood is described as okay ; eye contact appropriate; Speech is normal rate, volume and prosody and not pressured; thought process is organized, future oriented. no SI/HI/VH expressed. reports improved AH. Diagnostics Vital Signs (24Hr): Vital Signs - 24 hr 11/26/23 18:31 11/26/23 21:50 11/27/23 08:30 Temperature 98.8 F 98.2 F Pulse Rate 78 71 69 Respiratory Rate 16 16 Blood Pressure 103/65 119/64 114/58 L Pulse Oximetry 99 100 Oxygen Delivery Method Room Air Room Air BMI result Body Mass Index 20.7 Labs 11/04/23 14:43 11/04/23 14:43 Imaging Radiology Impressions: ITS Impressions Chest X-Ray 11/04/23 15:00 IMPRESSION: Unremarkable examination. Medications Medications Current Medications Acetaminophen (Acetaminophen 325 Mg Tablet) 650 mg PO Q6H PRN PRN Reason: Headache/Pain Mild Scale (1-3) Last Admin: 11/25/23 18:14 Dose: 650 mg Al Hydroxide/Mg Hydroxide (Magnesium Hydrox/Alum Hydrox 30 Ml Oral.Susp) 30 ml PO Q6H PRN PRN Reason: Heartburn/Nausea Last Admin: 11/17/23 14:04 Dose: 30 ml Aripiprazole (Aripiprazole 10 Mg Tablet) 10 mg PO DAILY COUNT INCLUDES THE [facility] Last Admin: 11/27/23 09:18 Dose: 10 mg Benzocaine (Throat Lozenge, Medicated Lozenge) 1 lozenge MUCOUS MEM Q2H PRN PRN Reason: Sore Throat Last Admin: 11/24/23 04:08 Dose: 1 lozenge Benztropine Mesylate (Benztropine Mesylate 0.5 Mg Tablet) 0.5 mg PO DAILY COUNT INCLUDES THE [facility] Last Admin: 11/27/23 09:19 Dose: 0.5 mg Clonidine HCl (Clonidine Hcl 0.1 Mg Tablet) 0.05 mg PO TID PRN; Protocol PRN Reason: anxiety Last Admin: 11/26/23 21:57 Dose: 0.05 mg Haloperidol (Haloperidol 5 Mg Tablet) 5 mg PO BID COUNT INCLUDES THE [facility] Last Admin: 11/27/23 09:19 Dose: 5 mg Ibuprofen (Ibuprofen 600 Mg Tablet) 600 mg PO Q6H PRN PRN Reason: tooth pain Last Admin: 11/26/23 23:16 Dose: 600 mg Magnesium Hydroxide (Milk Of Magnesia 30 Ml Oral.Susp) 30 ml PO DAILY PRN PRN Reason: Constipation Methadone HCl (Methadone Hcl 20 Mg/2 Ml Oral.Conc) 40 mg PO DAILY COUNT INCLUDES THE [facility] Last Admin: 11/27/23 09:20 Dose: 40 mg Multi-Ingred Cream/Lotion/Oil/Oint (Mineral Oil/Petrolatum,White 106 Gm Tube) 1 appl TOPICAL BID COUNT INCLUDES THE [facility]; Protocol Last Admin: 11/27/23 09:19 Dose: 1 appl Nicotine Polacrilex (Nicotine Polacrilex 2 Mg Gum) 4 mg BUCCAL Q2H PRN PRN Reason: Nicotine Cravings Last Admin: 11/08/23 08:56 Dose: 4 mg Senna (Sennosides 8.6 Mg Tablet) 17.2 mg PO DAILY PRN PRN Reason: Constipation Allergies Allergies Allergy/AdvReac Type Severity Reaction Status Date / Time fish derived [fish] AdvReac Anaphylaxis Verified 11/19/23 21:11 Assessment & Plan Assessment & Plan (1) Schizophrenia: Status: Acute Code(s): F20.9 - Schizophrenia, unspecified (2) Cocaine use disorder, moderate, dependence: Status: Acute Code(s): F14.20 - Cocaine dependence, uncomplicated (3) Opioid use disorder, moderate, dependence: Status: Acute Code(s): F11.20 - Opioid dependence, uncomplicated (4) Acute pharyngitis, unspecified: Status: Acute Code(s): J02.9 - Acute pharyngitis, unspecified Assessment and Plan: rapid strep ordered Plan Ms. Sow is a 43 year-old woman who self presented to [facility] reporting increase depression and SI. She also presents with complex system of delusions including paranoid and somatic delusions. It appears she has been mostly untreated. She also presents with substance use disorder. she was started on methadone. We discussed risks, benefits and alternative treatment options, pt agreed to start risperidone. PLAN 1. Admit to M3, cv 15 minutes checks 2. start risperidone 1mg po BID 3. aftercare planning 4. obtain collateral information 11/09: Keeping to self. Not attending groups. Pt reports she did not take the risperidal this morning because she does not like the way it made her feel; pt was unable to elaborate on this. Discussed zyprexa;risks/benefits, pt agreed to trial medication. She also requested to start hydroxyzine d/t helping with her anxiety. Pt stated, I get overwhelmed with boredom. I just want to punch myself sometimes. I feel like someone is inside me . Pt reports auditory and visual hallucinations; pt stated, the voices make fun of me and I see shadows . Pt reports she would like to go to a substance abuse program when discharged from hospital. DC Risperidal DC Seroquel Start: Zyprexa 10mg PO bedtime Cogentin 0.5mg PO bedtime Hydroxyzine 25mg PO Q6HR PRN anxiety 11/10: Pt reports feeling okay today;pt stated, I have anxiety on and off. I wacked myself in the face yesterday. I don't want to hit myself, sometimes I get overwhelmed. I love myself. I no longer feel like anyone is trying to rape me but the voices keep telling me that someone is trying to kill and rape me and my family . Pt reports visual hallucinations of shadow people . pt denies any side effects from Zyprexa. denies SI/HI. Continue current tx plan. 11/11: Pt reports feeling anxious today; pt stated, coloring usually helps with my anxiety. I didn't hit myself yesterday which is good. The zyprexa seems to be helping . Continues to report auditory and visual hallucinations. Increased Zyprexa to 15mg PO bedtime Start: clonidine 0.1mg PO daily PRN anxiety Senna 17.2mg PO daily 11/12: DC hydroxyzine per pt request, otherwise continue current mgmt. 11/13: continue current mgmt. c/o [facility]. 11/14: Pt reports feeling mad today because I miss my kids. I have eleven. They're adopted. I've never been . Pt reports ongoing auditory and visual hallucinations. denies SI/HI. Discussed medications; pt reports she would be open to trying new medications such as a mood stabilizer. Pt reports she does not want to take Risperidal again because it gave me sleep paralysis . Will discuss possibility of HECK. 11/15: Pt reports feeling okay today; pt stated, I'm eating and gaining weight. it makes me happy . Pt reports ongoing auditory and visual hallucinations. denies SI/HI. T/W discussed risks/benefits of HECK; pt reports she would rather get an injection than take pills everyday . Pt stated, I know I'm schizophrenic. I think using substances really effected my mental health. I'm done with using . DC Zyprexa. Start: Abilify 5mg PO bedtime 11/16: Pt reports feeling anxious about the future ; pt stated, I don't want to live on the streets. I just want to feel better. I'm not going to use drugs anymore . denies any side effects from medication. Continues to report auditory and visual hallucinations. Pt reports not feeling well and requesting covid test. Pt reports she does not like how Trazodone makes her feel; requested to have it stopped. DC Trazodone Increase Seroquel to 100mg PO bedtime. Ordered Covid swab. 11/17: Pt reports feeling depressed today; pt stated, I miss my family. I saw my two years ago. I spoke to him before coming into the hospital. You guys can talk to him . 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 DC Seroquel DC Abilify Start: Risperidal 1mg PO BID 11/18: Pt reports feeling a little excited today; pt stated, I found out from a friend of mine that my family got green cards. I can't tell you more than that . Pt reports she can feel when one of my family members gets excited ; pt stated, maybe the risperidal opened up a window to excitement for me . denies SI/HI/VH. Reports voices have decreased today. Increase clonidine to 0.1mg PO BID PRN 11/20: Continue current plans and regimen 11/21: Patient reports feeling sad today d/t missing her family. Patient has been refusing Risperidal; pt stated, it was taking away my voices but I felt weird on it and I felt like I was dragging and had a headache . Pt continues to report auditory and visual hallucinations. denies SI/HI. Pt requested to be put back on Abilify. Start: Abilify 5mg PO bedtime Haldol 5mg PO BID PRN 11/22: Pt reports feeling anxious today; pt stated, I want to go to a substance abuse program. I don't want to be on the streets anymore. I keep worrying about tomorrow and then it makes me anxious and depressed . Pt reports she really likes the Abilify because I haven't had voices today ; pt continues to report visual hallucinations of faces . denies SI/HI. 11/23: Pt is requesting an increase in Abilify. Dose increased to 10mg PO daily. Pt stated, the clonidine is working great for my anxiety and my depression is getting better. I'm going to try to go to more groups . She report sleeping well last night. denies SI/HI/AH. Continues to report visual hallucinations. 11/24: Pt reports feeling good today; pt stated, I feel better on the Abilify. I'm hoping to get into a CSS . denies SI/HI/VH/AH. Continue current tx plan. 11/25: c/o opioid withdrawal Sx in clint, agrees to add methadone 5 mg at HS to see if it improves her Sx. reports attenuated AH. otherwise stable, continue current mgmt. 11/26 scheduled haldol 5mg po BID 11/27 continue tx. methadone once a day if need to increase to 45mg po daily- monitor over sedation. caution about confusing some of her reports such as withdrawal symptoms at night with delusional content. Reason for continued inpatient stay Substantial Risk for: inability to function Time Spent With Patient Time: Total time managing care of this patient today ____ minutes.
[2023-11-27 17:47] VITALS: BP 106/56; PULSE 69; RESP 16; TEMP 36.6; O2SAT 98
[2023-11-27] MEDS: cloNIDine HCL 0.1 MG TABLET 0.05 MG PO (17:49)
[2023-11-27 19:50] VITALS: BP 98/53; PULSE 74; RESP 14; TEMP 36.5; O2SAT 99
[2023-11-27] MEDS: methADONE HCl 20 MG/2 ML ORAL.CONC 5 MG PO (22:27)
[2023-11-28] MEDS: cloNIDine HCL 0.1 MG TABLET 0.05 MG PO ×2 (03:40→13:26)
[2023-11-28 06:00] VITALS: BP 95/52; PULSE 79; RESP 14; TEMP 36.7; O2SAT 98
[2023-11-28 08:15] VITALS: BP 95/52; PULSE 79; RESP 14; TEMP 36.7; O2SAT 98
[2023-11-28] MEDS: Benztropine Mesylate 0.5 MG TABLET PO ×2 (08:28→21:08)
[2023-11-28] MEDS: HaloperidoL 5 MG TABLET PO (08:28)
[2023-11-28] MEDS: methADONE HCl 20 MG/2 ML ORAL.CONC 40 MG PO (08:28)
[2023-11-28] MEDS: ARIPiprazole 10 MG TABLET PO (08:28)
[2023-11-28 13:29] VITALS: BP 109/61; PULSE 73
[2023-11-28] MEDS: methADONE HCl 20 MG/2 ML ORAL.CONC 5 MG PO (18:22)
[2023-11-28 20:05] VITALS: BP 89/50; PULSE 77; RESP 15; TEMP 36.6; O2SAT 99
--- NOTE | 2023-11-28 20:31 | HO.PSYCHPN ---
Subjective Subjective Date of Service: 11/28/23 Reason For Visit: Crisis Interim History: Pt continues to report hearing voices telling her her children are not doing well. She has consistently taken haldol which reports somewhat helpful. will scheduled haldol given degree of psychosis and delusions. she has some bizarre reports, about walking asleep at night or having withdrawal symptoms at night which are not accurate and appear to be related more to her delusions. addiction medicine consulted, they recommend methadone dose to be all in AM. monitor sedation during the day. Review of Systems Review of Systems Constitutional : No Fever, No Chills ENT/Mouth : No Ear Pain, No Nasal Congestion, No sore throat Eyes: No Eye Pain, No Swelling, No Redness Cardiovascular : No Chest Pain, No SOB Respiratory : No Cough, No Sputum, No Dyspnea Gastrointestinal : No Nausea, No Vomiting, No Diarrhea, No Hematochezia, No Melena Genitourinary : No Dysuria, No Urinary Frequency, No Hematuria Musculoskeletal : No Myalgias Skin : No Skin Lesions, No rash Neuro : No Weakness, No Numbness, No Paresthesias, No Dizziness, No Headache Psych : positive Anxiety, positive Depression, positive SI no HI All other systems reviewed and are negative Yes all other systems are reviewed and are negative Constitutional: Reports as per HPI Eyes: Reports as per HPI Reports as per HPI Cardiovascular: Reports as per HPI Respiratory: Reports as per HPI Gastrointestinal: Reports as per HPI Musculoskeletal: Reports as per HPI Skin/Breast: Reports as per HPI Reports as per HPI Psychiatric: Reports as per HPI Endocrine: Reports as per HPI Hematologic/Lymphatic: Reports as per HPI Allergic/Immunologic: Reports as per HPI Mental Status Exam Mental Status Exam Narrative: Pt is alert and oriented; behavior is cooperative; dressed in casual attire; mood is described as okay ; eye contact appropriate; Speech is normal rate, volume and prosody and not pressured; thought process is organized, future oriented. no SI/HI/VH expressed. reports improved AH. Diagnostics Vital Signs (24Hr): Vital Signs - 24 hr 11/28/23 06:00 11/28/23 08:15 11/28/23 13:29 Temperature 98.0 F 98.1 F Pulse Rate 79 79 73 Respiratory Rate 14 14 Blood Pressure 95/52 L 95/52 L 109/61 Pulse Oximetry 98 98 Oxygen Delivery Method Room Air Room Air BMI result Body Mass Index 20.7 Labs 11/04/23 14:43 11/04/23 14:43 Imaging Radiology Impressions: ITS Impressions Chest X-Ray 11/04/23 15:00 IMPRESSION: Unremarkable examination. Medications Medications Current Medications Acetaminophen (Acetaminophen 325 Mg Tablet) 650 mg PO Q6H PRN PRN Reason: Headache/Pain Mild Scale (1-3) Last Admin: 11/25/23 18:14 Dose: 650 mg Al Hydroxide/Mg Hydroxide (Magnesium Hydrox/Alum Hydrox 30 Ml Oral.Susp) 30 ml PO Q6H PRN PRN Reason: Heartburn/Nausea Last Admin: 11/17/23 14:04 Dose: 30 ml Aripiprazole (Aripiprazole 10 Mg Tablet) 10 mg PO DAILY [facility] Last Admin: 11/28/23 08:28 Dose: 10 mg Benzocaine (Throat Lozenge, Medicated Lozenge) 1 lozenge MUCOUS MEM Q2H PRN PRN Reason: Sore Throat Last Admin: 11/24/23 04:08 Dose: 1 lozenge Benztropine Mesylate (Benztropine Mesylate 0.5 Mg Tablet) 0.5 mg PO BEDTIME [facility] Clonidine HCl (Clonidine Hcl 0.1 Mg Tablet) 0.05 mg PO TID PRN; Protocol PRN Reason: anxiety Last Admin: 11/28/23 13:26 Dose: 0.05 mg Haloperidol (Haloperidol 5 Mg Tablet) 5 mg PO DAILY [facility] Haloperidol (Haloperidol 5 Mg Tablet) 10 mg PO BEDTIME [facility] Ibuprofen (Ibuprofen 600 Mg Tablet) 600 mg PO Q6H PRN PRN Reason: tooth pain Last Admin: 11/26/23 23:16 Dose: 600 mg Magnesium Hydroxide (Milk Of Magnesia 30 Ml Oral.Susp) 30 ml PO DAILY PRN PRN Reason: Constipation Methadone HCl (Methadone Hcl 20 Mg/2 Ml Oral.Conc) 45 mg PO DAILY [facility] Multi-Ingred Cream/Lotion/Oil/Oint (Mineral Oil/Petrolatum,White 106 Gm Tube) 1 appl TOPICAL BID [facility]; Protocol Last Admin: 11/28/23 08:29 Dose: Not Given Nicotine Polacrilex (Nicotine Polacrilex 2 Mg Gum) 4 mg BUCCAL Q2H PRN PRN Reason: Nicotine Cravings Last Admin: 11/08/23 08:56 Dose: 4 mg Senna (Sennosides 8.6 Mg Tablet) 17.2 mg PO DAILY PRN PRN Reason: Constipation Allergies Allergies Allergy/AdvReac Type Severity Reaction Status Date / Time fish derived [fish] AdvReac Anaphylaxis Verified 11/19/23 21:11 Assessment & Plan Assessment & Plan (1) Schizophrenia: Status: Acute Code(s): F20.9 - Schizophrenia, unspecified Assessment and Plan: Encourage patient to persevere with risperdal trial as she has not been on any one med long enough to gauge response. Also, headache may be caused by ENT issues. (2) Cocaine use disorder, moderate, dependence: Status: Acute Code(s): F14.20 - Cocaine dependence, uncomplicated (3) Opioid use disorder, moderate, dependence: Status: Acute Code(s): F11.20 - Opioid dependence, uncomplicated (4) Acute pharyngitis, unspecified: Status: Acute Code(s): J02.9 - Acute pharyngitis, unspecified Assessment and Plan: rapid strep ordered Plan Ms. Sow is a 43 year-old woman who self presented to [facility] reporting increase depression and SI. She also presents with complex system of delusions including paranoid and somatic delusions. It appears she has been mostly untreated. She also presents with substance use disorder. she was started on methadone. We discussed risks, benefits and alternative treatment options, pt agreed to start risperidone. PLAN 1. Admit to M3, cv 15 minutes checks 2. start risperidone 1mg po BID 3. aftercare planning 4. obtain collateral information 11/09: Keeping to self. Not attending groups. Pt reports she did not take the risperidal this morning because she does not like the way it made her feel; pt was unable to elaborate on this. Discussed zyprexa;risks/benefits, pt agreed to trial medication. She also requested to start hydroxyzine d/t helping with her anxiety. Pt stated, I get overwhelmed with boredom. I just want to punch myself sometimes. I feel like someone is inside me . Pt reports auditory and visual hallucinations; pt stated, the voices make fun of me and I see shadows . Pt reports she would like to go to a substance abuse program when discharged from hospital. DC Risperidal DC Seroquel Start: Zyprexa 10mg PO bedtime Cogentin 0.5mg PO bedtime Hydroxyzine 25mg PO Q6HR PRN anxiety 11/10: Pt reports feeling okay today;pt stated, I have anxiety on and off. I wacked myself in the face yesterday. I don't want to hit myself, sometimes I get overwhelmed. I love myself. I no longer feel like anyone is trying to rape me but the voices keep telling me that someone is trying to kill and rape me and my family . Pt reports visual hallucinations of shadow people . pt denies any side effects from Zyprexa. denies SI/HI. Continue current tx plan. 11/11: Pt reports feeling anxious today; pt stated, coloring usually helps with my anxiety. I didn't hit myself yesterday which is good. The zyprexa seems to be helping . Continues to report auditory and visual hallucinations. Increased Zyprexa to 15mg PO bedtime Start: clonidine 0.1mg PO daily PRN anxiety Senna 17.2mg PO daily 11/12: DC hydroxyzine per pt request, otherwise continue current mgmt. 11/13: continue current mgmt. c/o [facility]. 11/14: Pt reports feeling mad today because I miss my kids. I have eleven. They're adopted. I've never been . Pt reports ongoing auditory and visual hallucinations. denies SI/HI. Discussed medications; pt reports she would be open to trying new medications such as a mood stabilizer. Pt reports she does not want to take Risperidal again because it gave me sleep paralysis . Will discuss possibility of HECK. 11/15: Pt reports feeling okay today; pt stated, I'm eating and gaining weight. it makes me happy . Pt reports ongoing auditory and visual hallucinations. denies SI/HI. T/W discussed risks/benefits of HECK; pt reports she would rather get an injection than take pills everyday . Pt stated, I know I'm schizophrenic. I think using substances really effected my mental health. I'm done with using . DC Zyprexa. Start: Abilify 5mg PO bedtime 11/16: Pt reports feeling anxious about the future ; pt stated, I don't want to live on the streets. I just want to feel better. I'm not going to use drugs anymore . denies any side effects from medication. Continues to report auditory and visual hallucinations. Pt reports not feeling well and requesting covid test. Pt reports she does not like how Trazodone makes her feel; requested to have it stopped. DC Trazodone Increase Seroquel to 100mg PO bedtime. Ordered Covid swab. 11/17: Pt reports feeling depressed today; pt stated, I miss my family. I saw my two years ago. I spoke to him before coming into the hospital. You guys can talk to him . 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 DC Seroquel DC Abilify Start: Risperidal 1mg PO BID 11/18: Pt reports feeling a little excited today; pt stated, I found out from a friend of mine that my family got green cards. I can't tell you more than that . Pt reports she can feel when one of my family members gets excited ; pt stated, maybe the risperidal opened up a window to excitement for me . denies SI/HI/VH. Reports voices have decreased today. Increase clonidine to 0.1mg PO BID PRN 11/20: Continue current plans and regimen 11/21: Patient reports feeling sad today d/t missing her family. Patient has been refusing Risperidal; pt stated, it was taking away my voices but I felt weird on it and I felt like I was dragging and had a headache . Pt continues to report auditory and visual hallucinations. denies SI/HI. Pt requested to be put back on Abilify. Start: Abilify 5mg PO bedtime Haldol 5mg PO BID PRN 11/22: Pt reports feeling anxious today; pt stated, I want to go to a substance abuse program. I don't want to be on the streets anymore. I keep worrying about tomorrow and then it makes me anxious and depressed . Pt reports she really likes the Abilify because I haven't had voices today ; pt continues to report visual hallucinations of faces . denies SI/HI. 11/23: Pt is requesting an increase in Abilify. Dose increased to 10mg PO daily. Pt stated, the clonidine is working great for my anxiety and my depression is getting better. I'm going to try to go to more groups . She report sleeping well last night. denies SI/HI/AH. Continues to report visual hallucinations. 11/24: Pt reports feeling good today; pt stated, I feel better on the Abilify. I'm hoping to get into a CSS . denies SI/HI/VH/AH. Continue current tx plan. 11/25: c/o opioid withdrawal Sx in clint, agrees to add methadone 5 mg at HS to see if it improves her Sx. reports attenuated AH. otherwise stable, continue current mgmt. 11/26 schedule haldol 5mg po BID 11/27 continue tx. 11/28 increase haldol 5mg po daily and 10mg po qhs. methadone once a day in AM 45mg po daily-- monitor oversedation. still presenting quite psychotic and with delusions affecting her insight/judgment. Reason for continued inpatient stay Substantial Risk for: inability to function Time Spent With Patient Time: Total time managing care of this patient today ____ minutes.
[2023-11-28] MEDS: HaloperidoL 5 MG TABLET 10 MG PO (21:07)
[2023-11-28] MEDS: Mineral Oil/Petrolatum,White 106 GM Tube 1 APPL TOPICAL (21:12)
[2023-11-29] MEDS: Ibuprofen 600 MG TABLET PO (01:49)
[2023-11-29 07:25] VITALS: BP 95/51; PULSE 80; RESP 14; TEMP 36.4; O2SAT 99
[2023-11-29] MEDS: methADONE HCl 20 MG/2 ML ORAL.CONC 45 MG PO (08:27)
[2023-11-29] MEDS: HaloperidoL 5 MG TABLET PO (08:27)
[2023-11-29] MEDS: ARIPiprazole 10 MG TABLET PO (08:27)
--- NOTE | 2023-11-29 08:56 | HO.PSYCHPN ---
Subjective Subjective Date of Service: 11/29/23 Reason For Visit: Crisis Subjective Notes: Conditional Voluntary Interim History: Reviewed with Dr. Trent. Pt reports feeling good today; pt stated, I feel like my anxiety is controlled with the clonidine . Pt reports she feels this dose of methadone is working well for me . She reports only hearing voices when she first wakes up in the morning. denies SI/HI/VH. Medication Compliance: Yes Side effects from medications: No Attending Groups: Intermittent Review of Systems Constitutional: Reports as per HPI Eyes: Reports as per HPI Reports as per HPI Cardiovascular: Reports as per HPI Respiratory: Reports as per HPI Gastrointestinal: Reports as per HPI Genitourinary: Reports as per HPI Musculoskeletal: Reports as per HPI Skin/Breast: Reports as per HPI Reports as per HPI Psychiatric: Reports as per HPI Endocrine: Reports as per HPI Hematologic/Lymphatic: Reports as per HPI Allergic/Immunologic: Reports as per HPI Mental Status Exam Mental Status Exam Narrative: Pt is alert and oriented; behavior is cooperative; dressed in casual attire; mood is described as good ; eye contact appropriate; Speech is normal rate, volume and prosody and not pressured; thought process is organized, future oriented. denies SI/HI/VH. Pt reports auditory hallucinations in the morning. Diagnostics Vital Signs (24Hr): Vital Signs - 24 hr 11/28/23 13:29 11/28/23 20:05 11/29/23 07:25 Temperature 97.9 F 97.5 F Pulse Rate 73 77 80 Respiratory Rate 15 14 Blood Pressure 109/61 89/50 L 95/51 L Pulse Oximetry 99 99 Oxygen Delivery Method Room Air Room Air BMI result Body Mass Index 20.7 Labs 11/04/23 14:43 11/04/23 14:43 Imaging Radiology Impressions: ITS Impressions Chest X-Ray 11/04/23 15:00 IMPRESSION: Unremarkable examination. Medications Medications Current Medications Acetaminophen (Acetaminophen 325 Mg Tablet) 650 mg PO Q6H PRN PRN Reason: Headache/Pain Mild Scale (1-3) Last Admin: 11/25/23 18:14 Dose: 650 mg Al Hydroxide/Mg Hydroxide (Magnesium Hydrox/Alum Hydrox 30 Ml Oral.Susp) 30 ml PO Q6H PRN PRN Reason: Heartburn/Nausea Last Admin: 11/17/23 14:04 Dose: 30 ml Aripiprazole (Aripiprazole 10 Mg Tablet) 10 mg PO DAILY [facility] Last Admin: 11/29/23 08:27 Dose: 10 mg Benzocaine (Throat Lozenge, Medicated Lozenge) 1 lozenge MUCOUS MEM Q2H PRN PRN Reason: Sore Throat Last Admin: 11/24/23 04:08 Dose: 1 lozenge Benztropine Mesylate (Benztropine Mesylate 0.5 Mg Tablet) 0.5 mg PO BEDTIME [facility] Last Admin: 11/28/23 21:08 Dose: 0.5 mg Clonidine HCl (Clonidine Hcl 0.1 Mg Tablet) 0.05 mg PO TID PRN; Protocol PRN Reason: anxiety Last Admin: 11/28/23 13:26 Dose: 0.05 mg Haloperidol (Haloperidol 5 Mg Tablet) 5 mg PO DAILY [facility] Last Admin: 11/29/23 08:27 Dose: 5 mg Haloperidol (Haloperidol 5 Mg Tablet) 10 mg PO BEDTIME [facility] Last Admin: 11/28/23 21:07 Dose: 10 mg Ibuprofen (Ibuprofen 600 Mg Tablet) 600 mg PO Q6H PRN PRN Reason: tooth pain Last Admin: 11/29/23 01:49 Dose: 600 mg Magnesium Hydroxide (Milk Of Magnesia 30 Ml Oral.Susp) 30 ml PO DAILY PRN PRN Reason: Constipation Methadone HCl (Methadone Hcl 20 Mg/2 Ml Oral.Conc) 45 mg PO DAILY [facility] Last Admin: 11/29/23 08:27 Dose: 45 mg Multi-Ingred Cream/Lotion/Oil/Oint (Mineral Oil/Petrolatum,White 106 Gm Tube) 1 appl TOPICAL BID [facility]; Protocol Last Admin: 11/29/23 08:28 Dose: Not Given Nicotine Polacrilex (Nicotine Polacrilex 2 Mg Gum) 4 mg BUCCAL Q2H PRN PRN Reason: Nicotine Cravings Last Admin: 11/08/23 08:56 Dose: 4 mg Senna (Sennosides 8.6 Mg Tablet) 17.2 mg PO DAILY PRN PRN Reason: Constipation Allergies Allergies Allergy/AdvReac Type Severity Reaction Status Date / Time fish derived [fish] AdvReac Anaphylaxis Verified 11/19/23 21:11 Assessment & Plan Assessment & Plan (1) Schizophrenia: Status: Acute Code(s): F20.9 - Schizophrenia, unspecified Assessment and Plan: Encourage patient to persevere with risperdal trial as she has not been on any one med long enough to gauge response. Also, headache may be caused by ENT issues. (2) Cocaine use disorder, moderate, dependence: Status: Acute Code(s): F14.20 - Cocaine dependence, uncomplicated (3) Opioid use disorder, moderate, dependence: Status: Acute Code(s): F11.20 - Opioid dependence, uncomplicated (4) Acute pharyngitis, unspecified: Status: Acute Code(s): J02.9 - Acute pharyngitis, unspecified Assessment and Plan: rapid strep ordered Plan Ms. Sow is a 43 year-old woman who self presented to [facility] ED reporting increase depression and SI. She also presents with complex system of delusions including paranoid and somatic delusions. It appears she has been mostly untreated. She also presents with substance use disorder. she was started on methadone. We discussed risks, benefits and alternative treatment options, pt agreed to start risperidone. PLAN 1. Admit to M3, cv 15 minutes checks 2. start risperidone 1mg po BID 3. aftercare planning 4. obtain collateral information 11/09: Keeping to self. Not attending groups. Pt reports she did not take the risperidal this morning because she does not like the way it made her feel; pt was unable to elaborate on this. Discussed zyprexa;risks/benefits, pt agreed to trial medication. She also requested to start hydroxyzine d/t helping with her anxiety. Pt stated, I get overwhelmed with boredom. I just want to punch myself sometimes. I feel like someone is inside me . Pt reports auditory and visual hallucinations; pt stated, the voices make fun of me and I see shadows . Pt reports she would like to go to a substance abuse program when discharged from hospital. DC Risperidal DC Seroquel Start: Zyprexa 10mg PO bedtime Cogentin 0.5mg PO bedtime Hydroxyzine 25mg PO Q6HR PRN anxiety 11/10: Pt reports feeling okay today;pt stated, I have anxiety on and off. I wacked myself in the face yesterday. I don't want to hit myself, sometimes I get overwhelmed. I love myself. I no longer feel like anyone is trying to rape me but the voices keep telling me that someone is trying to kill and rape me and my family . Pt reports visual hallucinations of shadow people . pt denies any side effects from Zyprexa. denies SI/HI. Continue current tx plan. 11/11: Pt reports feeling anxious today; pt stated, coloring usually helps with my anxiety. I didn't hit myself yesterday which is good. The zyprexa seems to be helping . Continues to report auditory and visual hallucinations. Increased Zyprexa to 15mg PO bedtime Start: clonidine 0.1mg PO daily PRN anxiety Senna 17.2mg PO daily 11/12: DC hydroxyzine per pt request, otherwise continue current mgmt. 11/13: continue current mgmt. c/o AVH. 11/14: Pt reports feeling mad today because I miss my kids. I have eleven. They're adopted. I've never been . Pt reports ongoing auditory and visual hallucinations. denies SI/HI. Discussed medications; pt reports she would be open to trying new medications such as a mood stabilizer. Pt reports she does not want to take Risperidal again because it gave me sleep paralysis . Will discuss possibility of HECK. 11/15: Pt reports feeling okay today; pt stated, I'm eating and gaining weight. it makes me happy . Pt reports ongoing auditory and visual hallucinations. denies SI/HI. T/W discussed risks/benefits of HECK; pt reports she would rather get an injection than take pills everyday . Pt stated, I know I'm schizophrenic. I think using substances really effected my mental health. I'm done with using . DC Zyprexa. Start: Abilify 5mg PO bedtime 11/16: Pt reports feeling anxious about the future ; pt stated, I don't want to live on the streets. I just want to feel better. I'm not going to use drugs anymore . denies any side effects from medication. Continues to report auditory and visual hallucinations. Pt reports not feeling well and requesting covid test. Pt reports she does not like how Trazodone makes her feel; requested to have it stopped. DC Trazodone Increase Seroquel to 100mg PO bedtime. Ordered Covid swab. 11/17: Pt reports feeling depressed today; pt stated, I miss my family. I saw my two years ago. I spoke to him before coming into the hospital. You guys can talk to him . 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 DC Seroquel DC Abilify Start: Risperidal 1mg PO BID 11/18: Pt reports feeling a little excited today; pt stated, I found out from a friend of mine that my family got green cards. I can't tell you more than that . Pt reports she can feel when one of my family members gets excited ; pt stated, maybe the risperidal opened up a window to excitement for me . denies SI/HI/VH. Reports voices have decreased today. Increase clonidine to 0.1mg PO BID PRN 11/20: Continue current plans and regimen 11/21: Patient reports feeling sad today d/t missing her family. Patient has been refusing Risperidal; pt stated, it was taking away my voices but I felt weird on it and I felt like I was dragging and had a headache . Pt continues to report auditory and visual hallucinations. denies SI/HI. Pt requested to be put back on Abilify. Start: Abilify 5mg PO bedtime Haldol 5mg PO BID PRN 11/22: Pt reports feeling anxious today; pt stated, I want to go to a substance abuse program. I don't want to be on the streets anymore. I keep worrying about tomorrow and then it makes me anxious and depressed . Pt reports she really likes the Abilify because I haven't had voices today ; pt continues to report visual hallucinations of faces . denies SI/HI. 11/23: Pt is requesting an increase in Abilify. Dose increased to 10mg PO daily. Pt stated, the clonidine is working great for my anxiety and my depression is getting better. I'm going to try to go to more groups . She report sleeping well last night. denies SI/HI/AH. Continues to report visual hallucinations. 11/24: Pt reports feeling good today; pt stated, I feel better on the Abilify. I'm hoping to get into a CSS . denies SI/HI/VH/AH. Continue current tx plan. 11/25: c/o opioid withdrawal Sx in clint, agrees to add methadone 5 mg at HS to see if it improves her Sx. reports attenuated AH. otherwise stable, continue current mgmt. 11/26 schedule haldol 5mg po BID 11/27 continue tx. 11/28 increase haldol 5mg po daily and 10mg po qhs. methadone once a day in AM 45mg po daily-- monitor oversedation. still presenting quite psychotic and with delusions affecting her insight/judgment. 11/29: Pt reports feeling good today; pt stated, I feel like my anxiety is controlled with the clonidine . Pt reports she feels this dose of methadone is working well for me . She reports only hearing voices when she first wakes up in the morning. denies SI/HI/VH. Patient educated on: diagnosis, medication risk/benefits and therapeutic strategies Informed Consent: understands Reason for continued inpatient stay Substantial Risk for: med/psych decompensation Time Spent With Patient Time: Total time managing care of this patient today _20___ minutes.
[2023-11-29] MEDS: Acetaminophen 325 MG TABLET 650 MG PO (09:29)
[2023-11-29] MEDS: cloNIDine HCL 0.1 MG TABLET 0.05 MG PO ×2 (13:42→21:27)
[2023-11-29 20:35] VITALS: BP 127/74; PULSE 73; RESP 18; TEMP 36.8
[2023-11-29] MEDS: HaloperidoL 5 MG TABLET 10 MG PO (21:26)
[2023-11-29] MEDS: Benztropine Mesylate 0.5 MG TABLET PO (21:28)
[2023-11-30] MEDS: Ibuprofen 600 MG TABLET PO ×2 (04:56→18:18)
[2023-11-30 07:46] VITALS: BP 86/51; PULSE 68; RESP 14; TEMP 36.7; O2SAT 98
[2023-11-30 08:47] VITALS: BP 114/75; PULSE 70
--- NOTE | 2023-11-30 08:48 | PC.NURSE ---
Pt BP was 86/51, pulse 68 upon initial check. Fluids provided and BP now 114/75, pulse 70. Meds held until BP was raised.
[2023-11-30] MEDS: methADONE HCl 20 MG/2 ML ORAL.CONC 45 MG PO (08:50)
[2023-11-30] MEDS: ARIPiprazole 10 MG TABLET PO (08:51)
[2023-11-30] MEDS: HaloperidoL 5 MG TABLET PO (08:51)
--- NOTE | 2023-11-30 08:57 | P.PNPSI_ITS ---
Subjective Subjective Date of Service: 11/30/23 Reason For Visit: Crisis Subjective Notes: Conditional Voluntary Interim History: Reviewed with Dr. Trent. Pt reports feeling good today; pt stated, I only had one voice today so far. I'm just having anxiety about where I'm going to go after here. I hope I get into respite and then I'll go to a correction . denies SI/HI/VH. Medication Compliance: Yes Side effects from medications: No Attending Groups: Intermittent Review of Systems Constitutional: Reports as per HPI Eyes: Reports as per HPI Reports as per HPI Cardiovascular: Reports as per HPI Respiratory: Reports as per HPI Gastrointestinal: Reports as per HPI Genitourinary: Reports as per HPI Musculoskeletal: Reports as per HPI Skin/Breast: Reports as per HPI Reports as per HPI Psychiatric: Reports as per HPI Endocrine: Reports as per HPI Hematologic/Lymphatic: Reports as per HPI Allergic/Immunologic: Reports as per HPI Mental Status Exam Mental Status Exam Narrative: Pt is alert and oriented; behavior is cooperative; dressed in casual attire; mood is described as good ; eye contact appropriate; Speech is normal rate, volume and prosody and not pressured; thought process is organized, future oriented. denies SI/HI/VH. Pt reports auditory hallucinations in the morning. Diagnostics Vital Signs (24Hr): Vital Signs - 24 hr 11/29/23 20:35 11/30/23 07:46 11/30/23 08:47 Temperature 98.2 F 98.0 F Pulse Rate 73 68 70 Respiratory Rate 18 14 Blood Pressure 127/74 86/51 L 114/75 Pulse Oximetry 98 Oxygen Delivery Method Room Air BMI result Body Mass Index 20.7 Labs 11/04/23 14:43 11/04/23 14:43 Imaging Radiology Impressions: ITS Impressions Chest X-Ray 11/04/23 15:00 IMPRESSION: Unremarkable examination. Medications Medications Current Medications Acetaminophen (Acetaminophen 325 Mg Tablet) 650 mg PO Q6H PRN PRN Reason: Headache/Pain Mild Scale (1-3) Last Admin: 11/29/23 09:29 Dose: 650 mg Al Hydroxide/Mg Hydroxide (Magnesium Hydrox/Alum Hydrox 30 Ml Oral.Susp) 30 ml PO Q6H PRN PRN Reason: Heartburn/Nausea Last Admin: 11/17/23 14:04 Dose: 30 ml Aripiprazole (Aripiprazole 10 Mg Tablet) 10 mg PO DAILY [facility] Last Admin: 11/30/23 08:51 Dose: 10 mg Benzocaine (Throat Lozenge, Medicated Lozenge) 1 lozenge MUCOUS MEM Q2H PRN PRN Reason: Sore Throat Last Admin: 11/24/23 04:08 Dose: 1 lozenge Benztropine Mesylate (Benztropine Mesylate 0.5 Mg Tablet) 0.5 mg PO BEDTIME [facility] Last Admin: 11/29/23 21:28 Dose: 0.5 mg Clonidine HCl (Clonidine Hcl 0.1 Mg Tablet) 0.05 mg PO TID PRN; Protocol PRN Reason: anxiety Last Admin: 11/29/23 21:27 Dose: 0.05 mg Haloperidol (Haloperidol 5 Mg Tablet) 5 mg PO DAILY [facility] Last Admin: 11/30/23 08:51 Dose: 5 mg Haloperidol (Haloperidol 5 Mg Tablet) 10 mg PO BEDTIME [facility] Last Admin: 11/29/23 21:26 Dose: 10 mg Ibuprofen (Ibuprofen 600 Mg Tablet) 600 mg PO Q6H PRN PRN Reason: tooth pain Last Admin: 11/30/23 04:56 Dose: 600 mg Magnesium Hydroxide (Milk Of Magnesia 30 Ml Oral.Susp) 30 ml PO DAILY PRN PRN Reason: Constipation Methadone HCl (Methadone Hcl 20 Mg/2 Ml Oral.Conc) 45 mg PO DAILY [facility] Last Admin: 11/30/23 08:50 Dose: 45 mg Multi-Ingred Cream/Lotion/Oil/Oint (Mineral Oil/Petrolatum,White 106 Gm Tube) 1 appl TOPICAL BID [facility]; Protocol Last Admin: 11/29/23 22:17 Dose: Not Given Nicotine Polacrilex (Nicotine Polacrilex 2 Mg Gum) 4 mg BUCCAL Q2H PRN PRN Reason: Nicotine Cravings Last Admin: 11/08/23 08:56 Dose: 4 mg Senna (Sennosides 8.6 Mg Tablet) 17.2 mg PO DAILY PRN PRN Reason: Constipation Allergies Allergies Allergy/AdvReac Type Severity Reaction Status Date / Time fish derived [fish] AdvReac Anaphylaxis Verified 11/19/23 21:11 Assessment & Plan Assessment & Plan (1) Schizophrenia: Status: Acute Code(s): F20.9 - Schizophrenia, unspecified Assessment and Plan: Encourage patient to persevere with risperdal trial as she has not been on any one med long enough to gauge response. Also, headache may be caused by ENT issues. (2) Cocaine use disorder, moderate, dependence: Status: Acute Code(s): F14.20 - Cocaine dependence, uncomplicated (3) Opioid use disorder, moderate, dependence: Status: Acute Code(s): F11.20 - Opioid dependence, uncomplicated (4) Acute pharyngitis, unspecified: Status: Acute Code(s): J02.9 - Acute pharyngitis, unspecified Assessment and Plan: rapid strep ordered Plan Ms. Sow is a 43 year-old woman who self presented to [facility] ED reporting increase depression and SI. She also presents with complex system of delusions including paranoid and somatic delusions. It appears she has been mostly untreated. She also presents with substance use disorder. she was started on methadone. We discussed risks, benefits and alternative treatment options, pt agreed to start risperidone. PLAN 1. Admit to M3, cv 15 minutes checks 2. start risperidone 1mg po BID 3. aftercare planning 4. obtain collateral information 11/09: Keeping to self. Not attending groups. Pt reports she did not take the risperidal this morning because she does not like the way it made her feel; pt was unable to elaborate on this. Discussed zyprexa;risks/benefits, pt agreed to trial medication. She also requested to start hydroxyzine d/t helping with her anxiety. Pt stated, I get overwhelmed with boredom. I just want to punch myself sometimes. I feel like someone is inside me . Pt reports auditory and visual hallucinations; pt stated, the voices make fun of me and I see shadows . Pt reports she would like to go to a substance abuse program when discharged from hospital. DC Risperidal DC Seroquel Start: Zyprexa 10mg PO bedtime Cogentin 0.5mg PO bedtime Hydroxyzine 25mg PO Q6HR PRN anxiety 11/10: Pt reports feeling okay today;pt stated, I have anxiety on and off. I wacked myself in the face yesterday. I don't want to hit myself, sometimes I get overwhelmed. I love myself. I no longer feel like anyone is trying to rape me but the voices keep telling me that someone is trying to kill and rape me and my family . Pt reports visual hallucinations of shadow people . pt denies any side effects from Zyprexa. denies SI/HI. Continue current tx plan. 11/11: Pt reports feeling anxious today; pt stated, coloring usually helps with my anxiety. I didn't hit myself yesterday which is good. The zyprexa seems to be helping . Continues to report auditory and visual hallucinations. Increased Zyprexa to 15mg PO bedtime Start: clonidine 0.1mg PO daily PRN anxiety Senna 17.2mg PO daily 11/12: DC hydroxyzine per pt request, otherwise continue current mgmt. 11/13: continue current mgmt. c/o AVH. 11/14: Pt reports feeling mad today because I miss my kids. I have eleven. They're adopted. I've never been . Pt reports ongoing auditory and visual hallucinations. denies SI/HI. Discussed medications; pt reports she would be open to trying new medications such as a mood stabilizer. Pt reports she does not want to take Risperidal again because it gave me sleep paralysis . Will discuss possibility of HECK. 11/15: Pt reports feeling okay today; pt stated, I'm eating and gaining weight. it makes me happy . Pt reports ongoing auditory and visual hallucinations. denies SI/HI. T/W discussed risks/benefits of HECK; pt reports she would rather get an injection than take pills everyday . Pt stated, I know I'm schizophrenic. I think using substances really effected my mental health. I'm done with using . DC Zyprexa. Start: Abilify 5mg PO bedtime 11/16: Pt reports feeling anxious about the future ; pt stated, I don't want to live on the streets. I just want to feel better. I'm not going to use drugs anymore . denies any side effects from medication. Continues to report auditory and visual hallucinations. Pt reports not feeling well and requesting covid test. Pt reports she does not like how Trazodone makes her feel; requested to have it stopped. DC Trazodone Increase Seroquel to 100mg PO bedtime. Ordered Covid swab. 11/17: Pt reports feeling depressed today; pt stated, I miss my family. I saw my two years ago. I spoke to him before coming into the hospital. You guys can talk to him . 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 DC Seroquel DC Abilify Start: Risperidal 1mg PO BID 11/18: Pt reports feeling a little excited today; pt stated, I found out from a friend of mine that my family got green cards. I can't tell you more than that . Pt reports she can feel when one of my family members gets excited ; pt stated, maybe the risperidal opened up a window to excitement for me . denies SI/HI/VH. Reports voices have decreased today. Increase clonidine to 0.1mg PO BID PRN 11/20: Continue current plans and regimen 11/21: Patient reports feeling sad today d/t missing her family. Patient has been refusing Risperidal; pt stated, it was taking away my voices but I felt weird on it and I felt like I was dragging and had a headache . Pt continues to report auditory and visual hallucinations. denies SI/HI. Pt requested to be put back on Abilify. Start: Abilify 5mg PO bedtime Haldol 5mg PO BID PRN 11/22: Pt reports feeling anxious today; pt stated, I want to go to a substance abuse program. I don't want to be on the streets anymore. I keep worrying about tomorrow and then it makes me anxious and depressed . Pt reports she really likes the Abilify because I haven't had voices today ; pt continues to report visual hallucinations of faces . denies SI/HI. 11/23: Pt is requesting an increase in Abilify. Dose increased to 10mg PO daily. Pt stated, the clonidine is working great for my anxiety and my depression is getting better. I'm going to try to go to more groups . She report sleeping well last night. denies SI/HI/AH. Continues to report visual hallucinations. 11/24: Pt reports feeling good today; pt stated, I feel better on the Abilify. I'm hoping to get into a CSS . denies SI/HI/VH/AH. Continue current tx plan. 11/25: c/o opioid withdrawal Sx in clint, agrees to add methadone 5 mg at HS to see if it improves her Sx. reports attenuated AH. otherwise stable, continue current mgmt. 11/26 schedule haldol 5mg po BID 11/27 continue tx. 11/28 increase haldol 5mg po daily and 10mg po qhs. methadone once a day in AM 45mg po daily-- monitor oversedation. still presenting quite psychotic and with delusions affecting her insight/judgment. 11/29: Pt reports feeling good today; pt stated, I feel like my anxiety is controlled with the clonidine . Pt reports she feels this dose of methadone is working well for me . She reports only hearing voices when she first wakes up in the morning. denies SI/HI/VH. 11/30: Pt reports feeling good today; pt stated, I only had one voice today so far. I'm just having anxiety about where I'm going to go after here. I hope I get into respite and then I'll go to a correction . denies SI/HI/VH. Continue current tx plan. Patient educated on: diagnosis, medication risk/benefits, substance abuse and therapeutic strategies Informed Consent: understands Reason for continued inpatient stay Substantial Risk for: med/psych decompensation Time Spent With Patient Time: Total time managing care of this patient today _20___ minutes.
[2023-11-30] MEDS: Mineral Oil/Petrolatum,White 106 GM Tube 1 APPL TOPICAL (08:59)
[2023-11-30 16:30] VITALS: BP 108/59; PULSE 81
[2023-11-30] MEDS: cloNIDine HCL 0.1 MG TABLET 0.05 MG PO (16:38)
[2023-11-30] MEDS: Acetaminophen 325 MG TABLET 650 MG PO (18:18)
[2023-11-30 19:45] VITALS: BP 108/57; PULSE 94; RESP 16; TEMP 36.8; O2SAT 98
[2023-11-30] MEDS: HaloperidoL 5 MG TABLET 10 MG PO (21:13)
[2023-11-30] MEDS: Benztropine Mesylate 0.5 MG TABLET PO (21:13)
[2023-12-01 07:00] VITALS: BMI 21.6
[2023-12-01 08:06] VITALS: BP 106/65; PULSE 69; RESP 14; TEMP 36.6; O2SAT 100
[2023-12-01] MEDS: methADONE HCl 20 MG/2 ML ORAL.CONC 45 MG PO (08:27)
[2023-12-01] MEDS: HaloperidoL 5 MG TABLET PO (08:28)
[2023-12-01] MEDS: ARIPiprazole 10 MG TABLET PO (08:28)
--- NOTE | 2023-12-01 10:02 | HO.PSYCHPN ---
Subjective Subjective Date of Service: 12/01/23 Reason For Visit: Crisis Subjective Notes: Conditional Voluntary Interim History: Reviewed with Dr. Trent. Pt reports feeling good but a little sad because I miss my family . Pt continues to report some voices ; denies SI/HI/VH. Increased Abilify to 15mg PO daily DC Haldol 5mg PO daily Medication Compliance: Yes Side effects from medications: No Attending Groups: Intermittent Review of Systems Constitutional: Reports as per HPI Eyes: Reports as per HPI Reports as per HPI Cardiovascular: Reports as per HPI Respiratory: Reports as per HPI Gastrointestinal: Reports as per HPI Genitourinary: Reports as per HPI Musculoskeletal: Reports as per HPI Skin/Breast: Reports as per HPI Reports as per HPI Psychiatric: Reports as per HPI Endocrine: Reports as per HPI Hematologic/Lymphatic: Reports as per HPI Allergic/Immunologic: Reports as per HPI Mental Status Exam Mental Status Exam Narrative: Pt is alert and oriented; behavior is cooperative; dressed in casual attire; mood is described as good ; eye contact appropriate; Speech is normal rate, volume and prosody and not pressured; thought process is organized, future oriented. denies SI/HI/VH. Pt reports auditory hallucinations in the morning. Diagnostics Vital Signs (24Hr): Vital Signs - 24 hr 11/30/23 16:30 11/30/23 19:45 12/01/23 08:06 Temperature 98.2 F 97.9 F Pulse Rate 81 94 69 Respiratory Rate 16 14 Blood Pressure 108/59 L 108/57 L 106/65 Pulse Oximetry 98 100 Oxygen Delivery Method Room Air Room Air BMI result Body Mass Index 20.7 Labs 11/04/23 14:43 11/04/23 14:43 Imaging Radiology Impressions: ITS Impressions Chest X-Ray 11/04/23 15:00 IMPRESSION: Unremarkable examination. Medications Medications Current Medications Acetaminophen (Acetaminophen 325 Mg Tablet) 650 mg PO Q6H PRN PRN Reason: Headache/Pain Mild Scale (1-3) Last Admin: 11/30/23 18:18 Dose: 650 mg Al Hydroxide/Mg Hydroxide (Magnesium Hydrox/Alum Hydrox 30 Ml Oral.Susp) 30 ml PO Q6H PRN PRN Reason: Heartburn/Nausea Last Admin: 11/17/23 14:04 Dose: 30 ml Aripiprazole (Aripiprazole 10 Mg Tablet) 10 mg PO DAILY [facility] Last Admin: 12/01/23 08:28 Dose: 10 mg Benzocaine (Throat Lozenge, Medicated Lozenge) 1 lozenge MUCOUS MEM Q2H PRN PRN Reason: Sore Throat Last Admin: 11/24/23 04:08 Dose: 1 lozenge Benztropine Mesylate (Benztropine Mesylate 0.5 Mg Tablet) 0.5 mg PO BEDTIME [facility] Last Admin: 11/30/23 21:13 Dose: 0.5 mg Clonidine HCl (Clonidine Hcl 0.1 Mg Tablet) 0.05 mg PO TID PRN; Protocol PRN Reason: anxiety Last Admin: 11/30/23 16:38 Dose: 0.05 mg Haloperidol (Haloperidol 5 Mg Tablet) 5 mg PO DAILY [facility] Last Admin: 12/01/23 08:28 Dose: 5 mg Haloperidol (Haloperidol 5 Mg Tablet) 10 mg PO BEDTIME [facility] Last Admin: 11/30/23 21:13 Dose: 10 mg Ibuprofen (Ibuprofen 600 Mg Tablet) 600 mg PO Q6H PRN PRN Reason: tooth pain Last Admin: 11/30/23 18:18 Dose: 600 mg Magnesium Hydroxide (Milk Of Magnesia 30 Ml Oral.Susp) 30 ml PO DAILY PRN PRN Reason: Constipation Methadone HCl (Methadone Hcl 20 Mg/2 Ml Oral.Conc) 45 mg PO DAILY [facility] Last Admin: 12/01/23 08:27 Dose: 45 mg Multi-Ingred Cream/Lotion/Oil/Oint (Mineral Oil/Petrolatum,White 106 Gm Tube) 1 appl TOPICAL BID [facility]; Protocol Last Admin: 12/01/23 08:45 Dose: Not Given Nicotine Polacrilex (Nicotine Polacrilex 2 Mg Gum) 4 mg BUCCAL Q2H PRN PRN Reason: Nicotine Cravings Last Admin: 11/08/23 08:56 Dose: 4 mg Senna (Sennosides 8.6 Mg Tablet) 17.2 mg PO DAILY PRN PRN Reason: Constipation Allergies Allergies Allergy/AdvReac Type Severity Reaction Status Date / Time fish derived [fish] AdvReac Anaphylaxis Verified 11/19/23 21:11 Assessment & Plan Assessment & Plan (1) Schizophrenia: Status: Acute Code(s): F20.9 - Schizophrenia, unspecified Assessment and Plan: Encourage patient to persevere with risperdal trial as she has not been on any one med long enough to gauge response. Also, headache may be caused by ENT issues. (2) Cocaine use disorder, moderate, dependence: Status: Acute Code(s): F14.20 - Cocaine dependence, uncomplicated (3) Opioid use disorder, moderate, dependence: Status: Acute Code(s): F11.20 - Opioid dependence, uncomplicated (4) Acute pharyngitis, unspecified: Status: Acute Code(s): J02.9 - Acute pharyngitis, unspecified Assessment and Plan: rapid strep ordered Plan Ms. Sow is a 43 year-old woman who self presented to [facility] reporting increase depression and SI. She also presents with complex system of delusions including paranoid and somatic delusions. It appears she has been mostly untreated. She also presents with substance use disorder. she was started on methadone. We discussed risks, benefits and alternative treatment options, pt agreed to start risperidone. PLAN 1. Admit to M3, cv 15 minutes checks 2. start risperidone 1mg po BID 3. aftercare planning 4. obtain collateral information 11/09: Keeping to self. Not attending groups. Pt reports she did not take the risperidal this morning because she does not like the way it made her feel; pt was unable to elaborate on this. Discussed zyprexa;risks/benefits, pt agreed to trial medication. She also requested to start hydroxyzine d/t helping with her anxiety. Pt stated, I get overwhelmed with boredom. I just want to punch myself sometimes. I feel like someone is inside me . Pt reports auditory and visual hallucinations; pt stated, the voices make fun of me and I see shadows . Pt reports she would like to go to a substance abuse program when discharged from hospital. DC Risperidal DC Seroquel Start: Zyprexa 10mg PO bedtime Cogentin 0.5mg PO bedtime Hydroxyzine 25mg PO Q6HR PRN anxiety 11/10: Pt reports feeling okay today;pt stated, I have anxiety on and off. I wacked myself in the face yesterday. I don't want to hit myself, sometimes I get overwhelmed. I love myself. I no longer feel like anyone is trying to rape me but the voices keep telling me that someone is trying to kill and rape me and my family . Pt reports visual hallucinations of shadow people . pt denies any side effects from Zyprexa. denies SI/HI. Continue current tx plan. 11/11: Pt reports feeling anxious today; pt stated, coloring usually helps with my anxiety. I didn't hit myself yesterday which is good. The zyprexa seems to be helping . Continues to report auditory and visual hallucinations. Increased Zyprexa to 15mg PO bedtime Start: clonidine 0.1mg PO daily PRN anxiety Senna 17.2mg PO daily 11/12: DC hydroxyzine per pt request, otherwise continue current mgmt. 11/13: continue current mgmt. c/o AVH. 11/14: Pt reports feeling mad today because I miss my kids. I have eleven. They're adopted. I've never been . Pt reports ongoing auditory and visual hallucinations. denies SI/HI. Discussed medications; pt reports she would be open to trying new medications such as a mood stabilizer. Pt reports she does not want to take Risperidal again because it gave me sleep paralysis . Will discuss possibility of HECK. 11/15: Pt reports feeling okay today; pt stated, I'm eating and gaining weight. it makes me happy . Pt reports ongoing auditory and visual hallucinations. denies SI/HI. T/W discussed risks/benefits of HECK; pt reports she would rather get an injection than take pills everyday . Pt stated, I know I'm schizophrenic. I think using substances really effected my mental health. I'm done with using . DC Zyprexa. Start: Abilify 5mg PO bedtime 11/16: Pt reports feeling anxious about the future ; pt stated, I don't want to live on the streets. I just want to feel better. I'm not going to use drugs anymore . denies any side effects from medication. Continues to report auditory and visual hallucinations. Pt reports not feeling well and requesting covid test. Pt reports she does not like how Trazodone makes her feel; requested to have it stopped. DC Trazodone Increase Seroquel to 100mg PO bedtime. Ordered Covid swab. 11/17: Pt reports feeling depressed today; pt stated, I miss my family. I saw my two years ago. I spoke to him before coming into the hospital. You guys can talk to him . 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 DC Seroquel DC Abilify Start: Risperidal 1mg PO BID 11/18: Pt reports feeling a little excited today; pt stated, I found out from a friend of mine that my family got green cards. I can't tell you more than that . Pt reports she can feel when one of my family members gets excited ; pt stated, maybe the risperidal opened up a window to excitement for me . denies SI/HI/VH. Reports voices have decreased today. Increase clonidine to 0.1mg PO BID PRN 11/20: Continue current plans and regimen 11/21: Patient reports feeling sad today d/t missing her family. Patient has been refusing Risperidal; pt stated, it was taking away my voices but I felt weird on it and I felt like I was dragging and had a headache . Pt continues to report auditory and visual hallucinations. denies SI/HI. Pt requested to be put back on Abilify. Start: Abilify 5mg PO bedtime Haldol 5mg PO BID PRN 11/22: Pt reports feeling anxious today; pt stated, I want to go to a substance abuse program. I don't want to be on the streets anymore. I keep worrying about tomorrow and then it makes me anxious and depressed . Pt reports she really likes the Abilify because I haven't had voices today ; pt continues to report visual hallucinations of faces . denies SI/HI. 11/23: Pt is requesting an increase in Abilify. Dose increased to 10mg PO daily. Pt stated, the clonidine is working great for my anxiety and my depression is getting better. I'm going to try to go to more groups . She report sleeping well last night. denies SI/HI/AH. Continues to report visual hallucinations. 11/24: Pt reports feeling good today; pt stated, I feel better on the Abilify. I'm hoping to get into a [facility] . denies SI/HI/VH/AH. Continue current tx plan. 2/16: c/o opioid withdrawal Sx in clint, agrees to add methadone 5 mg at HS to see if it improves her Sx. reports attenuated AH. otherwise stable, continue current mgmt. 11/26 schedule haldol 5mg po BID 11/27 continue tx. 11/28 increase haldol 5mg po daily and 10mg po qhs. methadone once a day in AM 45mg po daily-- monitor oversedation. still presenting quite psychotic and with delusions affecting her insight/judgment. 11/29: Pt reports feeling good today; pt stated, I feel like my anxiety is controlled with the clonidine . Pt reports she feels this dose of methadone is working well for me . She reports only hearing voices when she first wakes up in the morning. denies SI/HI/VH. 11/30: Pt reports feeling good today; pt stated, I only had one voice today so far. I'm just having anxiety about where I'm going to go after here. I hope I get into respite and then I'll go to a [facility] . denies SI/HI/VH. Continue current tx plan. 12/01: Pt reports feeling good but a little sad because I miss my family . Pt continues to report some voices ; denies SI/HI/VH. Increased Abilify to 15mg PO daily DC Haldol 5mg PO daily Patient educated on: diagnosis, medication risk/benefits and therapeutic strategies Informed Consent: understands Reason for continued inpatient stay Substantial Risk for: med/psych decompensation Time Spent With Patient Time: Total time managing care of this patient today _20___ minutes.
[2023-12-01] MEDS: cloNIDine HCL 0.1 MG TABLET 0.05 MG PO (13:13)
[2023-12-01] MEDS: Docusate Sodium 100 MG CAPSULE PO (16:09)
[2023-12-01 20:25] VITALS: BP 126/63; PULSE 73; RESP 16; TEMP 36.8; O2SAT 100
[2023-12-01] MEDS: Ibuprofen 600 MG TABLET PO (22:40)
[2023-12-01] MEDS: HaloperidoL 5 MG TABLET 10 MG PO (22:40)
[2023-12-01] MEDS: Benztropine Mesylate 0.5 MG TABLET PO (22:40)
[2023-12-02] MEDS: cloNIDine HCL 0.1 MG TABLET 0.05 MG PO ×3 (00:48→20:27)
[2023-12-02 07:10] VITALS: BP 103/57; PULSE 75; TEMP 36.5; O2SAT 99
[2023-12-02] MEDS: methADONE HCl 20 MG/2 ML ORAL.CONC 45 MG PO (08:19)
[2023-12-02] MEDS: Docusate Sodium 100 MG CAPSULE PO (08:20)
[2023-12-02] MEDS: ARIPiprazole 15 MG TABLET PO (08:20)
--- NOTE | 2023-12-02 08:59 | HO.PSYCHPN ---
Subjective Subjective Date of Service: 12/02/23 Reason For Visit: Crisis Subjective Notes: Conditional Voluntary Interim History: Reviewed with Dr. Trent. Pt reports feeling good ; pt stated, my anxiety is low and my depression is better . denies SI/HI/VH. Pt reports hearing one voice in the morning but that's it . Pt states she plans [place] going [place] [facility] [place] [facility] if not accepted to respite. Medication Compliance: Yes Side effects from medications: No Attending Groups: Intermittent Review of Systems Constitutional: Reports as per HPI Eyes: Reports as per HPI Reports as per HPI Cardiovascular: Reports as per HPI Respiratory: Reports as per HPI Gastrointestinal: Reports as per HPI Genitourinary: Reports as per HPI Musculoskeletal: Reports as per HPI Skin/Breast: Reports as per HPI Reports as per HPI Psychiatric: Reports as per HPI Endocrine: Reports as per HPI Hematologic/Lymphatic: Reports as per HPI Allergic/Immunologic: Reports as per HPI Mental Status Exam Mental Status Exam Narrative: Pt is alert and oriented; behavior is cooperative; dressed in casual attire; mood is described as good ; eye contact appropriate; Speech is normal rate, volume and prosody and not pressured; thought process is organized, future oriented. denies SI/HI/VH. Pt reports auditory hallucinations in the morning. Diagnostics Vital Signs (24Hr): Vital Signs - 24 hr 12/01/23 20:25 12/02/23 07:10 Temperature 98.2 F 97.7 F Pulse Rate 73 75 Respiratory Rate 16 Blood Pressure 126/63 103/57 L Pulse Oximetry 100 99 Oxygen Delivery Method Room Air Room Air BMI result Body Mass Index 21.6 Labs 11/04/23 14:43 11/04/23 14:43 Imaging Radiology Impressions: ITS Impressions Chest X-Ray 11/04/23 15:00 IMPRESSION: Unremarkable examination. Medications Medications Current Medications Acetaminophen (Acetaminophen 325 Mg Tablet) 650 mg PO Q6H PRN PRN Reason: Headache/Pain Mild Scale (1-3) Last Admin: 11/30/23 18:18 Dose: 650 mg Al Hydroxide/Mg Hydroxide (Magnesium Hydrox/Alum Hydrox 30 Ml Oral.Susp) 30 ml PO Q6H PRN PRN Reason: Heartburn/Nausea Last Admin: 11/17/23 14:04 Dose: 30 ml Aripiprazole (Aripiprazole 15 Mg Tablet) 15 mg PO DAILY [facility] Last Admin: 12/02/23 08:20 Dose: 15 mg Benzocaine (Throat Lozenge, Medicated Lozenge) 1 lozenge MUCOUS MEM Q2H PRN PRN Reason: Sore Throat Last Admin: 11/24/23 04:08 Dose: 1 lozenge Benztropine Mesylate (Benztropine Mesylate 0.5 Mg Tablet) 0.5 mg PO BEDTIME [facility] Last Admin: 12/01/23 22:40 Dose: 0.5 mg Clonidine HCl (Clonidine Hcl 0.1 Mg Tablet) 0.05 mg PO TID PRN; Protocol PRN Reason: anxiety Last Admin: 12/02/23 00:48 Dose: 0.05 mg Docusate Sodium (Docusate Sodium 100 Mg Capsule) 100 mg PO DAILY [facility] Last Admin: 12/02/23 08:20 Dose: 100 mg Haloperidol (Haloperidol 5 Mg Tablet) 10 mg PO BEDTIME [facility] Last Admin: 12/01/23 22:40 Dose: 10 mg Ibuprofen (Ibuprofen 600 Mg Tablet) 600 mg PO Q6H PRN PRN Reason: tooth pain Last Admin: 12/01/23 22:40 Dose: 600 mg Magnesium Hydroxide (Milk Of Magnesia 30 Ml Oral.Susp) 30 ml PO DAILY PRN PRN Reason: Constipation Methadone HCl (Methadone Hcl 20 Mg/2 Ml Oral.Conc) 45 mg PO DAILY [facility] Last Admin: 12/02/23 08:19 Dose: 45 mg Multi-Ingred Cream/Lotion/Oil/Oint (Mineral Oil/Petrolatum,White 106 Gm Tube) 1 appl TOPICAL BID [facility]; Protocol Last Admin: 12/02/23 08:30 Dose: Not Given Nicotine Polacrilex (Nicotine Polacrilex 2 Mg Gum) 4 mg BUCCAL Q2H PRN PRN Reason: Nicotine Cravings Last Admin: 11/08/23 08:56 Dose: 4 mg Senna (Sennosides 8.6 Mg Tablet) 17.2 mg PO DAILY PRN PRN Reason: Constipation Allergies Allergies Allergy/AdvReac Type Severity Reaction Status Date / Time fish derived [fish] AdvReac Anaphylaxis Verified 11/19/23 21:11 Assessment & Plan Assessment & Plan (1) Schizophrenia: Status: Acute Code(s): F20.9 - Schizophrenia, unspecified Assessment and Plan: Encourage patient to persevere with risperdal trial as she has not been on any one med long enough to gauge response. Also, headache may be caused by ENT issues. (2) Cocaine use disorder, moderate, dependence: Status: Acute Code(s): F14.20 - Cocaine dependence, uncomplicated (3) Opioid use disorder, moderate, dependence: Status: Acute Code(s): F11.20 - Opioid dependence, uncomplicated (4) Acute pharyngitis, unspecified: Status: Acute Code(s): J02.9 - Acute pharyngitis, unspecified Assessment and Plan: rapid strep ordered Plan Ms. Sow is a 43 year-old woman who self presented to [facility] [place] [facility] reporting increase depression and SI. She also presents with complex system of delusions including paranoid and somatic delusions. It appears she has been mostly untreated. She also presents with substance use disorder. she was started on methadone. We discussed risks, benefits and alternative treatment options, pt agreed to start risperidone. PLAN 1. Admit to M3, cv 15 minutes checks 2. start risperidone 1mg po BID 3. aftercare planning 4. obtain collateral information 11/09: Keeping to self. Not attending groups. Pt reports she did not take the risperidal this morning because she does not like the way it made her feel; pt was unable to elaborate on this. Discussed zyprexa;risks/benefits, pt agreed to trial medication. She also requested to start hydroxyzine d/t helping with her anxiety. Pt stated, I get overwhelmed with boredom. I just want to punch myself sometimes. I feel like someone is inside me . Pt reports auditory and visual hallucinations; pt stated, the voices make fun of me and I see shadows . Pt reports she would like to go to a substance abuse program when discharged from hospital. DC Risperidal DC Seroquel Start: Zyprexa 10mg PO bedtime Cogentin 0.5mg PO bedtime Hydroxyzine 25mg PO Q6HR PRN anxiety 11/10: Pt reports feeling okay today;pt stated, I have anxiety on and off. I wacked myself in the face yesterday. I don't want to hit myself, sometimes I get overwhelmed. I love myself. I no longer feel like anyone is trying to rape me but the voices keep telling me that someone is trying to kill and rape me and my family . Pt reports visual hallucinations of shadow people . pt denies any side effects from Zyprexa. denies SI/HI. Continue current tx plan. 11/11: Pt reports feeling anxious today; pt stated, coloring usually helps with my anxiety. I didn't hit myself yesterday which is good. The zyprexa seems to be helping . Continues to report auditory and visual hallucinations. Increased Zyprexa to 15mg PO bedtime Start: clonidine 0.1mg PO daily PRN anxiety Senna 17.2mg PO daily 11/12: DC hydroxyzine per pt request, otherwise continue current mgmt. 11/13: continue current mgmt. c/o [facility]. 11/14: Pt reports feeling mad today because I miss my kids. I have eleven. They're adopted. I've never been . Pt reports ongoing auditory and visual hallucinations. denies SI/HI. Discussed medications; pt reports she would be open to trying new medications such as a mood stabilizer. Pt reports she does not want to take Risperidal again because it gave me sleep paralysis . Will discuss possibility of HECK. 11/15: Pt reports feeling okay today; pt stated, I'm eating and gaining weight. it makes me happy . Pt reports ongoing auditory and visual hallucinations. denies SI/HI. T/W discussed risks/benefits of HECK; pt reports she would rather get an injection than take pills everyday . Pt stated, I know I'm schizophrenic. I think using substances really effected my mental health. I'm done with using . DC Zyprexa. Start: Abilify 5mg PO bedtime 11/16: Pt reports feeling anxious about the future ; pt stated, I don't want to live on the streets. I just want to feel better. I'm not going to use drugs anymore . denies any side effects from medication. Continues to report auditory and visual hallucinations. Pt reports not feeling well and requesting covid test. Pt reports she does not like how Trazodone makes her feel; requested to have it stopped. DC Trazodone Increase Seroquel to 100mg PO bedtime. Ordered Covid swab. 11/17: Pt reports feeling depressed today; pt stated, I miss my family. I saw my two years ago. I spoke to him before coming into the hospital. You guys can talk to him . 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 DC Seroquel DC Abilify Start: Risperidal 1mg PO BID 11/18: Pt reports feeling a little excited today; pt stated, I found out from a friend of mine that my family got green cards. I can't tell you more than that . Pt reports she can feel when one of my family members gets excited ; pt stated, maybe the risperidal opened up a window to excitement for me . denies SI/HI/VH. Reports voices have decreased today. Increase clonidine to 0.1mg PO BID PRN 11/20: Continue current plans and regimen 11/21: Patient reports feeling sad today d/t missing her family. Patient has been refusing Risperidal; pt stated, it was taking away my voices but I felt weird on it and I felt like I was dragging and had a headache . Pt continues to report auditory and visual hallucinations. denies SI/HI. Pt requested to be put back on Abilify. Start: Abilify 5mg PO bedtime Haldol 5mg PO BID PRN 11/22: Pt reports feeling anxious today; pt stated, I want to go to a substance abuse program. I don't want to be on the streets anymore. I keep worrying about tomorrow and then it makes me anxious and depressed . Pt reports she really likes the Abilify because I haven't had voices today ; pt continues to report visual hallucinations of faces . denies SI/HI. 11/23: Pt is requesting an increase in Abilify. Dose increased to 10mg PO daily. Pt stated, the clonidine is working great for my anxiety and my depression is getting better. I'm going to try to go to more groups . She report sleeping well last night. denies SI/HI/AH. Continues to report visual hallucinations. 11/24: Pt reports feeling good today; pt stated, I feel better on the Abilify. I'm hoping to get into a [facility] . denies SI/HI/VH/AH. Continue current tx plan. 11/25: c/o opioid withdrawal Sx in clint, agrees to add methadone 5 mg at HS to see if it improves her Sx. reports attenuated AH. otherwise stable, continue current mgmt. 11/26 schedule haldol 5mg po BID 11/27 continue tx. 11/28 increase haldol 5mg po daily and 10mg po qhs. methadone once a day in AM 45mg po daily-- monitor oversedation. still presenting quite psychotic and with delusions affecting her insight/judgment. 11/29: Pt reports feeling good today; pt stated, I feel like my anxiety is controlled with the clonidine . Pt reports she feels this dose of methadone is working well for me . She reports only hearing voices when she first wakes up in the morning. denies SI/HI/VH. 11/30: Pt reports feeling good today; pt stated, I only had one voice today so far. I'm just having anxiety about where I'm going to go after here. I hope I get into respite and then I[place] go to a [place] [facility] [place] . denies SI/HI/VH. Continue current tx plan. 12/01: Pt reports feeling good but a little sad because I miss my family . Pt continues to report some voices ; denies SI/HI/VH. Increased Abilify to 15mg PO daily DC Haldol 5mg PO daily 12/02: Pt reports feeling good ; pt stated, my anxiety is low and my depression is better . denies SI/HI/VH. Pt reports hearing one voice in the morning but that's it . Pt states she plans on going to the [place] [facility] next week if not accepted to respite. continue current tx plan. Patient educated on: diagnosis and medication risk/benefits Informed Consent: understands Reason for continued inpatient stay Substantial Risk for: med/psych decompensation Time Spent With Patient Time: Total time managing care of this patient today _20___ minutes.
[2023-12-02 14:04] LABS: COVID-19 Test Negative (Negative); IDNOW Serial# 6674DD1D
[2023-12-02 19:55] VITALS: BP 128/64; PULSE 72; RESP 15; TEMP 36.4; O2SAT 98
[2023-12-02] MEDS: HaloperidoL 5 MG TABLET 10 MG PO (20:28)
[2023-12-02] MEDS: Benztropine Mesylate 0.5 MG TABLET PO (20:29)
[2023-12-02] MEDS: Ibuprofen 600 MG TABLET PO (21:13)
[2023-12-03 07:50] VITALS: BP 87/51; PULSE 79; RESP 14; TEMP 37.4; O2SAT 98
[2023-12-03] MEDS: Docusate Sodium 100 MG CAPSULE PO (07:56)
[2023-12-03] MEDS: ARIPiprazole 15 MG TABLET PO (07:56)
[2023-12-03] MEDS: methADONE HCl 20 MG/2 ML ORAL.CONC 45 MG PO (07:57)
--- NOTE | 2023-12-03 11:54 | HO.PSYCHPN ---
Subjective Subjective Date of Service: 12/03/23 Reason For Visit: Crisis Subjective Notes: Conditional Voluntary Interim History: The nursing staff reported the patient had been compliant with medications she wants to go to senior care but most likely she will be discharged to respite. On interview the patient complains of somatic symptoms such as nasal discharge and mild upper respiratory symptoms. She agreed to have blood work for tomorrow. No evidence of safety concerns at this moment. Mental Status Exam Mental Status Exam Patient Appearance: Appropriate Patient Orientation: Person and Situation Level of Consciousness: Awake and Appropriate Patient Behavior: Guarded Mood Description: Calm Affect Description: Constricted Patient Cognition Impaired: Yes Ability to Follow Directions: Good Speech Pattern: Clear Hallucinations: None Delusions: Not Present Thought Process: Distracted Thought Content: positive for Garrison and positive for Circumstantial Judgement: Fair Diagnostics Vital Signs (24Hr): Vital Signs - 24 hr 12/02/23 19:55 12/03/23 07:50 Temperature 97.6 F 99.3 F Pulse Rate 72 79 Respiratory Rate 15 14 Blood Pressure 128/64 87/51 L Pulse Oximetry 98 98 Oxygen Delivery Method Room Air Room Air BMI result Body Mass Index 21.6 Labs 11/04/23 14:43 11/04/23 14:43 Labs: Laboratory Results - last 48 hr 12/02/23 13:22 COVID-19 ([facility]) Negative COVID-19 Clin Com See Note Imaging Radiology Impressions: ITS Impressions Chest X-Ray 11/04/23 15:00 IMPRESSION: Unremarkable examination. Medications Medications Current Medications Acetaminophen (Acetaminophen 325 Mg Tablet) 650 mg PO Q6H PRN PRN Reason: Headache/Pain Mild Scale (1-3) Last Admin: 11/30/23 18:18 Dose: 650 mg Al Hydroxide/Mg Hydroxide (Magnesium Hydrox/Alum Hydrox 30 Ml Oral.Susp) 30 ml PO Q6H PRN PRN Reason: Heartburn/Nausea Last Admin: 11/17/23 14:04 Dose: 30 ml Aripiprazole (Aripiprazole 15 Mg Tablet) 15 mg PO DAILY [facility] Last Admin: 12/03/23 07:56 Dose: 15 mg Benzocaine (Throat Lozenge, Medicated Lozenge) 1 lozenge MUCOUS MEM Q2H PRN PRN Reason: Sore Throat Last Admin: 11/24/23 04:08 Dose: 1 lozenge Benztropine Mesylate (Benztropine Mesylate 0.5 Mg Tablet) 0.5 mg PO BEDTIME [facility] Last Admin: 12/02/23 20:29 Dose: 0.5 mg Clonidine HCl (Clonidine Hcl 0.1 Mg Tablet) 0.05 mg PO TID PRN; Protocol PRN Reason: anxiety Last Admin: 12/02/23 20:27 Dose: 0.05 mg Docusate Sodium (Docusate Sodium 100 Mg Capsule) 100 mg PO DAILY [facility] Last Admin: 12/03/23 07:56 Dose: 100 mg Haloperidol (Haloperidol 5 Mg Tablet) 10 mg PO BEDTIME [facility] Last Admin: 12/02/23 20:28 Dose: 10 mg Ibuprofen (Ibuprofen 600 Mg Tablet) 600 mg PO Q6H PRN PRN Reason: tooth pain Last Admin: 12/02/23 21:13 Dose: 600 mg Magnesium Hydroxide (Milk Of Magnesia 30 Ml Oral.Susp) 30 ml PO DAILY PRN PRN Reason: Constipation Methadone HCl (Methadone Hcl 20 Mg/2 Ml Oral.Conc) 45 mg PO DAILY [facility] Last Admin: 12/03/23 07:57 Dose: 45 mg Multi-Ingred Cream/Lotion/Oil/Oint (Mineral Oil/Petrolatum,White 106 Gm Tube) 1 appl TOPICAL BID [facility]; Protocol Last Admin: 12/03/23 08:19 Dose: Not Given Nicotine Polacrilex (Nicotine Polacrilex 2 Mg Gum) 4 mg BUCCAL Q2H PRN PRN Reason: Nicotine Cravings Last Admin: 11/08/23 08:56 Dose: 4 mg Senna (Sennosides 8.6 Mg Tablet) 17.2 mg PO DAILY PRN PRN Reason: Constipation Allergies Allergies Allergy/AdvReac Type Severity Reaction Status Date / Time fish derived [fish] AdvReac Anaphylaxis Verified 11/19/23 21:11 Assessment & Plan Assessment & Plan (1) Schizophrenia: Status: Acute Code(s): F20.9 - Schizophrenia, unspecified Assessment and Plan: Encourage patient to persevere with risperdal trial as she has not been on any one med long enough to gauge response. Also, headache may be caused by ENT issues. (2) Cocaine use disorder, moderate, dependence: Status: Acute Code(s): F14.20 - Cocaine dependence, uncomplicated (3) Opioid use disorder, moderate, dependence: Status: Acute Code(s): F11.20 - Opioid dependence, uncomplicated (4) Acute pharyngitis, unspecified: Status: Acute Code(s): J02.9 - Acute pharyngitis, unspecified Assessment and Plan: rapid strep ordered Plan Ms. Sow is a 43 year-old woman who self presented to [facility] ED reporting increase depression and SI. She also presents with complex system of delusions including paranoid and somatic delusions. It appears she has been mostly untreated. She also presents with substance use disorder. she was started on methadone. We discussed risks, benefits and alternative treatment options, pt agreed to start risperidone. PLAN 1. Admit to M3, cv 15 minutes checks 2. start risperidone 1mg po BID 3. aftercare planning 4. obtain collateral information 11/09: Keeping to self. Not attending groups. Pt reports she did not take the risperidal this morning because she does not like the way it made her feel; pt was unable to elaborate on this. Discussed zyprexa;risks/benefits, pt agreed to trial medication. She also requested to start hydroxyzine d/t helping with her anxiety. Pt stated, I get overwhelmed with boredom. I just want to punch myself sometimes. I feel like someone is inside me . Pt reports auditory and visual hallucinations; pt stated, the voices make fun of me and I see shadows . Pt reports she would like to go to a substance abuse program when discharged from hospital. DC Risperidal DC Seroquel Start: Zyprexa 10mg PO bedtime Cogentin 0.5mg PO bedtime Hydroxyzine 25mg PO Q6HR PRN anxiety 11/10: Pt reports feeling okay today;pt stated, I have anxiety on and off. I wacked myself in the face yesterday. I don't want to hit myself, sometimes I get overwhelmed. I love myself. I no longer feel like anyone is trying to rape me but the voices keep telling me that someone is trying to kill and rape me and my family . Pt reports visual hallucinations of shadow people . pt denies any side effects from Zyprexa. denies SI/HI. Continue current tx plan. 11/11: Pt reports feeling anxious today; pt stated, coloring usually helps with my anxiety. I didn't hit myself yesterday which is good. The zyprexa seems to be helping . Continues to report auditory and visual hallucinations. Increased Zyprexa to 15mg PO bedtime Start: clonidine 0.1mg PO daily PRN anxiety Senna 17.2mg PO daily 11/12: DC hydroxyzine per pt request, otherwise continue current mgmt. 11/13: continue current mgmt. c/o AVH. 11/14: Pt reports feeling mad today because I miss my kids. I have eleven. They're adopted. I've never been . Pt reports ongoing auditory and visual hallucinations. denies SI/HI. Discussed medications; pt reports she would be open to trying new medications such as a mood stabilizer. Pt reports she does not want to take Risperidal again because it gave me sleep paralysis . Will discuss possibility of HECK. 11/15: Pt reports feeling okay today; pt stated, I'm eating and gaining weight. it makes me happy . Pt reports ongoing auditory and visual hallucinations. denies SI/HI. T/W discussed risks/benefits of HECK; pt reports she would rather get an injection than take pills everyday . Pt stated, I know I'm schizophrenic. I think using substances really effected my mental health. I'm done with using . DC Zyprexa. Start: Abilify 5mg PO bedtime 11/16: Pt reports feeling anxious about the future ; pt stated, I don't want to live on the streets. I just want to feel better. I'm not going to use drugs anymore . denies any side effects from medication. Continues to report auditory and visual hallucinations. Pt reports not feeling well and requesting covid test. Pt reports she does not like how Trazodone makes her feel; requested to have it stopped. DC Trazodone Increase Seroquel to 100mg PO bedtime. Ordered Covid swab. 11/17: Pt reports feeling depressed today; pt stated, I miss my family. I saw my two years ago. I spoke to him before coming into the hospital. You guys can talk to him . 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 DC Seroquel DC Abilify Start: Risperidal 1mg PO BID 11/18: Pt reports feeling a little excited today; pt stated, I found out from a friend of mine that my family got green cards. I can't tell you more than that . Pt reports she can feel when one of my family members gets excited ; pt stated, maybe the risperidal opened up a window to excitement for me . denies SI/HI/VH. Reports voices have decreased today. Increase clonidine to 0.1mg PO BID PRN 11/20: Continue current plans and regimen 11/21: Patient reports feeling sad today d/t missing her family. Patient has been refusing Risperidal; pt stated, it was taking away my voices but I felt weird on it and I felt like I was dragging and had a headache . Pt continues to report auditory and visual hallucinations. denies SI/HI. Pt requested to be put back on Abilify. Start: Abilify 5mg PO bedtime Haldol 5mg PO BID PRN 11/22: Pt reports feeling anxious today; pt stated, I want to go to a substance abuse program. I don't want to be on the streets anymore. I keep worrying about tomorrow and then it makes me anxious and depressed . Pt reports she really likes the Abilify because I haven't had voices today ; pt continues to report visual hallucinations of faces . denies SI/HI. 11/23: Pt is requesting an increase in Abilify. Dose increased to 10mg PO daily. Pt stated, the clonidine is working great for my anxiety and my depression is getting better. I'm going to try to go to more groups . She report sleeping well last night. denies SI/HI/AH. Continues to report visual hallucinations. 11/24: Pt reports feeling good today; pt stated, I feel better on the Abilify. I'm hoping to get into a [facility] . denies SI/HI/VH/AH. Continue current tx plan. 11/25: c/o opioid withdrawal Sx in clint, agrees to add methadone 5 mg at HS to see if it improves her Sx. reports attenuated AH. otherwise stable, continue current mgmt. 11/26 schedule haldol 5mg po BID 11/27 continue tx. 11/28 increase haldol 5mg po daily and 10mg po qhs. methadone once a day in AM 45mg po daily-- monitor oversedation. still presenting quite psychotic and with delusions affecting her insight/judgment. 11/29: Pt reports feeling good today; pt stated, I feel like my anxiety is controlled with the clonidine . Pt reports she feels this dose of methadone is working well for me . She reports only hearing voices when she first wakes up in the morning. denies SI/HI/VH. 11/30: Pt reports feeling good today; pt stated, I only had one voice today so far. I'm just having anxiety about where I'm going to go after here. I hope I get into respite and then I'll go to a assisted . denies SI/HI/VH. Continue current tx plan. 12/01: Pt reports feeling good but a little sad because I miss my family . Pt continues to report some voices ; denies SI/HI/VH. Increased Abilify to 15mg PO daily DC Haldol 5mg PO daily 12/02: Pt reports feeling good ; pt stated, my anxiety is low and my depression is better . denies SI/HI/VH. Pt reports hearing one voice in the morning but that's it . Pt states she plans on going to the assisted next week if not accepted to respite. continue current tx plan. 12/03: The nursing staff reported the patient had been complaining of somatic symptoms she does not like the idea of being discharged to respite or assisted. We are ordering a CBC with differential and basic metabolic panel to rule out medical problems. Keep on same treatment. Reason for continued inpatient stay Substantial Risk for: inability to function, rapid decompensation and med/psych decompensation Time Spent With Patient Time: Total time managing care of this patient today __20__ minutes.
[2023-12-03] MEDS: Magnesium Hydrox/Alum Hydrox 30 ML ORAL.SUSP PO (13:19)
[2023-12-03] MEDS: Calcium Carbonate 750 MG TAB.CHEW PO (17:06)
[2023-12-03] MEDS: cloNIDine HCL 0.1 MG TABLET 0.05 MG PO ×2 (17:06→20:47)
[2023-12-03 20:10] VITALS: BP 116/63; PULSE 84; RESP 16; TEMP 36.6; O2SAT 98
[2023-12-03] MEDS: HaloperidoL 5 MG TABLET 10 MG PO (20:47)
[2023-12-03] MEDS: Benztropine Mesylate 0.5 MG TABLET PO (20:48)
[2023-12-04 08:10] VITALS: BP 97/50; PULSE 66; RESP 14; TEMP 36.6; O2SAT 99
[2023-12-04 08:11] LABS: MANUAL DIFF FLAG NO
[2023-12-04 08:14] LABS: Basophils Absolute Auto 0.1 X10*3/uL (0.0-0.2); Basophils Percent Auto 0.7 % (0-2); Eosinophils Absolute Auto 0.1 X10*3/uL (0.0-0.4); Eosinophils Percent Auto 1.5 % (0-4); Hematocrit 36.5 % (37.0-47.0); Hemoglobin 11.5 g/dl (12.0-16.0); Imm Gran Abs Auto 0.02 X10*3/uL (0.00-0.03); Imm Gran Pct Auto 0.3 % (0.0-0.4); Lymphocytes Absolute Auto 2.4 X10*3/uL (1.2-4.9); Lymphocytes Percent Auto 35.2 % (20-40); Mean Corpuscular HGB Conc 31.5 g/dl (31.0-35.0); Mean Corpuscular Hemoglobin 25.4 pg (27.0-33.0); Mean Corpuscular Volume 80.8 fL (80.0-98.0); Mean Platelet Volume 8.9 fL (9.4-12.3); Monocytes Absolute Auto 0.6 X10*3/uL (0.1-1.2); Monocytes Percent Auto 9.1 % (2-11); Neutrophils Absolute Auto 3.6 x10*3/uL (2.0-8.3); Neutrophils Percent Auto 53.2 % (45-73); Platelet Count 313 X10*3/uL (160-400); Red Blood Count 4.52 X10*6/uL (4.20-5.50); Red Cell Distribution Width 13.8 % (11.0-16.0); White Blood Count 6.8 X10*3/uL (4.8-10.8)
[2023-12-04 08:35] LABS: Anion Gap 12 (12-20); Blood Urea Nitrogen 14 mg/dL (9-16); Calcium 9.2 mg/dL (8.4-10.2); Carbon Dioxide 29 mmol/L (22-29); Chloride 106 mmol/L (96-108); Creatinine Clr Calc Pharmacy 71.4; Estimated Glomerular Filt Rate > 60; Glucose Random 89 mg/dL (60-115); Potassium 4.5 mmol/L (3.3-5.1); Sodium 142 mmol/L (135-145)
[2023-12-04] MEDS: Docusate Sodium 100 MG CAPSULE PO (08:44)
[2023-12-04] MEDS: ARIPiprazole 15 MG TABLET PO (08:44)
[2023-12-04] MEDS: methADONE HCl 20 MG/2 ML ORAL.CONC 45 MG PO (08:44)
[2023-12-04] MEDS: Acetaminophen 325 MG TABLET 650 MG PO (09:07)
[2023-12-04] MEDS: Nicotine Polacrilex 2 MG GUM 4 MG BUCCAL (10:07)
[2023-12-04] MEDS: cloNIDine HCL 0.1 MG TABLET 0.05 MG PO ×2 (14:38→20:57)
--- NOTE | 2023-12-04 14:45 | HO.PSYCHPN ---
Subjective Subjective Date of Service: 12/04/23 Reason For Visit: Crisis Subjective Notes: Conditional Voluntary Interim History: The nursing staff reported the patient has been isolative, she attend to the art group. She complained of some visual hallucinations mostly shadows. She has been pleasant cooperative compliant with meds. We did blood work yesterday and there is no evidence of infections and it seems that most of her symptoms are related to allergy so she agreed to start clonidine daily. Mental Status Exam Mental Status Exam Patient Appearance: Appropriate Patient Orientation: Person, Place, Time and Situation Level of Consciousness: Awake and Appropriate Patient Behavior: Appropriate and Passive Mood Description: Calm Affect Description: Constricted Ability to Follow Directions: Good Speech Pattern: Clear Hallucinations: None Delusions: Not Present Thought Process: Distracted and Slowed Thinking Thought Content: positive for [place] and positive for Circumstantial Judgement: Fair Diagnostics Vital Signs (24Hr): Vital Signs - 24 hr 12/03/23 20:10 12/04/23 08:10 Temperature 97.9 F 97.9 F Pulse Rate 84 66 Respiratory Rate 16 14 Blood Pressure 116/63 97/50 L Pulse Oximetry 98 99 Oxygen Delivery Method Room Air Room Air BMI result Body Mass Index 21.6 Labs 12/04/23 07:51 12/04/23 07:51 Labs: Laboratory Results - last 48 hr 12/04/23 07:51 WBC 6.8 RBC 4.52 Hgb 11.5 L Hct 36.5 L MCV 80.8 MCH 25.4 L MCHC 31.5 RDW 13.8 Plt Count 313 MPV 8.9 L Immature Gran % (Auto) 0.3 Neut % (Auto) 53.2 Lymph % (Auto) 35.2 [place] % (Auto) 9.1 Eos % (Auto) 1.5 Baso % (Auto) 0.7 Lymph # (Auto) 2.4 [place] # (Auto) 0.6 Eos # (Auto) 0.1 Baso # (Auto) 0.1 Abs Immat Gran (auto) 0.02 Absolute Neuts (auto) 3.6 Absolute Nucleated RBC 0.000 Nucleated RBC % (auto) 0.0 Sodium 142 Potassium 4.5 Chloride 106 Carbon Dioxide 29 Anion Gap 12 BUN 14 Creatinine 0.82 Estim Creat Clear Calc 71.4 Estimated GFR > 60 Random Glucose 89 Calcium 9.2 Imaging Radiology Impressions: ITS Impressions Chest X-Ray 11/04/23 15:00 IMPRESSION: Unremarkable examination. Medications Medications Current Medications Acetaminophen (Acetaminophen 325 Mg Tablet) 650 mg PO Q6H PRN PRN Reason: Headache/Pain Mild Scale (1-3) Last Admin: 12/04/23 09:07 Dose: 650 mg Al Hydroxide/Mg Hydroxide (Magnesium Hydrox/Alum Hydrox 30 Ml Oral.Susp) 30 ml PO Q6H PRN PRN Reason: Heartburn/Nausea Last Admin: 12/03/23 13:19 Dose: 30 ml Aripiprazole (Aripiprazole 15 Mg Tablet) 15 mg PO DAILY [facility] Last Admin: 12/04/23 08:44 Dose: 15 mg Benzocaine (Throat Lozenge, Medicated Lozenge) 1 lozenge MUCOUS MEM Q2H PRN PRN Reason: Sore Throat Last Admin: 11/24/23 04:08 Dose: 1 lozenge Benztropine Mesylate (Benztropine Mesylate 0.5 Mg Tablet) 0.5 mg PO BEDTIME [facility] Last Admin: 12/03/23 20:48 Dose: 0.5 mg Calcium Carbonate (Calcium Carbonate 750 Mg Tab.Chew) 750 mg PO Q4H PRN PRN Reason: Heartburn Last Admin: 12/03/23 17:06 Dose: 750 mg Clonidine HCl (Clonidine Hcl 0.1 Mg Tablet) 0.05 mg PO TID PRN; Protocol PRN Reason: anxiety Last Admin: 12/03/23 20:47 Dose: 0.05 mg Docusate Sodium (Docusate Sodium 100 Mg Capsule) 100 mg PO DAILY [facility] Last Admin: 12/04/23 08:44 Dose: 100 mg Haloperidol (Haloperidol 5 Mg Tablet) 10 mg PO BEDTIME [facility] Last Admin: 12/03/23 20:47 Dose: 10 mg Ibuprofen (Ibuprofen 600 Mg Tablet) 600 mg PO Q6H PRN PRN Reason: tooth pain Last Admin: 12/02/23 21:13 Dose: 600 mg Magnesium Hydroxide (Milk Of Magnesia 30 Ml Oral.Susp) 30 ml PO DAILY PRN PRN Reason: Constipation Methadone HCl (Methadone Hcl 20 Mg/2 Ml Oral.Conc) 45 mg PO DAILY [facility] Last Admin: 12/04/23 08:44 Dose: 45 mg Multi-Ingred Cream/Lotion/Oil/Oint (Mineral Oil/Petrolatum,White 106 Gm Tube) 1 appl TOPICAL BID [facility]; Protocol Last Admin: 12/04/23 08:47 Dose: Not Given Nicotine Polacrilex (Nicotine Polacrilex 2 Mg Gum) 4 mg BUCCAL Q2H PRN PRN Reason: Nicotine Cravings Last Admin: 12/04/23 10:07 Dose: 4 mg Senna (Sennosides 8.6 Mg Tablet) 17.2 mg PO DAILY PRN PRN Reason: Constipation Allergies Allergies Allergy/AdvReac Type Severity Reaction Status Date / Time fish derived [fish] AdvReac Anaphylaxis Verified 11/19/23 21:11 Assessment & Plan Assessment & Plan (1) Schizophrenia: Status: Acute Code(s): F20.9 - Schizophrenia, unspecified Assessment and Plan: Encourage patient to persevere with risperdal trial as she has not been on any one med long enough to gauge response. Also, headache may be caused by ENT issues. (2) Cocaine use disorder, moderate, dependence: Status: Acute Code(s): F14.20 - Cocaine dependence, uncomplicated (3) Opioid use disorder, moderate, dependence: Status: Acute Code(s): F11.20 - Opioid dependence, uncomplicated (4) Acute pharyngitis, unspecified: Status: Acute Code(s): J02.9 - Acute pharyngitis, unspecified Assessment and Plan: rapid strep ordered Plan Ms. oSw is a 43 year-old woman who self presented to [facility] reporting increase depression and SI. She also presents with complex system of delusions including paranoid and somatic delusions. It appears she has been mostly untreated. She also presents with substance use disorder. she was started on methadone. We discussed risks, benefits and alternative treatment options, pt agreed to start risperidone. PLAN 1. Admit to M3, cv 15 minutes checks 2. start risperidone 1mg po BID 3. aftercare planning 4. obtain collateral information 11/09: Keeping to self. Not attending groups. Pt reports she did not take the risperidal this morning because she does not like the way it made her feel; pt was unable to elaborate on this. Discussed zyprexa;risks/benefits, pt agreed to trial medication. She also requested to start hydroxyzine d/t helping with her anxiety. Pt stated, I get overwhelmed with boredom. I just want to punch myself sometimes. I feel like someone is inside me . Pt reports auditory and visual hallucinations; pt stated, the voices make fun of me and I see shadows . Pt reports she would like to go to a substance abuse program when discharged from hospital. DC Risperidal DC Seroquel Start: Zyprexa 10mg PO bedtime Cogentin 0.5mg PO bedtime Hydroxyzine 25mg PO Q6HR PRN anxiety 11/10: Pt reports feeling okay today;pt stated, I have anxiety on and off. I wacked myself in the face yesterday. I don't want to hit myself, sometimes I get overwhelmed. I love myself. I no longer feel like anyone is trying to rape me but the voices keep telling me that someone is trying to kill and rape me and my family . Pt reports visual hallucinations of shadow people . pt denies any side effects from Zyprexa. denies SI/HI. Continue current tx plan. 11/11: Pt reports feeling anxious today; pt stated, coloring usually helps with my anxiety. I didn't hit myself yesterday which is good. The zyprexa seems to be helping . Continues to report auditory and visual hallucinations. Increased Zyprexa to 15mg PO bedtime Start: clonidine 0.1mg PO daily PRN anxiety Senna 17.2mg PO daily 11/12: DC hydroxyzine per pt request, otherwise continue current mgmt. 11/13: continue current mgmt. c/o AVH. 11/14: Pt reports feeling mad today because I miss my kids. I have eleven. They're adopted. I've never been . Pt reports ongoing auditory and visual hallucinations. denies SI/HI. Discussed medications; pt reports she would be open to trying new medications such as a mood stabilizer. Pt reports she does not want to take Risperidal again because it gave me sleep paralysis . Will discuss possibility of HECK. 11/15: Pt reports feeling okay today; pt stated, I'm eating and gaining weight. it makes me happy . Pt reports ongoing auditory and visual hallucinations. denies SI/HI. T/W discussed risks/benefits of HECK; pt reports she would rather get an injection than take pills everyday . Pt stated, I know I'm schizophrenic. I think using substances really effected my mental health. I'm done with using . DC Zyprexa. Start: Abilify 5mg PO bedtime 11/16: Pt reports feeling anxious about the future ; pt stated, I don't want to live on the streets. I just want to feel better. I'm not going to use drugs anymore . denies any side effects from medication. Continues to report auditory and visual hallucinations. Pt reports not feeling well and requesting covid test. Pt reports she does not like how Trazodone makes her feel; requested to have it stopped. DC Trazodone Increase Seroquel to 100mg PO bedtime. Ordered Covid swab. 11/17: Pt reports feeling depressed today; pt stated, I miss my family. I saw my two years ago. I spoke to him before coming into the hospital. You guys can talk to him . 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 DC Seroquel DC Abilify Start: Risperidal 1mg PO BID 11/18: Pt reports feeling a little excited today; pt stated, I found out from a friend of mine that my family got green cards. I can't tell you more than that . Pt reports she can feel when one of my family members gets excited ; pt stated, maybe the risperidal opened up a window to excitement for me . denies SI/HI/VH. Reports voices have decreased today. Increase clonidine to 0.1mg PO BID PRN 11/20: Continue current plans and regimen 11/21: Patient reports feeling sad today d/t missing her family. Patient has been refusing Risperidal; pt stated, it was taking away my voices but I felt weird on it and I felt like I was dragging and had a headache . Pt continues to report auditory and visual hallucinations. denies SI/HI. Pt requested to be put back on Abilify. Start: Abilify 5mg PO bedtime Haldol 5mg PO BID PRN 11/22: Pt reports feeling anxious today; pt stated, I want to go to a substance abuse program. I don't want to be on the streets anymore. I keep worrying about tomorrow and then it makes me anxious and depressed . Pt reports she really likes the Abilify because I haven't had voices today ; pt continues to report visual hallucinations of faces . denies SI/HI. 11/23: Pt is requesting an increase in Abilify. Dose increased to 10mg PO daily. Pt stated, the clonidine is working great for my anxiety and my depression is getting better. I'm going to try to go to more groups . She report sleeping well last night. denies SI/HI/AH. Continues to report visual hallucinations. 11/24: Pt reports feeling good today; pt stated, I feel better on the Abilify. I'm hoping to get into a [facility] . denies SI/HI/VH/AH. Continue current tx plan. 11/25: c/o opioid withdrawal Sx in clint, agrees to add methadone 5 mg at HS to see if it improves her Sx. reports attenuated AH. otherwise stable, continue current mgmt. 11/26 schedule haldol 5mg po BID 11/27 continue tx. 11/28 increase haldol 5mg po daily and 10mg po qhs. methadone once a day in AM 45mg po daily-- monitor oversedation. still presenting quite psychotic and with delusions affecting her insight/judgment. 11/29: Pt reports feeling good today; pt stated, I feel like my anxiety is controlled with the clonidine . Pt reports she feels this dose of methadone is working well for me . She reports only hearing voices when she first wakes up in the morning. denies SI/HI/VH. 11/30: Pt reports feeling good today; pt stated, I only had one voice today so far. I'm just having anxiety about where I'm going to go after here. I hope I get into respite and then I'll go to a long-term . denies SI/HI/VH. Continue current tx plan. 12/01: Pt reports feeling good but a little sad because I miss my family . Pt continues to report some voices ; denies SI/HI/VH. Increased Abilify to 15mg PO daily DC Haldol 5mg PO daily 12/02: Pt reports feeling good ; pt stated, my anxiety is low and my depression is better . denies SI/HI/VH. Pt reports hearing one voice in the morning but that's it . Pt states she plans on going to the long-term next week if not accepted to respite. continue current tx plan. 12/03: The nursing staff reported the patient had been complaining of somatic symptoms she does not like the idea of being discharged to respite or long-term. We are ordering a CBC with differential and basic metabolic panel to rule out medical problems. Keep on same treatment. 12/04 blood work came back within normal limits we are starting Claritin 10 mg daily for allergies. No changes in other medications Reason for continued inpatient stay Substantial Risk for: inability to function, rapid decompensation and med/psych decompensation Time Spent With Patient Time: Total time managing care of this patient today __20__ minutes.
[2023-12-04 20:00] VITALS: BP 105/54; PULSE 81; TEMP 36.8; O2SAT 98
[2023-12-04] MEDS: Benztropine Mesylate 0.5 MG TABLET PO (20:57)
[2023-12-04] MEDS: HaloperidoL 5 MG TABLET 10 MG PO (20:57)
[2023-12-05 07:28] VITALS: BP 88/59; PULSE 84; RESP 14; TEMP 36.4; O2SAT 98
[2023-12-05 08:10] VITALS: BP 100/60; PULSE 85
[2023-12-05] MEDS: methADONE HCl 20 MG/2 ML ORAL.CONC 45 MG PO (08:15)
[2023-12-05] MEDS: Docusate Sodium 100 MG CAPSULE PO (08:16)
[2023-12-05] MEDS: ARIPiprazole 15 MG TABLET PO (08:16)
[2023-12-05] MEDS: Loratadine 10 MG TABLET PO (08:17)
[2023-12-05] MEDS: cloNIDine HCL 0.1 MG TABLET 0.05 MG PO ×2 (09:22→18:40)
--- NOTE | 2023-12-05 16:14 | P.PNPSI_ITS ---
Subjective Subjective Date of Service: 12/05/23 Reason For Visit: Crisis Interim History: +AVH of creepy weird child saying weird sexual things to me. i know it's my mind. reporting that at admission she was experiencing such tings about 50 times daily, and now it happens once every three days. very happy with the way the haldol is working for her. does c/o huge cravings for crack, asking for help with that. referred to speak with her attending tomorrow. per staff, dep 7 anx 5 +AH. AH called her a fucking bitch. c/o URI Sx. attended art group. slept about 7 hours. Mental Status Exam Mental Status Exam Narrative: Pt is alert and oriented; behavior is cooperative; dressed in casual attire; mood is described as good ; eye contact appropriate; Speech is normal rate, volume and prosody and not pressured; thought process is organized, future oriented. denies SI/HI. Pt reports AVH today. Diagnostics Vital Signs (24Hr): Vital Signs - 24 hr 12/04/23 20:00 12/05/23 07:28 12/05/23 08:10 Temperature 98.2 F 97.6 F Pulse Rate 81 84 85 Respiratory Rate 14 Blood Pressure 105/54 L 88/59 L 100/60 Pulse Oximetry 98 98 Oxygen Delivery Method Room Air Room Air BMI result Body Mass Index 21.6 Labs 12/04/23 07:51 12/04/23 07:51 Labs: Laboratory Results - last 48 hr 12/04/23 07:51 WBC 6.8 RBC 4.52 Hgb 11.5 L Hct 36.5 L MCV 80.8 MCH 25.4 L MCHC 31.5 RDW 13.8 Plt Count 313 MPV 8.9 L Immature Gran % (Auto) 0.3 Neut % (Auto) 53.2 Lymph % (Auto) 35.2 [place] % (Auto) 9.1 Eos % (Auto) 1.5 Baso % (Auto) 0.7 Lymph # (Auto) 2.4 [place] # (Auto) 0.6 Eos # (Auto) 0.1 Baso # (Auto) 0.1 Abs Immat Gran (auto) 0.02 Absolute Neuts (auto) 3.6 Absolute Nucleated RBC 0.000 Nucleated RBC % (auto) 0.0 Sodium 142 Potassium 4.5 Chloride 106 Carbon Dioxide 29 Anion Gap 12 BUN 14 Creatinine 0.82 Estim Creat Clear Calc 71.4 Estimated GFR > 60 Random Glucose 89 Calcium 9.2 Imaging Radiology Impressions: ITS Impressions Chest X-Ray 11/04/23 15:00 IMPRESSION: Unremarkable examination. Medications Medications Current Medications Acetaminophen (Acetaminophen 325 Mg Tablet) 650 mg PO Q6H PRN PRN Reason: Headache/Pain Mild Scale (1-3) Last Admin: 12/04/23 09:07 Dose: 650 mg Al Hydroxide/Mg Hydroxide (Magnesium Hydrox/Alum Hydrox 30 Ml Oral.Susp) 30 ml PO Q6H PRN PRN Reason: Heartburn/Nausea Last Admin: 12/03/23 13:19 Dose: 30 ml Aripiprazole (Aripiprazole 15 Mg Tablet) 15 mg PO DAILY [facility] Last Admin: 12/05/23 08:16 Dose: 15 mg Benzocaine (Throat Lozenge, Medicated Lozenge) 1 lozenge MUCOUS MEM Q2H PRN PRN Reason: Sore Throat Last Admin: 11/24/23 04:08 Dose: 1 lozenge Benztropine Mesylate (Benztropine Mesylate 0.5 Mg Tablet) 0.5 mg PO BEDTIME [facility] Last Admin: 12/04/23 20:57 Dose: 0.5 mg Calcium Carbonate (Calcium Carbonate 750 Mg Tab.Chew) 750 mg PO Q4H PRN PRN Reason: Heartburn Last Admin: 12/03/23 17:06 Dose: 750 mg Clonidine HCl (Clonidine Hcl 0.1 Mg Tablet) 0.05 mg PO TID PRN; Protocol PRN Reason: anxiety Last Admin: 12/05/23 09:22 Dose: 0.05 mg Docusate Sodium (Docusate Sodium 100 Mg Capsule) 100 mg PO DAILY [facility] Last Admin: 12/05/23 08:16 Dose: 100 mg Haloperidol (Haloperidol 5 Mg Tablet) 10 mg PO BEDTIME [facility] Last Admin: 12/04/23 20:57 Dose: 10 mg Ibuprofen (Ibuprofen 600 Mg Tablet) 600 mg PO Q6H PRN PRN Reason: tooth pain Last Admin: 12/02/23 21:13 Dose: 600 mg Loratadine (Loratadine 10 Mg Tablet) 10 mg PO DAILY [facility] Last Admin: 12/05/23 08:17 Dose: 10 mg Magnesium Hydroxide (Milk Of Magnesia 30 Ml Oral.Susp) 30 ml PO DAILY PRN PRN Reason: Constipation Methadone HCl (Methadone Hcl 20 Mg/2 Ml Oral.Conc) 45 mg PO DAILY [facility] Last Admin: 12/05/23 08:15 Dose: 45 mg Multi-Ingred Cream/Lotion/Oil/Oint (Mineral Oil/Petrolatum,White 106 Gm Tube) 1 appl TOPICAL BID [facility]; Protocol Last Admin: 12/05/23 08:17 Dose: Not Given Nicotine Polacrilex (Nicotine Polacrilex 2 Mg Gum) 4 mg [place]CCAL Q2H PRN PRN Reason: Nicotine Cravings Last Admin: 12/04/23 10:07 Dose: 4 mg Senna (Sennosides 8.6 Mg Tablet) 17.2 mg PO DAILY PRN PRN Reason: Constipation Allergies Allergies Allergy/AdvReac Type Severity Reaction Status Date / Time fish derived [fish] AdvReac Anaphylaxis Verified 11/19/23 21:11 Assessment & Plan Assessment & Plan (1) Schizophrenia: Status: Acute Code(s): F20.9 - Schizophrenia, unspecified Assessment and Plan: Encourage patient to persevere with risperdal trial as she has not been on any one med long enough to gauge response. Also, headache may be caused by ENT issues. (2) Cocaine use disorder, moderate, dependence: Status: Acute Code(s): F14.20 - Cocaine dependence, uncomplicated (3) Opioid use disorder, moderate, dependence: Status: Acute Code(s): F11.20 - Opioid dependence, uncomplicated (4) Acute pharyngitis, unspecified: Status: Acute Code(s): J02.9 - Acute pharyngitis, unspecified Assessment and Plan: rapid strep ordered Plan Ms. Sow is a 43 year-old woman who self presented to [facility] ED reporting increase depression and SI. She also presents with complex system of delusions including paranoid and somatic delusions. It appears she has been mostly untreated. She also presents with substance use disorder. she was started on methadone. We discussed risks, benefits and alternative treatment options, pt agreed to start risperidone. PLAN 1. Admit to [facility], cv 15 minutes checks 2. start risperidone 1mg po BID 3. aftercare planning 4. obtain collateral information 11/09: Keeping to self. Not attending groups. Pt reports she did not take the risperidal this morning because she does not like the way it made her feel; pt was unable to elaborate on this. Discussed zyprexa;risks/benefits, pt agreed to trial medication. She also requested to start hydroxyzine d/t helping with her anxiety. Pt stated, I get overwhelmed with boredom. I just want to punch myself sometimes. I feel like someone is inside me . Pt reports auditory and visual hallucinations; pt stated, the voices make fun of me and I see shadows . Pt reports she would like to go to a substance abuse program when discharged from hospital. DC Risperidal DC Seroquel Start: Zyprexa 10mg PO bedtime Cogentin 0.5mg PO bedtime Hydroxyzine 25mg PO Q6HR PRN anxiety 11/10: Pt reports feeling okay today;pt stated, I have anxiety on and off. I wacked myself in the face yesterday. I don't want to hit myself, sometimes I get overwhelmed. I love myself. I no longer feel like anyone is trying to rape me but the voices keep telling me that someone is trying to kill and rape me and my family . Pt reports visual hallucinations of shadow people . pt denies any side effects from Zyprexa. denies SI/HI. Continue current tx plan. 11/11: Pt reports feeling anxious today; pt stated, coloring usually helps with my anxiety. I didn't hit myself yesterday which is good. The zyprexa seems to be helping . Continues to report auditory and visual hallucinations. Increased Zyprexa to 15mg PO bedtime Start: clonidine 0.1mg PO daily PRN anxiety Senna 17.2mg PO daily 11/12: DC hydroxyzine per pt request, otherwise continue current mgmt. 11/13: continue current mgmt. c/o AVH. 11/14: Pt reports feeling mad today because I miss my kids. I have eleven. They're adopted. I've never been . Pt reports ongoing auditory and visual hallucinations. denies SI/HI. Discussed medications; pt reports she would be open to trying new medications such as a mood stabilizer. Pt reports she does not want to take Risperidal again because it gave me sleep paralysis . Will discuss possibility of HECK. 11/15: Pt reports feeling okay today; pt stated, I'm eating and gaining weight. it makes me happy . Pt reports ongoing auditory and visual hallucinations. denies SI/HI. T/W discussed risks/benefits of HECK; pt reports she would rather get an injection than take pills everyday . Pt stated, I know I'm schizophrenic. I think using substances really effected my mental health. I'm done with using . DC Zyprexa. Start: Abilify 5mg PO bedtime 11/16: Pt reports feeling anxious about the future ; pt stated, I don't want to live on the streets. I just want to feel better. I'm not going to use drugs anymore . denies any side effects from medication. Continues to report auditory and visual hallucinations. Pt reports not feeling well and requesting covid test. Pt reports she does not like how Trazodone makes her feel; requested to have it stopped. DC Trazodone Increase Seroquel to 100mg PO bedtime. Ordered Covid swab. 11/17: Pt reports feeling depressed today; pt stated, I miss my family. I saw my two years ago. I spoke to him before coming into the hospital. You guys can talk to him . 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 DC Seroquel DC Abilify Start: Risperidal 1mg PO BID 11/18: Pt reports feeling a little excited today; pt stated, I found out from a friend of mine that my family got green cards. I can't tell you more than that . Pt reports she can feel when one of my family members gets excited ; pt stated, maybe the risperidal opened up a window to excitement for me . denies SI/HI/VH. Reports voices have decreased today. Increase clonidine to 0.1mg PO BID PRN 11/20: Continue current plans and regimen 11/21: Patient reports feeling sad today d/t missing her family. Patient has been refusing Risperidal; pt stated, it was taking away my voices but I felt weird on it and I felt like I was dragging and had a headache . Pt continues to report auditory and visual hallucinations. denies SI/HI. Pt requested to be put back on Abilify. Start: Abilify 5mg PO bedtime Haldol 5mg PO BID PRN 11/22: Pt reports feeling anxious today; pt stated, I want to go to a substance abuse program. I don't want to be on the streets anymore. I keep worrying about tomorrow and then it makes me anxious and depressed . Pt reports she really likes the Abilify because I haven't had voices today ; pt continues to report visual hallucinations of faces . denies SI/HI. 11/23: Pt is requesting an increase in Abilify. Dose increased to 10mg PO daily. Pt stated, the clonidine is working great for my anxiety and my depression is getting better. I'm going to try to go to more groups . She report sleeping well last night. denies SI/HI/AH. Continues to report visual hallucinations. 11/24: Pt reports feeling good today; pt stated, I feel better on the Abilify. I'm hoping to get into a [facility] . denies SI/HI/VH/AH. Continue current tx plan. 11/25: c/o opioid withdrawal Sx in clint, agrees to add methadone 5 mg at HS to see if it improves her Sx. reports attenuated AH. otherwise stable, continue current mgmt. 11/26 schedule haldol 5mg po BID 11/27 continue tx. 11/28 increase haldol 5mg po daily and 10mg po qhs. methadone once a day in AM 45mg po daily-- monitor oversedation. still presenting quite psychotic and with delusions affecting her insight/judgment. 11/29: Pt reports feeling good today; pt stated, I feel like my anxiety is controlled with the clonidine . Pt reports she feels this dose of methadone is working well for me . She reports only hearing voices when she first wakes up in the morning. denies SI/HI/VH. 11/30: Pt reports feeling good today; pt stated, I only had one voice today so far. I'm just having anxiety about where I'm going to go after here. I hope I get into respite and then I'll go to a correction . denies SI/HI/VH. Continue current tx plan. 12/01: Pt reports feeling good but a little sad because I miss my family . Pt continues to report some voices ; denies SI/HI/VH. Increased Abilify to 15mg PO daily DC Haldol 5mg PO daily 12/02: Pt reports feeling good ; pt stated, my anxiety is low and my depression is better . denies SI/HI/VH. Pt reports hearing one voice in the morning but that's it . Pt states she plans on going to the correction next week if not accepted to respite. continue current tx plan. 12/03: The nursing staff reported the patient had been complaining of somatic symptoms she does not like the idea of being discharged to respite or correction. We are ordering a CBC with differential and basic metabolic panel to rule out medical problems. Keep on same treatment. 12/04 blood work came back within normal limits we are starting Claritin 10 mg daily for allergies. No changes in other medications 12/05: c/o AVH today, also crack cravings. continue current mgmt, pt to discuss Sx with attending provider tomorrow. Reason for continued inpatient stay Substantial Risk for: inability to function and rapid decompensation Time Spent With Patient Time: Total time managing care of this patient today _25___ minutes.
[2023-12-05 20:20] VITALS: BP 105/55; PULSE 76; RESP 16; TEMP 36.7; O2SAT 98
[2023-12-05] MEDS: HaloperidoL 5 MG TABLET 10 MG PO (20:52)
[2023-12-05] MEDS: Benztropine Mesylate 0.5 MG TABLET PO (20:54)
[2023-12-05] MEDS: Nicotine Polacrilex 2 MG GUM 4 MG BUCCAL (20:54)
[2023-12-06 08:29] VITALS: BP 108/67; PULSE 96; RESP 18; TEMP 36.5; O2SAT 99
[2023-12-06] MEDS: methADONE HCl 20 MG/2 ML ORAL.CONC 45 MG PO (08:30)
[2023-12-06] MEDS: Docusate Sodium 100 MG CAPSULE PO (08:31)
[2023-12-06] MEDS: Loratadine 10 MG TABLET PO (08:31)
[2023-12-06] MEDS: ARIPiprazole 15 MG TABLET PO (08:31)
[2023-12-06] MEDS: Mineral Oil/Petrolatum,White 106 GM Tube 1 APPL TOPICAL (08:32)
--- NOTE | 2023-12-06 09:36 | HO.PSYCHPN ---
Subjective Subjective Date of Service: 12/06/23 Reason For Visit: Crisis Subjective Notes: Conditional Voluntary Interim History: Reviewed with Dr. Trent. Pt reports she continues to feel anxious and depressed ; pt stated, I'm starting to have cravings to use crack . She reports auditory hallucinations last night which stated they were going to sexually assault her. denies SI/HI/VH. Increase Abilify to 20mg PO daily. Plan to discharge this week to detention. Medication Compliance: Yes Side effects from medications: No Attending Groups: Intermittent Review of Systems Constitutional: Reports as per HPI Eyes: Reports as per HPI Reports as per HPI Cardiovascular: Reports as per HPI Respiratory: Reports as per HPI Gastrointestinal: Reports as per HPI Genitourinary: Reports as per HPI Musculoskeletal: Reports as per HPI Skin/Breast: Reports as per HPI Reports as per HPI Psychiatric: Reports as per HPI Endocrine: Reports as per HPI Hematologic/Lymphatic: Reports as per HPI Allergic/Immunologic: Reports as per HPI Mental Status Exam Mental Status Exam Narrative: Pt is alert and oriented; behavior is cooperative; dressed in casual attire; mood is described as anxious and depressed ; eye contact appropriate; Speech is normal rate, volume and prosody and not pressured; thought process is organized, future oriented. denies SI/HI/VH. Pt reports auditory hallucinations. Diagnostics Vital Signs (24Hr): Vital Signs - 24 hr 12/05/23 20:20 12/06/23 08:29 Temperature 98.0 F 97.7 F Pulse Rate 76 96 Respiratory Rate 16 18 Blood Pressure 105/55 L 108/67 Pulse Oximetry 98 99 Oxygen Delivery Method Room Air Room Air BMI result Body Mass Index 21.6 Labs 12/04/23 07:51 12/04/23 07:51 Imaging Radiology Impressions: ITS Impressions Chest X-Ray 11/04/23 15:00 IMPRESSION: Unremarkable examination. Medications Medications Current Medications Acetaminophen (Acetaminophen 325 Mg Tablet) 650 mg PO Q6H PRN PRN Reason: Headache/Pain Mild Scale (1-3) Last Admin: 12/04/23 09:07 Dose: 650 mg Al Hydroxide/Mg Hydroxide (Magnesium Hydrox/Alum Hydrox 30 Ml Oral.Susp) 30 ml PO Q6H PRN PRN Reason: Heartburn/Nausea Last Admin: 12/03/23 13:19 Dose: 30 ml Aripiprazole (Aripiprazole 15 Mg Tablet) 15 mg PO DAILY [place] Last Admin: 12/06/23 08:31 Dose: 15 mg Benzocaine (Throat Lozenge, Medicated Lozenge) 1 lozenge MUCOUS MEM Q2H PRN PRN Reason: Sore Throat Last Admin: 11/24/23 04:08 Dose: 1 lozenge Benztropine Mesylate (Benztropine Mesylate 0.5 Mg Tablet) 0.5 mg PO BEDTIME [facility] Last Admin: 12/05/23 20:54 Dose: 0.5 mg Calcium Carbonate (Calcium Carbonate 750 Mg Tab.Chew) 750 mg PO Q4H PRN PRN Reason: Heartburn Last Admin: 12/03/23 17:06 Dose: 750 mg Clonidine HCl (Clonidine Hcl 0.1 Mg Tablet) 0.05 mg PO TID PRN; Protocol PRN Reason: anxiety Last Admin: 12/05/23 18:40 Dose: 0.05 mg Docusate Sodium (Docusate Sodium 100 Mg Capsule) 100 mg PO DAILY [facility] Last Admin: 12/06/23 08:31 Dose: 100 mg Haloperidol (Haloperidol 5 Mg Tablet) 10 mg PO BEDTIME [facility] Last Admin: 12/05/23 20:52 Dose: 10 mg Ibuprofen (Ibuprofen 600 Mg Tablet) 600 mg PO Q6H PRN PRN Reason: tooth pain Last Admin: 12/02/23 21:13 Dose: 600 mg Loratadine (Loratadine 10 Mg Tablet) 10 mg PO DAILY [facility] Last Admin: 12/06/23 08:31 Dose: 10 mg Magnesium Hydroxide (Milk Of Magnesia 30 Ml Oral.Susp) 30 ml PO DAILY PRN PRN Reason: Constipation Methadone HCl (Methadone Hcl 20 Mg/2 Ml Oral.Conc) 45 mg PO DAILY [facility] Last Admin: 12/06/23 08:30 Dose: 45 mg Multi-Ingred Cream/Lotion/Oil/Oint (Mineral Oil/Petrolatum,White 106 Gm Tube) 1 appl TOPICAL BID [facility]; Protocol Last Admin: 12/06/23 08:32 Dose: 1 appl Nicotine Polacrilex (Nicotine Polacrilex 2 Mg Gum) 4 mg BUCCAL Q2H PRN PRN Reason: Nicotine Cravings Last Admin: 12/05/23 20:54 Dose: 4 mg Senna (Sennosides 8.6 Mg Tablet) 17.2 mg PO DAILY PRN PRN Reason: Constipation Allergies Allergies Allergy/AdvReac Type Severity Reaction Status Date / Time fish derived [fish] AdvReac Anaphylaxis Verified 11/19/23 21:11 Assessment & Plan Assessment & Plan (1) Schizophrenia: Status: Acute Code(s): F20.9 - Schizophrenia, unspecified Assessment and Plan: Encourage patient to persevere with risperdal trial as she has not been on any one med long enough to gauge response. Also, headache may be caused by ENT issues. (2) Cocaine use disorder, moderate, dependence: Status: Acute Code(s): F14.20 - Cocaine dependence, uncomplicated (3) Opioid use disorder, moderate, dependence: Status: Acute Code(s): F11.20 - Opioid dependence, uncomplicated (4) Acute pharyngitis, unspecified: Status: Acute Code(s): J02.9 - Acute pharyngitis, unspecified Assessment and Plan: rapid strep ordered Plan Ms. Sow is a 43 year-old woman who self presented to [facility] reporting increase depression and SI. She also presents with complex system of delusions including paranoid and somatic delusions. It appears she has been mostly untreated. She also presents with substance use disorder. she was started on methadone. We discussed risks, benefits and alternative treatment options, pt agreed to start risperidone. PLAN 1. Admit to M3, cv 15 minutes checks 2. start risperidone 1mg po BID 3. aftercare planning 4. obtain collateral information 11/09: Keeping to self. Not attending groups. Pt reports she did not take the risperidal this morning because she does not like the way it made her feel; pt was unable to elaborate on this. Discussed zyprexa;risks/benefits, pt agreed to trial medication. She also requested to start hydroxyzine d/t helping with her anxiety. Pt stated, I get overwhelmed with boredom. I just want to punch myself sometimes. I feel like someone is inside me . Pt reports auditory and visual hallucinations; pt stated, the voices make fun of me and I see shadows . Pt reports she would like to go to a substance abuse program when discharged from hospital. DC Risperidal DC Seroquel Start: Zyprexa 10mg PO bedtime Cogentin 0.5mg PO bedtime Hydroxyzine 25mg PO Q6HR PRN anxiety 11/10: Pt reports feeling okay today;pt stated, I have anxiety on and off. I wacked myself in the face yesterday. I don't want to hit myself, sometimes I get overwhelmed. I love myself. I no longer feel like anyone is trying to rape me but the voices keep telling me that someone is trying to kill and rape me and my family . Pt reports visual hallucinations of shadow people . pt denies any side effects from Zyprexa. denies SI/HI. Continue current tx plan. 11/11: Pt reports feeling anxious today; pt stated, coloring usually helps with my anxiety. I didn't hit myself yesterday which is good. The zyprexa seems to be helping . Continues to report auditory and visual hallucinations. Increased Zyprexa to 15mg PO bedtime Start: clonidine 0.1mg PO daily PRN anxiety Senna 17.2mg PO daily 11/12: DC hydroxyzine per pt request, otherwise continue current mgmt. 11/13: continue current mgmt. c/o AVH. 11/14: Pt reports feeling mad today because I miss my kids. I have eleven. They're adopted. I've never been . Pt reports ongoing auditory and visual hallucinations. denies SI/HI. Discussed medications; pt reports she would be open to trying new medications such as a mood stabilizer. Pt reports she does not want to take Risperidal again because it gave me sleep paralysis . Will discuss possibility of HECK. 11/15: Pt reports feeling okay today; pt stated, I'm eating and gaining weight. it makes me happy . Pt reports ongoing auditory and visual hallucinations. denies SI/HI. T/W discussed risks/benefits of HECK; pt reports she would rather get an injection than take pills everyday . Pt stated, I know I'm schizophrenic. I think using substances really effected my mental health. I'm done with using . DC Zyprexa. Start: Abilify 5mg PO bedtime 11/16: Pt reports feeling anxious about the future ; pt stated, I don't want to live on the streets. I just want to feel better. I'm not going to use drugs anymore . denies any side effects from medication. Continues to report auditory and visual hallucinations. Pt reports not feeling well and requesting covid test. Pt reports she does not like how Trazodone makes her feel; requested to have it stopped. DC Trazodone Increase Seroquel to 100mg PO bedtime. Ordered Covid swab. 11/17: Pt reports feeling depressed today; pt stated, I miss my family. I saw my two years ago. I spoke to him before coming into the hospital. You guys can talk to him . 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 DC Seroquel DC Abilify Start: Risperidal 1mg PO BID 11/18: Pt reports feeling a little excited today; pt stated, I found out from a friend of mine that my family got green cards. I can't tell you more than that . Pt reports she can feel when one of my family members gets excited ; pt stated, maybe the risperidal opened up a window to excitement for me . denies SI/HI/VH. Reports voices have decreased today. Increase clonidine to 0.1mg PO BID PRN 11/20: Continue current plans and regimen 11/21: Patient reports feeling sad today d/t missing her family. Patient has been refusing Risperidal; pt stated, it was taking away my voices but I felt weird on it and I felt like I was dragging and had a headache . Pt continues to report auditory and visual hallucinations. denies SI/HI. Pt requested to be put back on Abilify. Start: Abilify 5mg PO bedtime Haldol 5mg PO BID PRN 11/22: Pt reports feeling anxious today; pt stated, I want to go to a substance abuse program. I don't want to be on the streets anymore. I keep worrying about tomorrow and then it makes me anxious and depressed . Pt reports she really likes the Abilify because I haven't had voices today ; pt continues to report visual hallucinations of faces . denies SI/HI. 11/23: Pt is requesting an increase in Abilify. Dose increased to 10mg PO daily. Pt stated, the clonidine is working great for my anxiety and my depression is getting better. I'm going to try to go to more groups . She report sleeping well last night. denies SI/HI/AH. Continues to report visual hallucinations. 11/24: Pt reports feeling good today; pt stated, I feel better on the Abilify. I'm hoping to get into a [facility] . denies SI/HI/VH/AH. Continue current tx plan. 11/25: c/o opioid withdrawal Sx in clint, agrees to add methadone 5 mg at HS to see if it improves her Sx. reports attenuated AH. otherwise stable, continue current mgmt. 11/26 schedule haldol 5mg po BID 11/27 continue tx. 11/28 increase haldol 5mg po daily and 10mg po qhs. methadone once a day in AM 45mg po daily-- monitor oversedation. still presenting quite psychotic and with delusions affecting her insight/judgment. 11/29: Pt reports feeling good today; pt stated, I feel like my anxiety is controlled with the clonidine . Pt reports she feels this dose of methadone is working well for me . She reports only hearing voices when she first wakes up in the morning. denies SI/HI/VH. 11/30: Pt reports feeling good today; pt stated, I only had one voice today so far. I'm just having anxiety about where I'm going to go after here. I hope I get into respite and then I'll go to a detention . denies SI/HI/VH. Continue current tx plan. 12/01: Pt reports feeling good but a little sad because I miss my family . Pt continues to report some voices ; denies SI/HI/VH. Increased Abilify to 15mg PO daily DC Haldol 5mg PO daily 12/02: Pt reports feeling good ; pt stated, my anxiety is low and my depression is better . denies SI/HI/VH. Pt reports hearing one voice in the morning but that's it . Pt states she plans on going to the detention next week if not accepted to respite. continue current tx plan. 12/03: The nursing staff reported the patient had been complaining of somatic symptoms she does not like the idea of being discharged to respite or detention. We are ordering a CBC with differential and basic metabolic panel to rule out medical problems. Keep on same treatment. 12/04 blood work came back within normal limits we are starting Claritin 10 mg daily for allergies. No changes in other medications 12/05: c/o AVH today, also crack cravings. continue current mgmt, pt to discuss Sx with attending provider tomorrow. 12/06: Pt reports she continues to feel anxious and depressed ; pt stated, I'm starting to have cravings to use crack . She reports auditory hallucinations last night which stated they were going to sexually assault her. denies SI/HI/VH. Increase Abilify to 20mg PO daily. Plan to discharge this week to detention. Patient educated on: diagnosis, medication risk/benefits and therapeutic strategies Informed Consent: understands Reason for continued inpatient stay Substantial Risk for: med/psych decompensation Time Spent With Patient Time: Total time managing care of this patient today _20___ minutes.
[2023-12-06 12:07] VITALS: BP 99/62; PULSE 104
[2023-12-06] MEDS: cloNIDine HCL 0.1 MG TABLET 0.05 MG PO ×2 (12:08→17:56)
[2023-12-06 17:55] VITALS: BP 106/65; PULSE 86
[2023-12-06 20:00] VITALS: BP 111/62; PULSE 89; RESP 16; TEMP 36.8; O2SAT 100
[2023-12-06] MEDS: Benztropine Mesylate 0.5 MG TABLET PO (20:09)
[2023-12-06] MEDS: HaloperidoL 5 MG TABLET 10 MG PO (20:09)
[2023-12-07] MEDS: cloNIDine HCL 0.1 MG TABLET 0.05 MG PO ×3 (01:23→18:43)
[2023-12-07 01:24] VITALS: BP 153/76; PULSE 94; RESP 18
[2023-12-07 07:25] VITALS: BP 93/58; PULSE 83; RESP 14; TEMP 36.5; O2SAT 97
[2023-12-07 08:50] VITALS: BP 109/69; PULSE 92
[2023-12-07] MEDS: methADONE HCl 20 MG/2 ML ORAL.CONC 45 MG PO (08:50)
[2023-12-07] MEDS: ARIPiprazole 20 MG TABLET PO (08:51)
[2023-12-07] MEDS: Docusate Sodium 100 MG CAPSULE PO (08:51)
[2023-12-07] MEDS: Loratadine 10 MG TABLET PO (08:51)
--- NOTE | 2023-12-07 09:00 | HO.PSYCHPN ---
Subjective Subjective Date of Service: 12/07/23 Reason For Visit: Crisis Subjective Notes: Conditional Voluntary Interim History: Reviewed with Dr. Trent. Pt reports feeling excited to leave ; pt stated, I feel happy. I'm glad I'm going to a half-way. I'm going to keep taking my meds. I hope I don't have to come to the hospital again . Pt reports she plans on following up with outpatient providers. denies SI/HI/VH/AH. Medication Compliance: Yes Side effects from medications: No Attending Groups: Intermittent Review of Systems Constitutional: Reports as per HPI Eyes: Reports as per HPI Reports as per HPI Cardiovascular: Reports as per HPI Respiratory: Reports as per HPI Gastrointestinal: Reports as per HPI Genitourinary: Reports as per HPI Musculoskeletal: Reports as per HPI Skin/Breast: Reports as per HPI Reports as per HPI Psychiatric: Reports as per HPI Endocrine: Reports as per HPI Hematologic/Lymphatic: Reports as per HPI Allergic/Immunologic: Reports as per HPI Mental Status Exam Mental Status Exam Narrative: Pt is alert and oriented; behavior is cooperative; dressed in casual attire; mood is described as happy ; eye contact appropriate; Speech is normal rate, volume and prosody and not pressured; thought process is organized, future oriented. denies SI/HI/VH/AH. Patient Appearance: Appropriate Patient Orientation: Person, Place, Time and Situation Level of Consciousness: Awake and Appropriate Patient Behavior: Appropriate and Passive Mood Description: Calm Affect Description: Constricted Patient Cognition Impaired: Yes Ability to Follow Directions: Good Speech Pattern: Clear Memory Description: Intact Diagnostics Vital Signs (24Hr): Vital Signs - 24 hr 12/06/23 12:07 12/06/23 17:55 12/06/23 20:00 Temperature 98.2 F Pulse Rate 104 H 86 89 Respiratory Rate 16 Blood Pressure 99/62 106/65 111/62 Pulse Oximetry 100 Oxygen Delivery Method Room Air 12/07/23 01:24 12/07/23 07:25 12/07/23 08:50 Temperature 97.7 F Pulse Rate 94 83 92 Respiratory Rate 18 14 Blood Pressure 153/76 H 93/58 L 109/69 Pulse Oximetry 97 Oxygen Delivery Method Room Air BMI result Body Mass Index 21.6 Labs 12/04/23 07:51 12/04/23 07:51 Imaging Radiology Impressions: ITS Impressions Chest X-Ray 11/04/23 15:00 IMPRESSION: Unremarkable examination. Medications Medications Current Medications Acetaminophen (Acetaminophen 325 Mg Tablet) 650 mg PO Q6H PRN PRN Reason: Headache/Pain Mild Scale (1-3) Last Admin: 12/04/23 09:07 Dose: 650 mg Al Hydroxide/Mg Hydroxide (Magnesium Hydrox/Alum Hydrox 30 Ml Oral.Susp) 30 ml PO Q6H PRN PRN Reason: Heartburn/Nausea Last Admin: 12/03/23 13:19 Dose: 30 ml Aripiprazole (Aripiprazole 20 Mg Tablet) 20 mg PO DAILY [facility] Last Admin: 12/07/23 08:51 Dose: 20 mg Benzocaine (Throat Lozenge, Medicated Lozenge) 1 lozenge MUCOUS MEM Q2H PRN PRN Reason: Sore Throat Last Admin: 11/24/23 04:08 Dose: 1 lozenge Benztropine Mesylate (Benztropine Mesylate 0.5 Mg Tablet) 0.5 mg PO BEDTIME [facility] Last Admin: 12/06/23 20:09 Dose: 0.5 mg Calcium Carbonate (Calcium Carbonate 750 Mg Tab.Chew) 750 mg PO Q4H PRN PRN Reason: Heartburn Last Admin: 12/03/23 17:06 Dose: 750 mg Clonidine HCl (Clonidine Hcl 0.1 Mg Tablet) 0.05 mg PO TID PRN; Protocol PRN Reason: anxiety Last Admin: 12/07/23 01:23 Dose: 0.05 mg Docusate Sodium (Docusate Sodium 100 Mg Capsule) 100 mg PO DAILY [facility] Last Admin: 12/07/23 08:51 Dose: 100 mg Haloperidol (Haloperidol 5 Mg Tablet) 10 mg PO BEDTIME [facility] Last Admin: 12/06/23 20:09 Dose: 10 mg Ibuprofen (Ibuprofen 600 Mg Tablet) 600 mg PO Q6H PRN PRN Reason: tooth pain Last Admin: 12/02/23 21:13 Dose: 600 mg Loratadine (Loratadine 10 Mg Tablet) 10 mg PO DAILY [facility] Last Admin: 12/07/23 08:51 Dose: 10 mg Magnesium Hydroxide (Milk Of Magnesia 30 Ml Oral.Susp) 30 ml PO DAILY PRN PRN Reason: Constipation Methadone HCl (Methadone Hcl 20 Mg/2 Ml Oral.Conc) 45 mg PO DAILY [facility] Last Admin: 12/07/23 08:50 Dose: 45 mg Multi-Ingred Cream/Lotion/Oil/Oint (Mineral Oil/Petrolatum,White 106 Gm Tube) 1 appl TOPICAL BID PRN; Protocol PRN Reason: Dry Skin Nicotine Polacrilex (Nicotine Polacrilex 2 Mg Gum) 4 mg BUCCAL Q2H PRN PRN Reason: Nicotine Cravings Last Admin: 12/05/23 20:54 Dose: 4 mg Senna (Sennosides 8.6 Mg Tablet) 17.2 mg PO DAILY PRN PRN Reason: Constipation Allergies Allergies Allergy/AdvReac Type Severity Reaction Status Date / Time fish derived [fish] AdvReac Anaphylaxis Verified 11/19/23 21:11 Assessment & Plan Assessment & Plan (1) Schizophrenia: Status: Acute Code(s): F20.9 - Schizophrenia, unspecified Assessment and Plan: Encourage patient to persevere with risperdal trial as she has not been on any one med long enough to gauge response. Also, headache may be caused by ENT issues. (2) Cocaine use disorder, moderate, dependence: Status: Acute Code(s): F14.20 - Cocaine dependence, uncomplicated (3) Opioid use disorder, moderate, dependence: Status: Acute Code(s): F11.20 - Opioid dependence, uncomplicated (4) Acute pharyngitis, unspecified: Status: Acute Code(s): J02.9 - Acute pharyngitis, unspecified Assessment and Plan: rapid strep ordered Plan Ms. Sow is a 43 year-old woman who self presented to [facility] reporting increase depression and SI. She also presents with complex system of delusions including paranoid and somatic delusions. It appears she has been mostly untreated. She also presents with substance use disorder. she was started on methadone. We discussed risks, benefits and alternative treatment options, pt agreed to start risperidone. PLAN 1. Admit to M3, cv 15 minutes checks 2. start risperidone 1mg po BID 3. aftercare planning 4. obtain collateral information 11/09: Keeping to self. Not attending groups. Pt reports she did not take the risperidal this morning because she does not like the way it made her feel; pt was unable to elaborate on this. Discussed zyprexa;risks/benefits, pt agreed to trial medication. She also requested to start hydroxyzine d/t helping with her anxiety. Pt stated, I get overwhelmed with boredom. I just want to punch myself sometimes. I feel like someone is inside me . Pt reports auditory and visual hallucinations; pt stated, the voices make fun of me and I see shadows . Pt reports she would like to go to a substance abuse program when discharged from hospital. DC Risperidal DC Seroquel Start: Zyprexa 10mg PO bedtime Cogentin 0.5mg PO bedtime Hydroxyzine 25mg PO Q6HR PRN anxiety 11/10: Pt reports feeling okay today;pt stated, I have anxiety on and off. I wacked myself in the face yesterday. I don't want to hit myself, sometimes I get overwhelmed. I love myself. I no longer feel like anyone is trying to rape me but the voices keep telling me that someone is trying to kill and rape me and my family . Pt reports visual hallucinations of shadow people . pt denies any side effects from Zyprexa. denies SI/HI. Continue current tx plan. 11/11: Pt reports feeling anxious today; pt stated, coloring usually helps with my anxiety. I didn't hit myself yesterday which is good. The zyprexa seems to be helping . Continues to report auditory and visual hallucinations. Increased Zyprexa to 15mg PO bedtime Start: clonidine 0.1mg PO daily PRN anxiety Senna 17.2mg PO daily 11/12: DC hydroxyzine per pt request, otherwise continue current mgmt. 11/13: continue current mgmt. c/o AVH. 11/14: Pt reports feeling mad today because I miss my kids. I have eleven. They're adopted. I've never been . Pt reports ongoing auditory and visual hallucinations. denies SI/HI. Discussed medications; pt reports she would be open to trying new medications such as a mood stabilizer. Pt reports she does not want to take Risperidal again because it gave me sleep paralysis . Will discuss possibility of HECK. 11/15: Pt reports feeling okay today; pt stated, I'm eating and gaining weight. it makes me happy . Pt reports ongoing auditory and visual hallucinations. denies SI/HI. T/W discussed risks/benefits of HECK; pt reports she would rather get an injection than take pills everyday . Pt stated, I know I'm schizophrenic. I think using substances really effected my mental health. I'm done with using . DC Zyprexa. Start: Abilify 5mg PO bedtime 11/16: Pt reports feeling anxious about the future ; pt stated, I don't want to live on the streets. I just want to feel better. I'm not going to use drugs anymore . denies any side effects from medication. Continues to report auditory and visual hallucinations. Pt reports not feeling well and requesting covid test. Pt reports she does not like how Trazodone makes her feel; requested to have it stopped. DC Trazodone Increase Seroquel to 100mg PO bedtime. Ordered Covid swab. 11/17: Pt reports feeling depressed today; pt stated, I miss my family. I saw my two years ago. I spoke to him before coming into the hospital. You guys can talk to him . 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 DC Seroquel DC Abilify Start: Risperidal 1mg PO BID 11/18: Pt reports feeling a little excited today; pt stated, I found out from a friend of mine that my family got green cards. I can't tell you more than that . Pt reports she can feel when one of my family members gets excited ; pt stated, maybe the risperidal opened up a window to excitement for me . denies SI/HI/VH. Reports voices have decreased today. Increase clonidine to 0.1mg PO BID PRN 11/20: Continue current plans and regimen 11/21: Patient reports feeling sad today d/t missing her family. Patient has been refusing Risperidal; pt stated, it was taking away my voices but I felt weird on it and I felt like I was dragging and had a headache . Pt continues to report auditory and visual hallucinations. denies SI/HI. Pt requested to be put back on Abilify. Start: Abilify 5mg PO bedtime Haldol 5mg PO BID PRN 11/22: Pt reports feeling anxious today; pt stated, I want to go to a substance abuse program. I don't want to be on the streets anymore. I keep worrying about tomorrow and then it makes me anxious and depressed . Pt reports she really likes the Abilify because I haven't had voices today ; pt continues to report visual hallucinations of faces . denies SI/HI. 11/23: Pt is requesting an increase in Abilify. Dose increased to 10mg PO daily. Pt stated, the clonidine is working great for my anxiety and my depression is getting better. I'm going to try to go to more groups . She report sleeping well last night. denies SI/HI/AH. Continues to report visual hallucinations. 11/24: Pt reports feeling good today; pt stated, I feel better on the Abilify. I'm hoping to get into a [facility] . denies SI/HI/VH/AH. Continue current tx plan. 11/25: c/o opioid withdrawal Sx in clint, agrees to add methadone 5 mg at HS to see if it improves her Sx. reports attenuated AH. otherwise stable, continue current mgmt. 11/26 schedule haldol 5mg po BID 11/27 continue tx. 11/28 increase haldol 5mg po daily and 10mg po qhs. methadone once a day in AM 45mg po daily-- monitor oversedation. still presenting quite psychotic and with delusions affecting her insight/judgment. 11/29: Pt reports feeling good today; pt stated, I feel like my anxiety is controlled with the clonidine . Pt reports she feels this dose of methadone is working well for me . She reports only hearing voices when she first wakes up in the morning. denies SI/HI/VH. 11/30: Pt reports feeling good today; pt stated, I only had one voice today so far. I'm just having anxiety about where I'm going to go after here. I hope I get into respite and then I'll go to a half-way . denies SI/HI/VH. Continue current tx plan. 12/01: Pt reports feeling good but a little sad because I miss my family . Pt continues to report some voices ; denies SI/HI/VH. Increased Abilify to 15mg PO daily DC Haldol 5mg PO daily 12/02: Pt reports feeling good ; pt stated, my anxiety is low and my depression is better . denies SI/HI/VH. Pt reports hearing one voice in the morning but that's it . Pt states she plans on going to the half-way next week if not accepted to respite. continue current tx plan. 12/03: The nursing staff reported the patient had been complaining of somatic symptoms she does not like the idea of being discharged to respite or half-way. We are ordering a CBC with differential and basic metabolic panel to rule out medical problems. Keep on same treatment. 12/04 blood work came back within normal limits we are starting Claritin 10 mg daily for allergies. No changes in other medications 12/05: c/o AVH today, also crack cravings. continue current mgmt, pt to discuss Sx with attending provider tomorrow. 12/06: Pt reports she continues to feel anxious and depressed ; pt stated, I'm starting to have cravings to use crack . She reports auditory hallucinations last night which stated they were going to sexually assault her. denies SI/HI/VH. Increase Abilify to 20mg PO daily. Plan to discharge this week to half-way. 12/07: Pt reports feeling excited to leave ; pt stated, I feel happy. I'm glad I'm going to a half-way. I'm going to keep taking my meds. I hope I don't have to come to the hospital again . Pt reports she plans on following up with outpatient providers. denies SI/HI/VH/AH. discharge tomorrow to half-way. Patient educated on: diagnosis, medication risk/benefits, substance abuse and therapeutic strategies Informed Consent: understands Reason for continued inpatient stay Substantial Risk for: stable for discharge Time Spent With Patient Time: Total time managing care of this patient today _30___ minutes.
[2023-12-07 13:11] VITALS: BP 99/67; PULSE 99
[2023-12-07] MEDS: Calcium Carbonate 750 MG TAB.CHEW PO (13:13)
[2023-12-07] MEDS: Sennosides 8.6 MG TABLET 17.2 MG PO (15:42)
[2023-12-07 20:00] VITALS: BP 101/60; PULSE 82; RESP 16; TEMP 37.5; O2SAT 98
[2023-12-07] MEDS: Benztropine Mesylate 0.5 MG TABLET PO (20:33)
[2023-12-07] MEDS: HaloperidoL 5 MG TABLET 10 MG PO (20:33)
[2023-12-08 03:25] VITALS: BP 103/75; PULSE 86; RESP 16
[2023-12-08] MEDS: cloNIDine HCL 0.1 MG TABLET 0.05 MG PO (03:29)
[2023-12-08 07:00] VITALS: BMI 21.6
[2023-12-08 07:29] VITALS: BP 88/58; PULSE 88; RESP 16; TEMP 36.4; O2SAT 99
[2023-12-08 08:05] VITALS: BP 95/66; PULSE 81; O2SAT 100
[2023-12-08] MEDS: Loratadine 10 MG TABLET PO (08:07)
[2023-12-08] MEDS: Sennosides 8.6 MG TABLET 17.2 MG PO (08:07)
[2023-12-08] MEDS: ARIPiprazole 20 MG TABLET PO (08:07)
[2023-12-08] MEDS: Docusate Sodium 100 MG CAPSULE PO (08:08)
[2023-12-08] MEDS: methADONE HCl 20 MG/2 ML ORAL.CONC 45 MG PO (08:09)
[2023-12-08] MEDS: Naloxone HCl Nasal TAKE HOME 4 MG SPRAY 8 MG NOSTRILALT (08:33)
--- NOTE | 2023-12-08 08:36 | PM.PSYDC ---
DS: Providers Provider Date of Service: 12/08/23 Date of admission: 11/07/23 16:26 Date of discharge: 12/08/23 Primary care physician: Uday Physician Admitting clinician: Tammy Sage Attending physician on admission: Faustino Trent Consults: 11/26/23 14:37 Addiction Medicine Routine Consulting Provider: Addiction Covering Reason for consultation: pt interested in switching to sublocade Has provider been notified: Yes Attending physician on discharge: Faustino Trent Discharging clinician: Oanh Alexander DS: Diagnosis Discharge Diagnosis (1) Schizophrenia: Status: Acute (2) Cocaine use disorder, moderate, dependence: Status: Acute (3) Opioid use disorder, moderate, dependence: Status: Acute (4) Acute pharyngitis, unspecified: Status: Acute DS: Medications Discharge Medications Home Medications: Previous Rx's Medication Instructions Recorded aripiprazole 20 mg tablet (Abilify) 20 mg PO DAILY 30 days #30 tabs 12/07/23 benztropine 0.5 mg tablet 0.5 mg PO BEDTIME 30 days #30 tabs 12/07/23 clonidine HCl 0.1 mg tablet 0.05 mg PO TID PRN anxiety 30 days 12/07/23 #45 tabs haloperidol 10 mg tablet 10 mg PO BEDTIME 30 days #30 tabs 12/07/23 loratadine 10 mg tablet 10 mg PO DAILY 30 days #30 tabs 12/07/23 methadone 10 mg/mL oral 45 mg (4.5 mL) PO DAILY #0 mL 12/07/23 concentrate (Methadose) sennosides 17.2 mg tablet 17.2 mg PO DAILY 30 days #30 tabs 12/07/23 Mental Status Exam Mental Status Exam Narrative: Pt is alert and oriented; behavior is cooperative; dressed in casual attire; mood is described as happy ; eye contact appropriate; Speech is normal rate, volume and prosody and not pressured; thought process is organized, future oriented. denies SI/HI/VH/AH. Data Data Completed and Pending Completed studies during hospitalization [Text1]: 12/02/23 12/04/23 13:22 07:51 WBC 6.8 RBC 4.52 Hgb 11.5 L Hct 36.5 L MCV 80.8 MCH 25.4 L MCHC 31.5 RDW 13.8 Plt Count 313 MPV 8.9 L Immature Gran % (Auto) 0.3 Neut % (Auto) 53.2 Lymph % (Auto) 35.2 [place] % (Auto) 9.1 Eos % (Auto) 1.5 Baso % (Auto) 0.7 Lymph # (Auto) 2.4 [place] # (Auto) 0.6 Eos # (Auto) 0.1 Baso # (Auto) 0.1 Abs Immat Gran (auto) 0.02 Absolute Neuts (auto) 3.6 Absolute Nucleated RBC 0.000 Nucleated RBC % (auto) 0.0 Sodium 142 Potassium 4.5 Chloride 106 Carbon Dioxide 29 Anion Gap 12 BUN 14 Creatinine 0.82 Estim Creat Clear Calc 71.4 Estimated GFR > 60 Random Glucose 89 Calcium 9.2 COVID-19 (MAXINE) Negative COVID-19 Clin Com See Note 11/11/23 16:50 Urine clean catch - Urine galvan top Urine Culture - Final 11/04/23 15:40 Urine Catheterized - [place] Catheter Urine Culture - Final Imaging Diagnostic Imaging Impressions Chest X-Ray 11/04/23 15:00 IMPRESSION: Unremarkable examination. DS: Summary Hospital Course Hospital Course: Ms. Sow is a 43 year-old woman who self presented to [facility] ED reporting depression and SI. Her utox was positive for opioids, fentanyl, cocaine. On the unit, pt presents as disheveled. She reports she came to the hospital because I had a fever for the past 2 years. She reports there is something internally wrong, I'm stiff, my muscles are not working, my brain wave is functioning, the patterns that goes through, the profession of my brain, I know what is right and what is wrong. She continued stating basically, I am a smart woman, there is something inside my that needs to come out. She also reports that there have been political forces preventing her from finding her family and having access to her money. She thinks she has about trillion dollars. She denies SI/HI. She appears internally preoccupied although she denies hearing voices. She reports poor sleep. She reports she has been homeless for about 2 years. She states she stays sometimes in the streets. During hospital course, Ms. Sow is a 43 year-old woman who self presented to [facility] reporting increase depression and SI. She also presents with complex system of delusions including paranoid and somatic delusions. It appears she has been mostly untreated. She also presents with substance use disorder. she was started on methadone. We discussed risks, benefits and alternative treatment options, pt agreed to start risperidone. PLAN 1. Admit to M3, cv 15 minutes checks 2. start risperidone 1mg po BID 3. aftercare planning 4. obtain collateral information Keeping to self. Not attending groups. Pt reports she did not take the risperidal this morning because she does not like the way it made her feel; pt was unable to elaborate on this. Discussed zyprexa;risks/benefits, pt agreed to trial medication. She also requested to start hydroxyzine d/t helping with her anxiety. Pt stated, I get overwhelmed with boredom. I just want to punch myself sometimes. I feel like someone is inside me . Pt reports auditory and visual hallucinations; pt stated, the voices make fun of me and I see shadows . Pt reports she would like to go to a substance abuse program when discharged from hospital. DC Risperidal DC Seroquel Start: Zyprexa 10mg PO bedtime Cogentin 0.5mg PO bedtime Hydroxyzine 25mg PO Q6HR PRN anxiety Pt reports feeling okay today;pt stated, I have anxiety on and off. I wacked myself in the face yesterday. I don't want to hit myself, sometimes I get overwhelmed. I love myself. I no longer feel like anyone is trying to rape me but the voices keep telling me that someone is trying to kill and rape me and my family . Pt reports visual hallucinations of shadow people . pt denies any side effects from Zyprexa. denies SI/HI. Pt reports feeling anxious today; pt stated, coloring usually helps with my anxiety. I didn't hit myself yesterday which is good. The zyprexa seems to be helping . Continues to report auditory and visual hallucinations. Increased Zyprexa to 15mg PO bedtime Start: clonidine 0.1mg PO daily PRN anxiety Senna 17.2mg PO daily Pt reports feeling mad today because I miss my kids. I have eleven. They're adopted. I've never been . Pt reports ongoing auditory and visual hallucinations. denies SI/HI. Discussed medications; pt reports she would be open to trying new medications such as a mood stabilizer. Pt reports she does not want to take Risperidal again because it gave me sleep paralysis . Will discuss possibility of HECK. Pt reports feeling okay today; pt stated, I'm eating and gaining weight. it makes me happy . Pt reports ongoing auditory and visual hallucinations. denies SI/HI. T/W discussed risks/benefits of HECK; pt reports she would rather get an injection than take pills everyday . Pt stated, I know I'm schizophrenic. I think using substances really effected my mental health. I'm done with using . DC Zyprexa. Start: Abilify 5mg PO bedtime Pt reports feeling anxious about the future ; pt stated, I don't want to live on the streets. I just want to feel better. I'm not going to use drugs anymore . denies any side effects from medication. Continues to report auditory and visual hallucinations. Pt reports not feeling well and requesting covid test. Pt reports she does not like how Trazodone makes her feel; requested to have it stopped. DC Trazodone Increase Seroquel to 100mg PO bedtime. Ordered Covid swab. Pt reports feeling depressed today; pt stated, I miss my family. I saw my two years ago. I spoke to him before coming into the hospital. You guys can talk to him . 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 DC Seroquel DC Abilify Start: Risperidal 1mg PO BID Pt reports feeling a little excited today; pt stated, I found out from a friend of mine that my family got green cards. I can't tell you more than that . Pt reports she can feel when one of my family members gets excited ; pt stated, maybe the risperidal opened up a window to excitement for me . denies SI/HI/VH. Reports voices have decreased today. Increase clonidine to 0.1mg PO BID PRN Patient reports feeling sad today d/t missing her family. Patient has been refusing Risperidal; pt stated, it was taking away my voices but I felt weird on it and I felt like I was dragging and had a headache . Pt continues to report auditory and visual hallucinations. denies SI/HI. Pt requested to be put back on Abilify. Start: Abilify 5mg PO bedtime Haldol 5mg PO BID PRN Pt reports feeling anxious today; pt stated, I want to go to a substance abuse program. I don't want to be on the streets anymore. I keep worrying about tomorrow and then it makes me anxious and depressed . Pt reports she really likes the Abilify because I haven't had voices today ; pt continues to report visual hallucinations of faces . denies SI/HI. Pt is requesting an increase in Abilify. Dose increased to 10mg PO daily. Pt stated, the clonidine is working great for my anxiety and my depression is getting better. I'm going to try to go to more groups . She report sleeping well last night. denies SI/HI/AH. Continues to report visual hallucinations. c/o opioid withdrawal Sx in clint, agrees to add methadone 5 mg at HS to see if it improves her Sx. reports attenuated AH. otherwise stable, continue current mgmt. schedule haldol 5mg po BID increase haldol 5mg po daily and 10mg po qhs. methadone once a day in AM 45mg po daily-- monitor oversedation. still presenting quite psychotic and with delusions affecting her insight/judgment. Pt reports feeling good today; pt stated, I feel like my anxiety is controlled with the clonidine . Pt reports she feels this dose of methadone is working well for me . She reports only hearing voices when she first wakes up in the morning. denies SI/HI/VH. Pt reports feeling good but a little sad because I miss my family . Pt continues to report some voices ; denies SI/HI/VH. Increased Abilify to 15mg PO daily DC Haldol 5mg PO daily The nursing staff reported the patient had been complaining of somatic symptoms she does not like the idea of being discharged to respite or [facility]. We are ordering a CBC with differential and basic metabolic panel to rule out medical problems. Keep on same treatment. blood work came back within normal limits we are starting Claritin 10 mg daily for allergies. No changes in other medications Pt reports she continues to feel anxious and depressed ; pt stated, I'm starting to have cravings to use crack . She reports auditory hallucinations last night which stated they were going to sexually assault her. denies SI/HI/VH. Increase Abilify to 20mg PO daily. Plan to discharge this week to [facility]. Pt reports feeling excited to leave ; pt stated, I feel happy. I'm glad I'm going to a [facility]. I'm going to keep taking my meds. I hope I don't have to come to the hospital again . Pt reports she plans on following up with outpatient providers. denies SI/HI/VH/AH. discharge tomorrow to [facility]. Time spent discussing smoking cessation with patient: 3 to 10 minutes Status at Discharge Cognitive/behavioral status at discharge: Patient was interviewed prior to discharge and found to be fully oriented and without any SI or HI. Patient has insight and demonstrates good judgment in terms of wanting to pursue treatment. Patient has a safety plan that includes presenting to the closest ER or calling 911 if feeling unsafe. Functional status at discharge: independent ambulation Overall status at discharge: patient is back to baseline Time Spent with Patient Time attestation: Total time managing care of this patient today _30___ minutes. Time spent: Less than 30 minutes Discharge Plan Discharge Anticipated Discharge Date/Time: 12/08/23 11:45 Patient Disposition: [facility] Discharge Diagnosis: Schizophrenia, cocaine use d/o, opioid use d/o Referrals: Methadone Clinic [Other] - 12/09/23 (*Please show up for dosing the day after discharge. Bring your last dose letter with you to the clinic. ) Therapy & Psychiatry [Other] - 12/13/23 (*Please present to the clinic above Tuesdays or between the hours of 10am and 12pm as a walk in to obtain outpatient mental health services. ) Homeless Resources [Other] - 1 Week (Please call the number listed above for resources in the community. ) [facility] [Provider Group] - 1 Week Discharge Medications: New loratadine 10 mg Tablet 10 mg PO DAILY 30 Days Qty: 30 0RF aripiprazole [Abilify] 20 mg Tablet 20 mg PO DAILY 30 Days Qty: 30 0RF benztropine 0.5 mg Tablet 0.5 mg PO BEDTIME 30 Days Qty: 30 0RF haloperidol 10 mg tablet 10 mg PO BEDTIME 30 Days Qty: 30 0RF methadone [Methadose] 10 mg/mL Concentrate 45 mg PO DAILY Qty: 0 0RF Rx Instructions: Partial Fill upon patient request. sennosides 17.2 mg tablet 17.2 mg PO DAILY 30 Days Qty: 30 0RF clonidine HCl 0.1 mg Tablet 0.05 mg PO TID PRN (Reason: anxiety) 30 Days Qty: 45 0RF Protocol: Hold for SBP< HOLD for SBP < : 90 Discharge Orders: Discharge Order (Routine); Ordered 12/08/23 Ordered By: Oanh Alexander Diet: Regular diet Activity on Discharge: As tolerated Stand Alone Forms: Patient Portal Discharge page Print Language: Greenlandic Care Plan Goals: Maintain mood and safe behaviors Take medications as prescribed Continue to pursue sobriety Practice coping skills Continue with outpatient providers and reach out to them as needed Health Concerns: Mood stability and behaviors Sobriety Plan of Treatment: Follow up with your PCP, psychiatric provider and other outpatient providers regarding above concerns Take medications as prescribed Assessment: Patient was interviewed prior to discharge and found to be fully oriented and without any SI or HI. Patient has insight and demonstrates good judgment in terms of wanting to pursue treatment. Patient has a safety plan that includes presenting to the closest ER or calling 911 if feeling unsafe.
== END 2023-12-08 10:30 | disposition home or self-care (01) | DRG 750 ==
LOC: HO.ED 11-07 12:38 → HO.PADLT16 11-07 16:27
PROVIDERS: Nurse Practitioner Family; Psychiatry & Neurology Psychiatry; Admitting Provider Registered Nurse; Emergency Provider Emergency Medicine; Responsible Provider Registered Nurse; Visit Provider Psychiatry & Neurology Psychiatry
DX: F20.9 Schizophrenia, unspecified (principal); R45.851 Suicidal ideations; F11.20 Opioid dependence, uncomplicated; F19.10 Other psychoactive substance abuse, uncomplicated; F14.20 Cocaine dependence, uncomplicated; J02.9 Acute pharyngitis, unspecified; F17.210 Nicotine dependence, cigarettes, uncomplicated; Z20.822 Contact with and (suspected) exposure to COVID-19; Z71.6 Tobacco abuse counseling; Z59.02 Unsheltered homelessness; Z79.899 Other long term (current) drug therapy
CPT/HCPCS: 0241U; 36415; 71046; 80048; 80053; 80307; 81001; 81025; 85025; 87086; 87502; 87635; 87651; 93005; 99285; S9485

== ENCOUNTER → 2023-11-06 15:05 | Outpatient (BNV) | payer SELFPAY | PROVIDERS: Emergency Provider Emergency Medicine; Visit Provider Internal Medicine Cardiovascular Disease | DX: I49.3 Ventricular premature depolarization (principal); I45.10 Unspecified right bundle-branch block | CPT/HCPCS: 93010 ==

== ENCOUNTER → 2023-11-07 16:26 | Outpatient (BNV) | payer OTHER, SELFPAY | PROVIDERS: Admitting Provider Registered Nurse; Emergency Provider Emergency Medicine; Responsible Provider Registered Nurse; Visit Provider Registered Nurse | DX: F20.0 Paranoid schizophrenia (principal); F14.20 Cocaine dependence, uncomplicated; F11.20 Opioid dependence, uncomplicated; J02.9 Acute pharyngitis, unspecified | CPT/HCPCS: 90792; 99231; 99232 ==

== ENCOUNTER 2023-12-15 15:26 | Emergency (ER) | payer OTHER, SELFPAY ==
--- NOTE | ~2023-12-15 | XR_ITS ---
EXAMINATION: XR HAND, RIGHT CLINICAL INFORMATION: Pain and swelling COMPARISON: None available. TECHNIQUE: PA, lateral, and oblique views of the right hand. FINDINGS: No fracture, dislocation or destructive process. Joint spaces are preserved. No erosions. XR/XR hand RT min 3V IMPRESSION: Negative study.
--- NOTE | 2023-12-15 15:52 | ED.GENADULT ---
HPI - General Adult General Chief complaint: Psychiatric Symptoms Stated complaint: right hand swelling, hearing voices SI Time Seen by Provider: 12/15/23 16:23 Source: patient Mode of arrival: ambulatory Limitations: no limitations History of Present Illness HPI narrative: Patient is a 43-year-old female with history of opioid use disorder currently on methadone, cocaine use disorder, schizophrenia, depression presenting to the emergency department with complaint of right hand pain and swelling after shooting heroin in the right 2 days ago. States it feels hot. Does admit to injecting drugs into right hand. Took methadone today. Also reports auditory hallucinations of voices telling her to hurt herself, states she hit herself the other day because of this. Also reports visual hallucinations but states those are not scary. Denies SI/HI. Specifically requesting detox from heroin and crack cocaine. States she was set up to go to a nursing home but when she got there was told there was no room and has been [address]. Related Data Previous Rx's Medication Instructions Recorded aripiprazole 20 mg tablet (Abilify) 20 mg PO DAILY 30 days #30 tabs 12/07/23 benztropine 0.5 mg tablet 0.5 mg PO BEDTIME 30 days #30 tabs 12/07/23 clonidine HCl 0.1 mg tablet 0.05 mg PO TID PRN anxiety 30 days 12/07/23 #45 tabs haloperidol 10 mg tablet 10 mg PO BEDTIME 30 days #30 tabs 12/07/23 loratadine 10 mg tablet 10 mg PO DAILY 30 days #30 tabs 12/07/23 methadone 10 mg/mL oral 45 mg (4.5 mL) PO DAILY #0 mL 12/07/23 concentrate (Methadose) sennosides 17.2 mg tablet 17.2 mg PO DAILY 30 days #30 tabs 12/07/23 Allergies Allergy/AdvReac Type Severity Reaction Status Date / Time fish derived [fish] AdvReac Anaphylaxis Verified 12/15/23 16:13 Review of Systems Review of Systems: All other systems are reviewed and are negative Constitutional: Reports as per HPI and Reports no additional constitutional complaints Eyes: Reports as per HPI and Reports no additional eye complaints Reports system reviewed and no additional complaints, except as documented Cardiovascular: Reports as per HPI and Reports no additional cardiovascular complaints Respiratory: Reports as per HPI and Reports no additional respiratory complaints Gastrointestinal: Reports as per HPI and Reports no additional gastrointestinal complaints Genitourinary: Reports no additional female genitourinary complaints Musculoskeletal: Reports no additional musculoskeletal complaints Skin/Breast: Reports system reviewed and no additional complaints, except as docu Psychiatric: Reports no additional psychiatric complaints Endocrine: Reports no additional endocrine complaints Hematologic/Lymphatic: Reports no additional hematologic/lymphatic complaints Allergic/Immunologic: Reports no additional allergic/immunologic complaints Reports system reviewed and no additional complaints, except as documented and Reports Abnormal speech present [facility] Past Medical History Medical History (Updated 12/16/23 @ 02:06 by Edilma Solares) Depression, unspecified Polysubstance abuse Social History Social History (Updated 12/15/23 @ 20:42 by Jasmyn Mckinnon [facility]) Household Members: Spouse and None Housing: Homeless Unable to assess alcohol history related to: Refusing to respond Comment: M3 Patient Tobacco Use Status: Current everyday Tobacco user Tobacco use type: Cigarette Cigarette Packs Per Day: 1 Cigarettes Per Day: 20.0 Smoked in Last 30 Days: Yes Second Hand Smoke Exposure: Yes Use of substances other than those prescribed or required for medical reasons: Yes Substance Use Type: Crack/Cocaine and Heroin Substance Use Frequency: Chronic Longstanding Last Used Substance: Just Prior to Admission Any prior treatment program specific to substance use: Yes (TSS, MAT ) Advance Directives: No Advance Directives Information Provided: No Patient : No service: No Sexual orientation: Straight/Heterosexual Physical Exam ED Vital Signs: Vital Signs - 24 hr 12/15/23 15:55 12/15/23 16:13 12/16/23 06:00 Temperature 98.4 F Pulse Rate 90 Respiratory Rate 18 16 16 Blood Pressure 132/78 Pulse Oximetry 99 Oxygen Delivery Method Room Air BMI result Body Mass Index 21.4 Vital signs have been reviewed and appear to be correct. Blood pressure elevated. Heart rate normal. Respiratory rate normal. Temperature normal. Oxygen saturation normal. Appearance: Alert. Oriented X3. No acute distress. Head: Normal external exam. Normocephalic. Atraumatic. No Huntley signs noted. No raccoon eyes noted Eyes: PERRLA. EOMI. Conjunctiva and sclera normal. Eyelids normal. ENT: TM's Normal. Pharynx normal. Uvula midline. Moist mucous membranes. No trismus noted. No drooling noted. No muffled voice noted. Neck: Normal inspection. Neck supple. FROM. No adenopathy. Thyroid Normal. No meningeal signs. No neck mass noted. CVS: Normal heart rate and rhythm. Heart sound normal. No murmurs noted. Pulses normal throughout. Respiratory: No respiratory distress. Painless inspiration. Breath sounds normal. No wheezes/rales/rhonchi noted. Chest nontender. No accessory muscle usage noted or decreased air movement noted. Abdomen: Soft and nontender. Bowel sounds normal in all 4 quadrants. No distention noted. No organomegaly noted. No visible injury noted. Back: No CVA tenderness. Full range of motion noted. Skin: Skin warm and dry. Normal skin color. Normal skin turgor. No rashes/lesions/lacerations noted. Extremities: Right hand: Dorsal swelling, mild tenderness to touch, no redness, hotness. Neuro: Oriented X 3. Cranial nerve exam: II-XII are grossly intact No motor deficit. No sensory deficit. Reflexes normal. Course Course Course Narrative: This is a rapid medical exam: Additional HPI, ROS, PE not included below will be deferred to primary provider. Plan: xray, labs, med clearance, CARE eval and addiction medicine consult Reevaluation(s) Reevaluation #1: Right pain after IV shooting heroin in the right hand, will start doxycycline Time: 16:50 Reevaluation #2: Will be a bed search for dual diagnosis of substance abuse and depression with SI. Time: 21:41 Reevaluation #3: observation will end at 8am patient to be transferred to [facility] for inpatient level of care no acute events overnight Time: 06:57 Additional Reevaluation(s): stable overnight planned transfer to [facility] this AM,no event overnight VSS as 6 Am Medications Administered Generic Name Dose Route Start Last Admin Trade Name Freq PRN Reason Stop Dose Admin Doxycycline Monohydrate 100 mg 12/15/23 21:00 12/15/23 20:40 Doxycycline Monohydrate 100 Mg Capsule PO 100 mg BID [place] Administration Discontinued Medications Generic Name Dose Route Start Last Admin Trade Name Freq PRN Reason Stop Dose Admin Ibuprofen 600 mg 12/16/23 01:19 12/16/23 01:23 Ibuprofen 600 Mg Tablet PO 12/16/23 01:20 600 mg ONCE ONE Administration Medical Decision Making Differential Diagnosis Differential Diagnoses: The differential diagnosis associated with the presentation includes (Right hand cellulitis, right hand foreign body, right hand abscess, depression, SI, acute psychosis.) Admission/Observation Consideration of admission/observation: Escalation of care including admission/observation considered Lab Data MDM Lab Attestation statement: I reviewed the patient's lab results. 12/15/23 16:40 12/15/23 16:40 Labs: Lab Results 12/15/23 12/15/23 Range/Units 16:20 16:40 WBC 8.5 (4.8-10.8) X10*3/uL RBC 4.40 (4.20-5.50) X10*6/uL Hgb 11.4 L (12.0-16.0) g/dl Hct 34.6 L (37.0-47.0) % MCV 78.6 L (80.0-98.0) fL MCH 25.9 L (27.0-33.0) pg MCHC 32.9 (31.0-35.0) g/dl RDW 14.1 (11.0-16.0) % Plt Count 316 (160-400) X10*3/uL MPV 8.8 L (9.4-12.3) fL Immature Gran % (Auto) 0.2 (0.0-0.4) % Neut % (Auto) 64.2 (45-73) % Lymph % (Auto) 27.3 (20-40) % [place] % (Auto) 6.7 (2-11) % Eos % (Auto) 1.4 (0-4) % Baso % (Auto) 0.2 (0-2) % Lymph # (Auto) 2.3 (1.2-4.9) X10*3/uL Frederick # (Auto) 0.6 (0.1-1.2) X10*3/uL Eos # (Auto) 0.1 (0.0-0.4) X10*3/uL Baso # (Auto) 0.0 (0.0-0.2) X10*3/uL Abs Immat Gran (auto) 0.02 (0.00-0.03) X10*3/uL Absolute Neuts (auto) 5.5 (2.0-8.3) x10*3/uL Absolute Nucleated RBC 0.000 (0.0-0.012) X10*3/uL Nucleated RBC % (auto) 0.0 (0.0-0.2) /100WBC ESR 13 (0-20) MM/HR Sodium 137 (135-145) mmol/L Potassium 3.8 (3.3-5.1) mmol/L Chloride 105 (96-108) mmol/L Carbon Dioxide 24 (22-29) mmol/L Anion Gap 12 (12-20) BUN 8 L (9-16) mg/dL Creatinine 0.76 (0.5-1.4) mg/dL Estim Creat Clear Calc 77.0 Estimated GFR > 60 Random Glucose 128 H (60-115) mg/dL Calcium 8.5 D (8.4-10.2) mg/dL Total Bilirubin 0.3 (0.0-1.0) mg/dL AST 15 (5-31) U/L ALT 12 (0-31) U/L Alkaline Phosphatase 71 (39-117) U/L C-Reactive Protein 3.17 H (< or = 0.50) mg/dL Total Protein 6.9 (6.5-8.0) g/dL Albumin 3.7 (3.5-5.0) g/dL Beta HCG, Quant < 2 mIU/mL Urine Color Yellow Urine Appearance Cloudy Urine pH 6.0 (5.0-9.0) Ur Specific [place] 1.015 (1.005-1.025) Urine Protein Negative (Neg-Trace) mg/dL Urine Glucose (UA) Negative (Negative) mg/dL Urine Ketones Negative (Negative) mg/dL Urine Blood Negative (Negative) Urine Nitrite Positive H (Negative) Ur Leukocyte Esterase Trace H (Negative) Urine RBC 0-2 (0-2) /HPF Urine WBC 6-10 H (0-5) /HPF Ur Squamous Epith Cells 11-20 (0-2) /HPF Urine Bacteria 4+ (None Seen) Hyaline Casts 0-2 (0-2) /LPF Urine Opiates Screen POSITIVE H (Not Detect) Urine Fentanyl Screen POSITIVE H (Not Detect) Ur Barbiturates Screen Not Detected (Not Detect) Ur Phencyclidine Scrn Not Detected (Not Detect) Ur Amphetamines Screen Not Detected (Not Detect) U Benzodiazepines Scrn Not Detected (Not Detect) Urine Cocaine Screen POSITIVE H (Not Detect) U Marijuana (THC) Screen Not Detected (Not Detect) Ethyl Alcohol < 10 mg/dL COVID-19 (MAXINE) Negative (Negative) COVID-19 Clin Com See Note Independent Interpretation I performed an independent interpretation of an: Plain X-Ray (Right hand: Negative study.) Radiology Impression Discussion of test interpretation with radiology: I have reviewed the radiologist's reading. Chronic Conditions Patient?s care impacted by: Other (IV drug abuse.) Discharge Plan Discharge Clinical Impression: Depression, Polysubstance abuse, Cellulitis of right hand Patient Disposition: Xfer Psychiatric Hosp Transfer Details: [place] TO [facility], [address] [facility], [place] WITH [facility] Prescriptions: No Action loratadine 10 mg Tablet 10 mg PO DAILY 30 Days Qty: 30 0RF aripiprazole [Abilify] 20 mg Tablet 20 mg PO DAILY 30 Days Qty: 30 0RF benztropine 0.5 mg Tablet 0.5 mg PO BEDTIME 30 Days Qty: 30 0RF haloperidol 10 mg tablet 10 mg PO BEDTIME 30 Days Qty: 30 0RF methadone [Methadose] 10 mg/mL Concentrate 45 mg PO DAILY Qty: 0 0RF Rx Instructions: Partial Fill upon patient request. sennosides 17.2 mg tablet 17.2 mg PO DAILY 30 Days Qty: 30 0RF clonidine HCl 0.1 mg Tablet 0.05 mg PO TID PRN (Reason: anxiety) 30 Days Qty: 45 0RF Protocol: Hold for SBP< HOLD for SBP < : 90 Interventions: [place]-Suicide Risk Severity Scale Last Done: 12/16/23 05:03
[2023-12-15 15:55] VITALS: BP 132/78; PULSE 90; RESP 18; TEMP 36.9; O2SAT 99; BMI 21.4
[2023-12-15 16:13] VITALS: RESP 16
[2023-12-15 16:51] LABS: Basophils Percent Auto 0.2 % (0-2); Eosinophils Absolute Auto 0.1 X10*3/uL (0.0-0.4); Eosinophils Percent Auto 1.4 % (0-4); Hematocrit 34.6 % (37.0-47.0); Hemoglobin 11.4 g/dl (12.0-16.0); Imm Gran Abs Auto 0.02 X10*3/uL (0.00-0.03); Imm Gran Pct Auto 0.2 % (0.0-0.4); Lymphocytes Absolute Auto 2.3 X10*3/uL (1.2-4.9); Lymphocytes Percent Auto 27.3 % (20-40); MANUAL DIFF FLAG NO; Mean Corpuscular HGB Conc 32.9 g/dl (31.0-35.0); Mean Corpuscular Hemoglobin 25.9 pg (27.0-33.0); Mean Corpuscular Volume 78.6 fL (80.0-98.0); Mean Platelet Volume 8.8 fL (9.4-12.3); Monocytes Absolute Auto 0.6 X10*3/uL (0.1-1.2); Monocytes Percent Auto 6.7 % (2-11); Neutrophils Absolute Auto 5.5 x10*3/uL (2.0-8.3); Neutrophils Percent Auto 64.2 % (45-73); Platelet Count 316 X10*3/uL (160-400); Red Cell Distribution Width 14.1 % (11.0-16.0); White Blood Count 8.5 X10*3/uL (4.8-10.8)
[2023-12-15 16:54] LABS: Appearance Urine Cloudy; Color Urine Yellow; Glucose Urine UA Negative (Negative); Leukocyte Esterase Urine Trace (Negative); Nitrite Urine Positive (Negative); Specific Gravity - Urine 1.015 (1.005-1.025); UMIC TRIGGER UACC YES; Urine Blood Negative (Negative); Urine Ketones Negative (Negative); Urine Protein Negative (Neg-Trace)
[2023-12-15 17:02] LABS: Amphetamine Screen Urine Not Detected (Not Detect); Barbiturates, Urine Not Detected (Not Detect); Benzodiazepines Screen Urine Not Detected (Not Detect); Cannabinoid Screen Urine Not Detected (Not Detect); Cocaine Screen Urine POSITIVE (Not Detect); Fentanyl, urine POSITIVE (Not Detect); Opiate Screen Urine POSITIVE (Not Detect); Phencyclidine Screen Urine Not Detected (Not Detect)
[2023-12-15 17:05] LABS: Bacteria Urine 4+ (None Seen); Hyaline Casts Urine 0-2 /LPF (0-2); RBC Urine 0-2 /HPF (0-2); UACC Culture Trigger YES
[2023-12-15 17:05] LABS: COVID-19 Test Negative (Negative); IDNOW Serial# 152EDE1D
[2023-12-15 17:20] LABS: Alanine Aminotransferase 12 U/L (0-31); Albumin Level 3.7 g/dL (3.5-5.0); Alkaline Phosphatase 71 U/L (39-117); Anion Gap 12 (12-20); Aspartate Amino Transferase 15 U/L (5-31); Bilirubin Total 0.3 mg/dL (0.0-1.0); Blood Urea Nitrogen 8 mg/dL (9-16); C Reactive Protein 3.17 mg/dL (< or = 0.50); Calcium 8.5 mg/dL (8.4-10.2); Carbon Dioxide 24 mmol/L (22-29); Chloride 105 mmol/L (96-108); Estimated Glomerular Filt Rate > 60; Ethanol < 10 mg/dL; Glucose Random 128 mg/dL (60-115); HCG Quantitative < 2 mIU/mL; Potassium 3.8 mmol/L (3.3-5.1); Sodium 137 mmol/L (135-145); Total Protein 6.9 g/dL (6.5-8.0)
--- NOTE | 2023-12-15 19:04 | PC.NURSE ---
patient appears to remain at rest at present respirations are even and unlabored meeting with care team at present appears in no distress
[2023-12-15 19:51] LABS: Erythrocyte Sedimentation Rate 13 MM/HR (0-20)
[2023-12-15] MEDS: Doxycycline Monohydrate 100 MG CAPSULE PO (20:40)
[2023-12-16] MEDS: Ibuprofen 600 MG TABLET PO (01:23)
[2023-12-16 06:00] VITALS: RESP 16
--- NOTE | 2023-12-16 07:57 | HE.PHANOTE ---
RE: METHADONE DOSING Last dose of methadone 55 mg was given on 12/15/23 at 0948 per Keara COLE at [facility].
[2023-12-16] MEDS: Loratadine 10 MG TABLET PO (08:26)
[2023-12-16] MEDS: Doxycycline Monohydrate 100 MG CAPSULE PO (08:26)
[2023-12-16] MEDS: Sennosides 8.6 MG TABLET 17.2 MG PO (08:26)
[2023-12-16] MEDS: ARIPiprazole 20 MG TABLET PO (08:26)
[2023-12-16] MEDS: methADONE HCl 20 MG/2 ML ORAL.CONC 55 MG PO (08:26)
--- NOTE | 2023-12-16 09:00 | PC.NURSE ---
Spoke with Joelle at [facility] to inform her that EMS has arrived and pt will be transported to their facility arriving in approx 2 hours
== END 2023-12-16 09:00 ==
PROVIDERS: Registered Nurse Emergency; Emergency Provider Emergency Medicine
DX: F32.A Depression, unspecified (principal); L03.113 Cellulitis of right upper limb; F14.20 Cocaine dependence, uncomplicated; F11.20 Opioid dependence, uncomplicated; Z11.52 Encounter for screening for COVID-19; F20.9 Schizophrenia, unspecified; F17.210 Nicotine dependence, cigarettes, uncomplicated; Z79.899 Other long term (current) drug therapy
CPT/HCPCS: 73130; 80053; 80307; 81001; 84702; 85025; 85652; 86140; 87086; 87635; 99285; S9485